=== PATIENT | male | born 1940 | race Caucasian/White ===

== ENCOUNTER 2016-03-20 10:46 | Day surgery (SDC) | payer MEDICARE ==
[~2016-03-20] VITALS: Ht 180.3 cm; Wt 93.4 kg
[~2016-03-20 10:46] MED LIST: AMLO5TAB22 PO; ASPI81TA11 PO; CARV6.252 PO; FAMO1TAB36 PO; FURO1TAB93 PO; LOSA50TA PO; MONT10TA2 PO; RIVA20 PO; SIMV20TA PO
[2016-03-20] MEDS ORDERED: SODIUM CHLORID 0.9% 500 ML IV SCH (11:15)
[2016-03-20] MEDS ORDERED: INSULIN HUMAN REGULAR 1,000 UNITS/10 ML VIAL SQ PRN (11:15)
[2016-03-20] MEDS ORDERED: METOPROLOL TARTRATE 25 MG TAB PO PRN (11:15)
[2016-03-20] MEDS ORDERED: LACTATED RINGER'S 1000 ML IV SCH (11:15)
[2016-03-20] MEDS ORDERED: ceFAZolin 2 GM PREMIX 50 ML IV SCH (11:30)
[2016-03-20] MEDS ORDERED: NS 1000 ML IV SCH (11:30)
[2016-03-20] MEDS ORDERED: MUPIROCIN 2% OINT 1 APPLIC/GM SYR NASAL SCH (11:30)
[2016-03-20] MEDS ORDERED: CHLORHEXIDINE GLUCONATE 2 % 1 PACK (2 CLOTHS) TOP SCH (11:30)
[2016-03-20] MEDS ORDERED: NO Heparin, Lovenox, Coumadin at least 12 hours prior to procedure. XX PRN (11:30)
[2016-03-20] MEDS ORDERED: POVIDONE IODINE 5% (ANTISEPSIS KIT) 4 APPLICATIONS EACH NARE SCH (11:30)
[2016-03-20] MEDS ORDERED: VANCOMYCIN HCL 1000 MG VIAL ONE (11:33)
[2016-03-20] MEDS ORDERED: SODIUM CHLOR 0.9% 250 ML INJ 250 ML ONE (11:33)
[2016-03-20] MEDS ORDERED: FURO1TAB62 PO (11:40)
[2016-03-20] MEDS ORDERED: XARE20TA PO (11:40)
[2016-03-20] MEDS ORDERED: FAMO1TAB37 PO (11:40)
[2016-03-20] MEDS ORDERED: CARV6.25 PO (11:40)
[2016-03-20] MEDS ORDERED: MONT10TA2 PO (11:40)
[2016-03-20] MEDS ORDERED: SACU1TAB4 PO (11:40)
[2016-03-20] MEDS ORDERED: SIMV20TA PO (11:40)
[2016-03-20] MEDS ORDERED: ASPI1TAB69 PO (11:40)
[2016-03-20 11:43] VITALS: BP 129/74; PULSE 86; RESP 18; TEMP 97.5; O2SAT 98
[2016-03-20 11:50] LABS: AUTOMATED NEUTROPHIL # 3.2 TH/MM3 (1.8-7.7); BASOPHIL % 0.2 % (0.0-2.0); EOSINOPHIL # 0.1 TH/MM3 (0-0.4); EOSINOPHIL % 0.5 % (0.0-4.0); HEMATOCRIT 39.6 % (39.0-51.0); LYMPHOCYTE # 20.1 TH/MM3 (1.0-4.8); MEAN CELL VOLUME 94.1 FL (80.0-100.0); MEAN CORPUSCULAR HEMOGLOBIN 31.4 PG (27.0-34.0); MEAN CORPUSCULAR HGB CONC 33.4 % (32.0-36.0); NEUT % 13.3 % (16.0-70.0); PLATELET COUNT 114 TH/MM3 (150-450); RED BLOOD COUNT 4.21 MIL/MM3 (4.50-5.90); RED CELL DISTRIBUTION WIDTH 15.9 % (11.6-17.2); WHITE BLOOD COUNT 24.2 TH/MM3 (4.0-11.0)
[2016-03-20 11:52] LABS: HEMO FLAGS AUTO DIFF
[2016-03-20 12:02] LABS: PROTHROMBIN TIME - PATIENT 11.6 SEC (9.8-11.6)
[2016-03-20 12:04] LABS: BICARBONATE 27.5 MEQ/L (21.0-32.0); POTASSIUM 3.9 MEQ/L (3.5-5.1)
[2016-03-20 12:40] LABS: ATYPICAL LYMPHOCYTES 8 % (0-0); EOSINOPHILS 1 % (0-4); NEUTROPHIL # MANUAL DIFF 3.4 TH/MM3 (1.8-7.7); POLYS (SEG NEUTROPHILS) 14 % (16-70); WBC DIFF SAMPLE 100
[2016-03-20 12:41] LABS: PLATELET ESTIMATE SMEAR LOW (NORMAL); PLATELET MORPHOLOGY NORMAL (NORMAL); SCAN/DIFF FINAL DIFF MANUAL
[2016-03-20] MEDS ORDERED: PHENYLEPH/NS 1000 MCG/10 ML SYR IV ONE (14:34)
[2016-03-20] MEDS ORDERED: PROPOFOL 200 MG/20 ML AMP IV ONE (14:34)
[2016-03-20] MEDS ORDERED: MIDAZOLAM HCL 2 MG/2 ML VIAL ONE (14:34)
[2016-03-20] MEDS ORDERED: LIDOCAINE HCL 2% 50 ML VIAL ONE (14:43)
[2016-03-20] MEDS ORDERED: VANCOMYCIN 500 MG VIAL ONE (14:43)
[2016-03-20] MEDS ORDERED: ACET300T2 PO (16:29)
[2016-03-20] MEDS ORDERED: SOTA80 PO (16:29)
[2016-03-20] MEDS ORDERED: CEPH-460 PO (16:29)
[2016-03-20] MEDS ORDERED: SODIUM CHLORIDE 0.9% FLUSH 5 ML FLUSH IVF PRN (16:30)
[2016-03-20] MEDS ORDERED: ACETAMINOPHEN/CODEINE 300 MG/30 MG TAB PO PRN ×2 (16:30)
[2016-03-20] MEDS ORDERED: ONDANSETRON HCL 4 MG/2 ML VIAL IV PRN (16:30)
[2016-03-20] MEDS ORDERED: PILL SPLITTER OTHER PRN (17:00)
[2016-03-20] MEDS ORDERED: FUROSEMIDE 20 MG TAB PO SCH (17:00)
[2016-03-20] MEDS ORDERED: RIVAROXABAN 20 MG TAB PO SCH (18:30)
[2016-03-20] MEDS ORDERED: MONTELUKAST SODIUM 10 MG TAB PO SCH (21:00)
[2016-03-20] MEDS ORDERED: FAMOTIDINE 20 MG TAB PO SCH (21:00)
[2016-03-20] MEDS ORDERED: SOTALOL HCL 80 MG TAB PO SCH (21:00)
[2016-03-20] MEDS ORDERED: SODIUM CHLORIDE 0.9% FLUSH 5 ML FLUSH IVF SCH (21:00)
[2016-03-21] MEDS ORDERED: SACUBITRIL/VALSARTAN 97 MG-103 MG TAB PO SCH (09:00)
[2016-03-21] MEDS ORDERED: PRAVASTATIN SOD 40 MG TAB PO SCH (09:00)
[2016-03-21] MEDS ORDERED: CARVEDILOL 6.25 MG TAB PO SCH (09:00)
[2016-03-21] MEDS ORDERED: ASPIRIN EC 81 MG TABEC PO SCH (09:00)
--- NOTE | 2016-03-21 14:15 | EKG ---
Date Performed: 03/20/2016 Time Performed: 11:56:02 PTAGE: 75 years EKG: Demand pacing Pacemaker rhythm - no further analysis Compared to previous tracing the patie nt has developed underlying atrial fibrillation with a controlled ventricular response. The patient w as in Sinus rhythm on previous tracing. The rhythm remains largely paced but clinical correlation will be important. Ab normal ECG PREVIOUS TRACING : 12/29/2013 05.53 DOCTOR: Inocencia Jesus Interpretating Date/Time 03/21/2016 14:15:45
--- NOTE | 2016-03-23 08:36 | MP ---
cc: RICH PRASAD M.D. DATE OF SURGERY: 03/20/2016 OPERATION Biventricular pacer defibrillator removal, biventricular pacer defibrillator replacement and device testing. INDICATION Mr. Guerra is a 75-year-old gentleman with ischemic cardiomyopathy, congestive heart failure, ejection fraction around 25% on optimal medical treatment, previous biventricular pacer defibrillator implanted in 2012. Currently the generator is end of life on optimal medical treatment for years. Admitted for generator replacement and device testing. The risks, the nature and the benefit of the procedure are clearly stated to him. The risks include pneumothorax, cardiac perforation, stroke and even . He understands and agreed to proceed. PROCEDURE After written informed consent was obtained, the patient was brought to the EP lab where he was prepped and draped in the usual sterile fashion. Conscious sedation was initiated and maintained throughout the procedure by anesthesiologist. Once sedation was verified, the left infraclavicular area over the existing generator was anesthetized with 2% Xylocaine. Using the ___ blade a 3-cm incision was made over the existing generator. This incision was then taken down deep fascial layer using Bovie cautery and blunt dissection. Once exposed the generator was removed from the pocket. Scar tissue was removed around the lead. The pocket was expanded, pocket revision was performed. Then the leads were disconnected from the generator and connected to the new generator and placed into the pocket. Previous to that the pocket was copiously irrigated using antibiotic solution. I did proceed with device testing. Initial induction consists of T-wave shock ___ ventricular fibrillation that failed to respond to 20 joules, failed 30 joules and was rescued by external 200 joules. At that point the patient was observed. Systolic blood pressure was in the 80s, 90s. I decided not to proceed with further testing. I proceeded with wound closure. The deep fascial layer was approximated using #2-0 Vicryl suture in a continuous fashion. The subcutaneous layer was approximated using #2-0 Vicryl suture in a continuous fashion. The subcuticular layer was approximated using #2-0 Vicryl suture in a continuous fashion. Dermabond adhesive was applied to the wound followed by sterile pressure dressing. There was no complication. The patient tolerated the procedure. Blood loss was minimal. 1. Explanted hardware. The explanted biventricular pacer defibrillator is a [employer], model number [id number] [id number]-T, serial number [id number]. That was implanted in 2010. 2. Implanted hardware. The implanted biventricular pacer defibrillator is a [employer]ronik, model number [id number], serial number [id number]. 3. Threshold. The right atrial pacing threshold cannot be measured. The patient in atrial fibrillation, lead impedance 480 ohms, A Fib wave at 1.1 mV. The right ventricular pacing sensing threshold in bipolar mode was 0.5 volts at 0.4 milliseconds. Lead impedance 420 ohms, R-wave at 7.8 mV. The left ventricular pacing threshold in the bipolar mode was 0.9 volts at 0.5 milliseconds, lead impedance 405 ohms. The right ventricular defibrillatory threshold could not be reached, the patient failed 20 and 30 joules. CONCLUSION Successful biventricular pacer defibrillator removal, biventricular pacer defibrillator replacement. Unsuccessful device testing. COMMENT AND RECOMMENDATION The patient is going to be transferred to the telemetry unit. Will be observed. I will add Sotalol to the current medical regimen based on the renal function. The patient will be discharged home today, will be followed in the office in 3 weeks. MD ERIC Borrero/MARA /4:07 PM /8:13 AM
== END 2016-03-20 18:04 | disposition home or self-care (01) ==
LOC: HDOC 10:46 → HDIC 10:47 → HDOC 18:04
PROVIDERS: ATTEND Internal Medicine Interventional Cardiology
DX: Z45.02 Encounter for adjustment and management of automatic implantable cardiac defibrillator (principal); I11.0 Hypertensive heart disease with heart failure; I50.9 Heart failure, unspecified; I48.91 Unspecified atrial fibrillation; I42.9 Cardiomyopathy, unspecified; I25.2 Old myocardial infarction; J44.9 Chronic obstructive pulmonary disease, unspecified; Z79.82 Long term (current) use of aspirin; Z79.01 Long term (current) use of anticoagulants
CPT/HCPCS: 33264; 80048; 85007; 85027; 85610; 85730; 86850; 86900; 86901; 93005; 93641; C1882; J2250; J2370; J3010; J3370; J7050

== ENCOUNTER 2016-10-02 14:55 | Inpatient (IN) | payer MEDICARE ==
[2016-10-02] VITALS (7 sets, daily range): BP systolic 97–133; BP diastolic 60–85; PULSE 94–110; RESP 18–28; TEMP 97–98.9; O2SAT 94–97
[~2016-10-02] VITALS: Ht 180.3 cm; Wt 94.5 kg
[~2016-10-02 14:55] MED LIST changes: +ACET300T2 PO; -AMLO5TAB22 PO; +ASPI1TAB69 PO; -ASPI81TA11 PO; +CARV6.25 PO; -CARV6.252 PO; +CEPH-460 PO; -FAMO1TAB36 PO; +FAMO1TAB37 PO; +FURO1TAB62 PO; -FURO1TAB93 PO; -LOSA50TA PO; -RIVA20 PO; +SACU1TAB4 PO; +SOTA80 PO; +XARE20TA PO
--- NOTE | 2016-10-02 15:04 | PD ---
Physical Exam Date Seen by Provider: Oct 02, 2016 Time Seen by Provider: 15:02 Narrative 76 YOWM C/O SOB X 3WEEKS. H/O COPD. SEEN BY PMD LAST WEEK. CP WITH BREATHING. VS REVIEWED WAITING FOR BED PLACEMENT Data Data Last Documented VS Vital Signs Date Time Temp Pulse Resp B/P Pulse Ox O2 Delivery O2 Flow Rate FiO2 10/02/16 14:58 98.9 110 18 133/85 94 MDM Supervised Visit with ZAKIYA: René Duarte Oct 02, 2016 15:04
[2016-10-02] MEDS ORDERED: SODIUM CHLORIDE 0.9% FLUSH 10 ML FLUSH IVF PRN (16:00)
[2016-10-02] MEDS ORDERED: ASPI81TA11 PO (16:07)
[2016-10-02] MEDS ORDERED: FERR325T8 PO (16:07)
--- NOTE | 2016-10-02 16:10 | PD ---
HPI Chief Complaint: Respiratory Distress Time Seen by Provider: 16:04 Travel History International Travel<30 days: No Contact w/Intl Traveler<30days: No Traveled to known affect area: No History of Present Illness HPI Patient comes in complaining of shortness of breath ongoing for 3 weeks. Patient states went to his primary care doctor was placed on antibiotics and steroids, which helped the first time however was seen in follow-up approximately 10 days ago and placed on additional antibiotics with no improvement of symptoms. Patient states that he thinks that he had a cold and did not change his CPAP machine mask causing him to reinfect himself. Patient reports increased dyspnea on exertion similar to when he previously had CHF. Patient also complaining of intermittent chest pain more on the right than left similar to heart attack in the past. 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 Patient does have a history of PE taking Xarelto and baby aspirin. Patient reports he did not take his aspirin this morning. Denies any nausea, vomiting, loss change in bowel or bladder, numbness tingling anywhere, headaches, back pain, or known fevers. Patient does report occasional intermittent nonproductive cough. Patient states he feels like he needs to cough something up as been unable to cough anything up. PFSH Past Medical History Hx Anticoagulant Therapy: Yes (aspirin, Xarelto) Arthritis: No Asthma: No Atrial Fibrillation: Yes Autoimmune Disease: No Heart Rhythm Problems: Yes Cancer: Yes (PATIENT STATES DIAGNOSED WITH CLL 2012) Cardiovascular Problems: Yes (pacer, chf, cad) High Cholesterol: No Chemotherapy: No Chest Pain: Yes Congestive Heart Failure: Yes COPD: Yes Cerebrovascular Accident: No Coronary Artery Disease: Yes Diabetes: No Diminished Hearing: Yes Endocrine: No Gastrointestinal Disorders: Yes (diverticulosis) GERD: No Genitourinary: No Hepatitis: No Hiatal Hernia: No Immune Disorder: No Implanted Vascular Access Dvce: Yes Kidney Stones: No Musculoskeletal: No Neurologic: No Psychiatric: No Reproductive: No Respiratory: Yes (Pleural effusion , COPD, sleep apnea) Migraines: No Myocardial Infarction: Yes (NOV 2015) Radiation Therapy: No Renal Failure: No Seizures: No Sickle Cell Disease: No Sleep Apnea: No Thyroid Disease: No Ulcer: No Influenza Vaccination: Yes (Flu booster given 09/2016) Past Surgical History Abdominal Surgery: No AICD: No Arteriovenous Shunt: No Body Medical Devices: POWER PORT TO RIGHT CHEST Cardiac Surgery: Yes (DEFIBRILATOR, STENTS X 3) Ear Surgery: No Endocrine Surgery: No Eye Surgery: No Genitourinary Surgery: No Gynecologic Surgery: No Insulin Pump: No Joint Replacement: No Oral Surgery: No Pacemaker: Yes Thoracic Surgery: No Other Surgery: Yes (Thoracenthesis ) Social History Alcohol Use: No Tobacco Use: No (FORMER) Substance Use: No Allergies-Medications (Allergen,Severity, Reaction): Coded Allergies: No Known Allergies (Unverified , 12/27/13) Reported Meds & Prescriptions Reported Meds & Active Scripts Active Reported Ferrous Sulfate 325 Mg (65 Mg Iron) Tablet 325 Mg PO BID Aspirin EC (Aspirin) 81 Mg Tabdr 81 Mg PO DAILY Xarelto (Rivaroxaban) 20 Mg Tab 20 Mg PO DAILY Singulair (Montelukast Sodium) 10 Mg Tab 10 Mg PO HS Simvastatin 20 Mg Tab 20 Mg PO DAILY Pepcid (Famotidine) 20 Mg Tab 20 Mg PO BID Lasix (Furosemide) 20 Mg Tab 20 Mg PO 2XWEEK Entresto (Sacubitril-Valsartan) 97-103 Mg Tab 1 Tab PO DAILY Coreg (Carvedilol) 6.25 Mg Tab 6.25 Mg PO DAILY Review of Systems Except as stated in HPI: all other systems reviewed are Neg Physical Exam Narrative GENERAL: Well-developed, overly nourished, in no acute distress, and non-ill appearing. SKIN: Focused skin assessment warm and dry. HEAD: Atraumatic. Normocephalic. EYES: Pupils equal and round. EOMI. No scleral icterus. No injection or drainage. ENT: No nasal bleeding or discharge. Mucous membranes pink and moist. NECK: Trachea midline. No JVD. Supple. No nuclear rigidity. CARDIOVASCULAR: Regular rate and rhythm. No murmur appreciated. RESPIRATORY: No accessory muscle use. No respiratory distress. Rales noted bilateral lower lung bases. GASTROINTESTINAL: Abdomen soft, non-tender, nondistended, and no guarding. Hepatic and splenic margins not palpable. Normal bowel sounds 4. No pulsatile mass. MUSCULOSKELETAL: No obvious deformities. No clubbing. No cyanosis. 1+ nonpitting pedal edema laterally. Full range of motion. NEUROLOGICAL: Awake and alert. No obvious cranial nerve deficits. Motor grossly within normal limits. Normal speech. PSYCHIATRIC: Appropriate mood and affect; insight and judgment normal. Data Data Last Documented VS Vital Signs Date Time Temp Pulse Resp B/P Pulse Ox O2 Delivery O2 Flow Rate FiO2 10/02/16 19:42 102 24 97/60 97 Nasal Cannula 3 10/02/16 14:58 98.9 Orders Complete Blood Count With Diff (10/02/16 15:55) Basic Metabolic Panel (Bmp) (10/02/16 15:55) B-Type Natriuretic Peptide (10/02/16 15:55) Act Partial Throm Time (Ptt) (10/02/16 15:55) Prothrombin Time / Inr (Pt) (10/02/16 15:55) Magnesium (Mg) (10/02/16 15:55) Ckmb (Isoenzyme) Profile (10/02/16 15:55) Troponin I (10/02/16 15:55) Iv Access Insert/Monitor (10/02/16 15:55) Electrocardiogram (10/02/16 15:55) Ecg Monitoring (10/02/16 15:55) Oximetry (10/02/16 15:55) Oxygen Administration (10/02/16 15:55) Chest, Single Ap (10/02/16 15:55) Sodium Chloride 0.9% Flush (Ns Flush) (10/02/16 16:00) Arterial Blood Gas (Abg) (10/02/16 15:55) Ct Pulmonary Angiogram (10/02/16 15:55) Aspirin Chew (Aspirin Chew) (10/02/16 16:15) Ceftriaxone Inj (Rocephin Inj) (10/02/16 18:15) Azithromycin Inj (Zithromax Inj) (10/02/16 18:15) Blood Culture (10/02/16 18:08) Furosemide Inj (Lasix Inj) (10/02/16 18:15) Iohexol 350 Inj (Omnipaque 350 Inj) (10/02/16 18:45) Troponin I (10/02/16 18:53) B-Type Natriuretic Peptide (10/02/16 18:53) Consult Medical Oncology (10/02/16 ) Aspirin Ec (Ecotrin Ec) (10/03/16 09:00) Carvedilol (Coreg) (10/03/16 09:00) Famotidine (Pepcid) (10/02/16 21:00) Ferrous Sulfate (Ferrous Sulfate) (10/02/16 21:00) Montelukast (Singulair) (10/02/16 21:00) Rivaroxaban (Xarelto) (10/03/16 09:00) Sacubitril-Valsartan 97-103 Mg (Entresto (10/03/16 09:00) Pravastatin (Pravachol) (10/03/16 09:00) Admit Order (Ed Use Only) (10/02/16 19:38) Admit To Inpatient (10/02/16 ) Vital Signs (Adult) Q4H (10/02/16 19:38) Activity Oob With Assistance (10/02/16 19:38) Range Scientist / Telemetry .CONTINUOUS (10/02/16 19:38) Diet Heart Healthy (10/03/16 Breakfast) Sodium Chloride 0.9% Flush (Ns Flush) (10/02/16 19:45) Sodium Chloride 0.9% Flush (Ns Flush) (10/02/16 21:00) Ondansetron Inj (Zofran Inj) (10/02/16 19:45) Basic Metabolic Panel (Bmp) (10/03/16 06:00) Complete Blood Count With Diff (10/03/16 06:00) Creatine Kinase (Cpk) (10/02/16 19:38) Creatine Kinase (Cpk) (10/03/16 01:38) Troponin I (10/02/16 19:38) Troponin I (10/03/16 01:38) Scd Bilateral/Knee High DYANA.BID (10/02/16 19:38) Naloxone Inj (Narcan Inj) (10/02/16 19:45) Docusate Sodium-Senna (Kamilah-Colace) (10/02/16 21:00) Magnesium Hydroxide Liq (Milk Of Magnesi (10/02/16 19:45) Sennosides (Senokot) (10/02/16 19:45) Bisacodyl Supp (Dulcolax Supp) (10/02/16 19:45) Lactulose Liq (Lactulose Liq) (10/02/16 19:45) Inpatient Certification (10/02/16 ) Furosemide Inj (Lasix Inj) (10/02/16 19:45) Echo 2d Comp With Doppler (10/02/16 ) Consult Hematology (10/02/16 ) Azithromycin Inj (Zithromax Inj) (10/03/16 18:00) Ceftriaxone Inj (Rocephin Inj) (10/03/16 20:00) Labs Laboratory Tests Test 10/02/16 10/02/16 16:09 16:12 Blood Gas Puncture Site RT RADIAL Blood Gas Patient Temperature 98.6 Blood Gas HCO3 21 mmol/L Blood Gas Base Excess -2.5 mmol/L Blood Gas Oxygen Saturation 93 % Arterial Blood pH 7.46 Arterial Blood Partial 29 mmHg Pressure CO2 Arterial Blood Partial 70 mmHG Pressure O2 Arterial Blood Oxygen Content 17.3 Vol % Arterial Blood 2.0 % Carboxyhemoglobin Arterial Blood Methemoglobin 0.3 % Blood Gas Hemoglobin 13.3 G/DL Oxygen Delivery Device NASAL CANNULA Blood Gas Liter Flow 2 L/M White Blood Count 72.0 TH/MM3 Red Blood Count 4.37 MIL/MM3 Hemoglobin 13.8 GM/DL Hematocrit 42.6 % Mean Corpuscular Volume 97.6 FL Mean Corpuscular Hemoglobin 31.5 PG Mean Corpuscular Hemoglobin 32.3 % Concent Red Cell Distribution Width 17.0 % Platelet Count 130 TH/MM3 Mean Platelet Volume 10.7 FL Neutrophils (%) (Auto) 13.7 % Lymphocytes (%) (Auto) 84.8 % Monocytes (%) (Auto) 1.4 % Eosinophils (%) (Auto) 0.0 % Basophils (%) (Auto) 0.1 % Neutrophils # (Auto) 9.8 TH/MM3 Lymphocytes # (Auto) 61.1 TH/MM3 Monocytes # (Auto) 1.0 TH/MM3 Eosinophils # (Auto) 0.0 TH/MM3 Basophils # (Auto) 0.0 TH/MM3 CBC Comment AUTO DIFF Differential Total Cells 100 Counted Neutrophils % (Manual) 9 % Lymphocytes % 89 % Monocytes % 2 % Neutrophils # (Manual) 6.5 TH/MM3 Differential Comment FINAL DIFF MANUAL Smudge Cells PRESENT Platelet Estimate LOW Platelet Morphology Comment NORMAL Prothrombin Time 12.6 SEC Prothromb Time International 1.1 RATIO Ratio Activated Partial 26.6 SEC Thromboplast Time Sodium Level 141 MEQ/L Potassium Level 4.7 MEQ/L Chloride Level 110 MEQ/L Carbon Dioxide Level 23.8 MEQ/L Anion Gap 7 MEQ/L Blood Urea Nitrogen 20 MG/DL Creatinine 1.08 MG/DL Estimat Glomerular Filtration 66 ML/MIN Rate Random Glucose 110 MG/DL Calcium Level 8.7 MG/DL Magnesium Level 2.2 MG/DL Total Creatine Kinase 45 U/L Troponin I 0.02 NG/ML B-Type Natriuretic Peptide 2405 PG/ML MDM Medical Decision Making Medical Screen Exam Complete: Yes Emergency Medical Condition: Yes Interpretation(s) EKG reviewed by Dr. Narvaez shows a fibrillation with ventricular rate of 103. No STEMI. Chest x-ray read by the radiologist shows: 1. Bibasilar patchiness consistent with atelectasis and/or mild infiltrates. 2. Cardiomegaly. 3. Probable small right pleural effusion. CT of the chest read by the radiologist shows: 1. Suboptimal contrast bolus but no definite pulmonary embolus. 2. Small to moderate bilateral pleural effusions. Moderate emphysema. 3. Cardiomegaly with severe coronary calcifications. Pacer leads unchanged. Differential Diagnosis Acute coronary syndrome, CHF exacerbation, COPD exacerbation, metastatic disease , electrolyte abnormality, pneumonia, pneumothorax, other Narrative Course Patient was seen and examined. IV was established. Patient placed on embedded case manager. Initial laboratory and radiologic studies were ordered. Discussed patient with Dr. Narvaez, who is in agreement with plan of care. After lab results posted Dr. Narvaez ordered IV Lasix and IV antibiotics for patient. Discussed patient with oncology who will see the patient in consult. Discussed all findings and plan of care with patient, who is agreeable for admission. All questions were answered.Discussed patient with Dr. Narvaez, who is in agreement with disposition. Discussed patient with hospitalist who is agreeable to admit the patient. Physician Communication Physician Communication [address] Arizmendi, who does not feel patient's CLL is causing his symptoms and that patient can be treated as normal CHF exacerbation. He will see patient in consult. [address] Donohue, is agreeable to this patient for Dr. Kathleen. Diagnosis Primary Impression: CHF exacerbation Qualified Code: I50.9 - Acute on chronic congestive heart failure, unspecified congestive heart failure type Additional Impression: CLL (chronic lymphocytic leukemia) Admitting Information Admitting Physician Requests: Admit Condition: Stable Gonzalo Baxter Oct 02, 2016 16:10
[2016-10-02] MEDS ORDERED: ASPIRIN 81 MG CHEW TAB PO ONE (16:15)
[2016-10-02 16:19] LABS: BLOOD GAS BASE EXCESS -2.5 mmol/L (-2-2); BLOOD GAS HCO3 21 mmol/L (22-26); BLOOD GAS METHEMOGLOBIN 0.3 % (0-2); BLOOD GAS O2 HGB SATURATION 93 % (90-100); BLOOD GAS OXYGEN CONTENT 17.3 Vol % (12.0-20.0); BLOOD GAS PCO2 29 mmHg (38-42); BLOOD GAS PO2 70 mmHG (61-120); BLOOD GAS TOTAL HGB 13.3 G/DL (12.0-16.0); CRITICAL VALUE NO; DRAW SITE RT RADIAL; LITER FLOW 2 L/M; NUMBER OF ARTERIAL PUNCTURES 1; OXYGEN DEVICE NASAL CANNULA; STAT YES; TEMP CORR TO 98.6; ULNAR PULSE PRESENT
--- NOTE | 2016-10-02 16:33 | RADRPT ---
EXAM DATE/TIME: 10/02/2016 16:15 [facility] COMPARISON: CHEST SINGLE AP, January 02, 2013, 7:06. INDICATIONS : Chest pain and shortness of breath. MEDICAL HISTORY : Pulmonary embolus, Chronic lymphatic leukemia, CHF, CAD, HLD, Diverticulosis, HTN, Anemia, COPD. SURGICAL HISTORY : Coronary stent, Pacemaker placement ENCOUNTER: Initial ACUITY: 3 days PAIN SCORE: 5/10 LOCATION: Bilateral chest FINDINGS: The heart is enlarged. Bibasilar patchiness is noted consistent with atelectasis and/or infiltrates. A small right pleural effusion is likely. A right internal jugular [id number] has its tip at the junction of the superior vena cava and right atrium. A left subclavian dual lead pacemaker has its t ips in the right heart. There is no pneumothorax. CONCLUSION: 1. Bibasilar patchiness consistent with atelectasis and/or mild infiltrates. 2. Cardiomegaly. 3. Probable small right pleural effusion. Jose Roberto Hylton MD on October 02, 2016 at 16:28 Board Certified Radiologist. This report was verified electronically.
[2016-10-02 17:03] LABS: APTT (PATIENT) 26.6 SEC (24.3-30.1); INTERNATIONAL NORMALIZED RATIO 1.1 RATIO; PROTHROMBIN TIME - PATIENT 12.6 SEC (9.8-11.6)
[2016-10-02 17:08] LABS: AUTOMATED NEUTROPHIL # 9.8 TH/MM3 (1.8-7.7); BASOPHIL % 0.1 % (0.0-2.0); HEMATOCRIT 42.6 % (39.0-51.0); LYMPH % 84.8 % (9.0-44.0); LYMPHOCYTE # 61.1 TH/MM3 (1.0-4.8); MEAN CELL VOLUME 97.6 FL (80.0-100.0); MEAN CORPUSCULAR HEMOGLOBIN 31.5 PG (27.0-34.0); MEAN CORPUSCULAR HGB CONC 32.3 % (32.0-36.0); MONO % 1.4 % (0.0-8.0); NEUT % 13.7 % (16.0-70.0); PLATELET COUNT 130 TH/MM3 (150-450); RED BLOOD COUNT 4.37 MIL/MM3 (4.50-5.90)
[2016-10-02 17:34] LABS: HEMO FLAGS AUTO DIFF
[2016-10-02 17:43] LABS: BICARBONATE 23.8 MEQ/L (21.0-32.0); MAGNESIUM 2.2 MG/DL (1.5-2.5)
[2016-10-02 17:56] LABS: POTASSIUM 4.7 MEQ/L (3.5-5.1)
[2016-10-02 18:04] LABS: NEUTROPHIL # MANUAL DIFF 6.5 TH/MM3 (1.8-7.7); POLYS (SEG NEUTROPHILS) 9 % (16-70); WBC DIFF SAMPLE 100
[2016-10-02 18:06] LABS: PLATELET ESTIMATE SMEAR LOW (NORMAL); PLATELET MORPHOLOGY NORMAL (NORMAL); SCAN/DIFF FINAL DIFF MANUAL; SMUDGE CELLS PRESENT PRESENT
[2016-10-02] MEDS ORDERED: FUROSEMIDE 40 MG/4 ML VIAL IV PUSH ONE (18:15)
[2016-10-02] MEDS ORDERED: cefTRIAXone INJ 1,000 MG in SODIUM CHLORIDE 0.9% INJ 100 ML IV ONE (18:15)
[2016-10-02] MEDS ORDERED: AZITHROMYCIN INJ 500 MG in SODIUM CHLOR 0.9% 250 ML INJ 250 ML IV ONE (18:15)
[2016-10-02] MEDS ORDERED: IOHEXOL 350 MG/ML 10 ML VIAL (for RAD DIAG) IV ONE (18:45)
--- NOTE | 2016-10-02 19:25 | RADRPT ---
EXAM DATE/TIME: 10/02/2016 18:42 [facility] COMPARISON: No previous studies available for comparison. INDICATIONS : Shortness of breath. IV CONTRAST: 75 cc Omnipaque 350 (iohexol) IV RADIATION DOSE: 23.44 CTDIvol (mGy) MEDICAL HISTORY : Congestive hearrt failure. Myocardial infarction. Hypertension. SURGICAL HISTORY : Pacemaker. ENCOUNTER: Initial ACUITY: 1 day PAIN SCALE: 0/10 LOCATION: chest TECHNIQUE: Volumetric scanning of the chest was performed using a pulmonary embolism protocol MIP images were re constructed. Using automated exposure control and adjustment of the mA and/or kV according to patien t size, radiation dose was kept as low as reasonably achievable to obtain optimal diagnostic quality images. DICOM format image data is available electronically for review and comparison. Follow-up recommendations for detected pulmonary nodules are based at a minimum on nodule size and pa tient risk factors according to Fleischner Society Guidelines. FINDINGS: Contrast bolus is suboptimal with poor opacification of the lower lobe arteries but no definite embol us is identified. There are [id number] bilateral pleural effusions. There is underlying moderate emphysema. Ther e is stable parenchymal scarring in the upper lungs, right greater than left. Severe coronary calcifications are noted. Heart size is enlarged. Pacer leads present in right atrium , right ventricle and coronary sinus. No acute findings in the upper abdomen. CONCLUSION: 1. Suboptimal contrast bolus but no definite pulmonary embolus. 2. Small to moderate bilateral pleural effusions. Moderate emphysema. 3. Cardiomegaly with severe coronary calcifications. Pacer leads unchanged. René Casas MD on October 02, 2016 at 19:15 Board Certified Radiologist. This report was verified electronically.
[2016-10-02] MEDS ORDERED: ONDANSETRON HCL 4 MG/2 ML VIAL IVP PRN (19:45)
[2016-10-02] MEDS ORDERED: SODIUM CHLORIDE 0.9% FLUSH 10 ML FLUSH IV FLUSH PRN (19:45)
[2016-10-02] MEDS ORDERED: MAGNESIUM HYDROXIDE SUSP 30 ML CUP PO PRN (19:45)
[2016-10-02] MEDS ORDERED: NALOXONE HCL 0.4 MG/ML AMP IV PRN (19:45)
[2016-10-02] MEDS ORDERED: LACTULOSE SYRUP 20 GM/30 ML CUP PO PRN (19:45)
[2016-10-02] MEDS ORDERED: SENNOSIDES 8.6 MG TAB PO PRN (19:45)
[2016-10-02] MEDS: FUROSEMIDE 40 MG/4 ML VIAL IV PUSH SCH (19:45)
[2016-10-02] MEDS ORDERED: BISACODYL 10 MG SUPP RECTAL PRN (19:45)
[2016-10-02] MEDS: DOCUSATE SODIUM 50 MG/SENNA 8.6 MG TAB PO SCH (21:00)
[2016-10-02] MEDS: SODIUM CHLORIDE 0.9% FLUSH 10 ML FLUSH IV FLUSH SCH (21:00)
[2016-10-02] MEDS: FAMOTIDINE 20 MG TAB PO SCH (23:11)
[2016-10-02] MEDS: FERROUS SULFATE 325 MG (65 MG ELEMENTAL IRON) TAB PO SCH (23:11)
[2016-10-02] MEDS: MONTELUKAST SODIUM 10 MG TAB PO SCH (23:11)
[2016-10-03] VITALS (9 sets, daily range): BP systolic 105–159; BP diastolic 64–76; PULSE 50–120; RESP 16–20; TEMP 97–97.8; O2SAT 96–98
--- NOTE | 2016-10-03 08:55 | MB ---
cc: SINA TEJADA MD, HANSCY M.D. AILANI, RAJESH K. MD DATE OF CONSULTATION 10/03/2016 DATE OF 1940 REASON FOR CONSULTATION Patient with a history of chronic lymphocytic leukemia; positive for disease in ZP-70 mutation. Initial diagnosis was established in 2012. Treatment history to date: The patient is treatment naive. CHIEF COMPLAINT Progressive difficulty breathing especially when laying flat. The patient also reports having swollen legs. HISTORY OF PRESENT ILLNESS Mr. Guerra is a very pleasant 76-year-old man who was diagnosed in 2012 with chronic lymphocytic leukemia. He was under the care of my now retired associate Dr. Mj Chamorro, who had been monitoring the patient off therapy. The patient was most recently seen by Dr. Chamorro in November of 2015 and at that time was told of progression of his CLL. The patient was advised systemic therapy and an infusion port was placed. Shortly after that, Mr. Guerra suffered a myocardial infarction, he underwent cardiac stenting at the [facility] and missed subsequent follow ups with Dr. Chamorro. The patient has not since then been able to establish hematology followup and was scheduled to meet with Dr. Benson Watson in the upcoming weeks. He became increasingly short of breath and presented to [facility] last night. His WBC count at the time of presentation was noted to be 72,000 with an absolute lymphocyte count of 61,000. He had no evidence of anemia with a hemoglobin of 13.8 gm/dl and he had only minor thrombocytopenia with platelet count of 130,000. The patient specifically denies B-type symptoms of fevers, night sweats, chills, weight loss, loss of appetite or fatigue. PAST MEDICAL HISTORY 1. Coronary artery disease 2. Congestive heart failure 3. Chronic lymphocytic leukemia 4. COPD 5. Personal history of tobaccoism. PAST SURGICAL HISTORY 1. Coronary artery stent placement x2. 2. Implanted defibrillator placement. FAMILY HISTORY Father of malignancy; the patient is not certain what type. Mother at the age of 87. The patient's brother has coronary artery disease and is status post coronary artery bypass graft surgery. SOCIAL HISTORY The patient lives at home with his ex-. 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 He reports formerly being a smoker, but quit smoking in the 1970s. He denies alcohol abuse. ALLERGIES NO KNOWN DRUG ALLERGIES. CURRENT INPATIENT MEDICATIONS 1. Azithromycin 500 mg IV q.24 h 2. Ceftriaxone one gram IV q.24 h 3. Aspirin 81 mg daily 4. Coreg 6.25 mg p.o. daily 5. Famotidine 20 mcg p.o. t.i.d. 6. Ferrous sulfate 325 mg p.o. b.i.d. 7. Furosemide 40 mcg IV twice daily 8. Lactulose 30 mg p.o. daily for severe constipation 9. Milk of magnesia as needed for constipation 10. Zofran 4 mg IV q.6 h as needed for nausea and vomiting. 11. Pravastatin 40 mcg p.o. daily. 12. Xarelto 20 mg p.o. daily REVIEW OF SYSTEMS A 13-point review of systems were obtained. The following are the pertinent positives and negatives: CONSTITUTIONAL: The patient denies fevers, chills, night sweats, weight loss or loss of appetite. HEENT: Denies headaches, blurry vision, difficulty swallowing or sore throat. RESPIRATORY: Reports exertional dyspnea, denies cough or hemoptysis. Denies pleuritic chest pain. CARDIOVASCULAR: Reports exertional dyspnea, reports orthopnea and PND, reports lower extremity edema. He denies palpitations or angina-like chest pain. GI: Denies nausea, vomiting, diarrhea hematochezia, melena, abdominal distension or yellow jaundice. : No complaints. MUSCULOSKELETAL: Denies any acute complaints. No other complaints reported. PHYSICAL EXAMINATION VITAL SIGNS: Temperature 97 degrees Fahrenheit, heart rate 91 beats minute, respiratory rate 18, blood pressure 108/66, O2 sats 97% on three liters nasal cannula. GENERAL PHYSICAL APPEARANCE: Mr. Guerra is an elderly male, he is sitting up on a bedside chair. He appears to be in no acute distress. He has a calm and collected composure. HEENT: Head atraumatic, normocephalic, conjunctive are not pale. Sclerae are anicteric, EOMI, PERRLA, oral exam, no pharyngeal erythema. NECK: No palpable cervical or supraclavicular adenopathy. RESPIRATORY: Good air movement bilaterally. No added breath sounds. CARDIOVASCULAR: Regular rate and rhythm, S1-S2 without any obvious murmurs, rubs or gallops. ABDOMEN: Thin belly, soft, nontender, nondistended. No palpable organ enlargement, specifically splenomegaly. EXTREMITIES: Lower extremities have trace pretibial edema bilaterally. HEME/LYMPH EXAMINATION: The patient has no palpable cervical, supraclavicular, axillary or inguinal lymphadenopathy appreciated. SKIN: Examination appears benign. LABORATORY FINDINGS Blood work dated 10/02/2016: WBC count 72, hemoglobin 13.8 gm/dl, hematocrit 42.6%, platelet count is 130, absolute neutrophil count is 9.8, absolute lymphocyte count 1.1. Lymphocyte percentage is 89%. Chemistries: Dated 10/02/2016: Sodium 141, potassium 4.7, chloride 110, bicarbonate 24, BUN 20, creatinine 1, random glucose 110, calcium 8.7, magnesium 2.2, BNP is 3143. IMAGING STUDIES CT angiogram dated 10/02/2016 indicates suboptimal contrast bolus but no definite evidence of pulmonary embolus. Small to moderate bilateral pleural effusions, moderate emphysema. Cardiomegaly with severe coronary artery calcifications. Pacemaker leads are unchanged. ASSESSMENT Mr. Guerra is a very pleasant 76-year-old man with a four-year history of chronic lymphocytic leukemia. His CLL has not yet required systemic therapy. He had been previously under the care of Dr. Mj Chamorro until Dr. Chamorro's jail. Over the past eight months since Dr. Chamorro retired, Mr. Guerra has yet to reestablish hematology followup. The patient, over the past year, has had issues with coronary artery disease and has required one coronary angiogram with stenting. This was performed last fall at [facility]. Additionally, the patient has been under care of Dr. Tellez for management of his congestive heart failure as well as his coronary artery disease. The patient reports having had increasing difficulty breathing with exertion, as well as increasing difficulty breathing when reclining or laying down in bed over the past two weeks. He came into the hospital for further workup and management. Imaging studies indicate no evidence of pulmonary emboli. BNP was noted to be elevated above 3000. His symptoms were attributed to congestive heart failure and he is currently being diuresed. From a hematologic standpoint, the patient's total white cell count and his absolute lymphocyte count in particular are noted to be increased. He has no evidence of anemia and has mild thrombocytopenia at this time. The hematology service has been asked to see him to determine if his CLL may be contributing to his current symptoms and also to determine if there is an indication for imminent systemic therapy. RECOMMENDATIONS CLL: Given this patient's lack of B-type symptoms of fevers, chills, night sweats, weight loss, lymphadenopathy or end-organ damage, as well as lack of evidence of anemia or thrombocytopenia related to CLL, I am not able to conclude his CLL warrants systemic therapy at this time. Typically, we monitor individuals with CLL almost regardless of the absolute lymphocyte count so long as they are asymptomatic. Often times, the patient remains asymptomatic with absolute lymphocyte counts in the 150,000-200,000 range. Because CLL cells typically are mature lymphocytes, they tend not to interfere with microcirculation. There is a phenomenon of leukostasis which occurs with myeloid blasts which are typically larger cells, however, that is not a phenomenon described as commonly associated with CLL. I would, therefore, recommend the patient be treated as per the internal medicine and cardiology services assessment of CHF exacerbation. He may be discharged once his symptoms are controlled. At that point, we will establish outpatient hematology followup. MD NANCY Snyder/OZIEL /8:07 AM /8:34 AM
--- NOTE | 2016-10-03 09:23 | EKG ---
Date Performed: 10/02/2016 Time Performed: 16:18:38 PTAGE: 76 years EKG: ATRIAL FIBRILLATION WITH RAPID VENTRICULAR RESPONSE MINIMAL VOLTAGE CRITERIA FOR LVH, CONSI MANDEEP NORMAL VARIANT SEPTAL MYOCARDIAL INFARCTION MODERATE T-WAVE ABNORMALITY, CONSIDER LATERAL ISCHEMI A ABNORMAL ECG Compared to PREVIOUS TRACING the paced beats are no longer seen, rate is faster PREVIOUS TRACIN 11.56 DOCTOR: Kale Montoya Interpretating Date/Time 10/03/2016 09:20:02
[2016-10-03 09:26] LABS: BICARBONATE 23.9 MEQ/L (21.0-32.0); POTASSIUM 3.8 MEQ/L (3.5-5.1)
[2016-10-03 09:30] LABS: AUTOMATED NEUTROPHIL # 10.8 TH/MM3 (1.8-7.7); BASOPHIL # 0.1 TH/MM3 (0-0.2); BASOPHIL % 0.1 % (0.0-2.0); EOSINOPHIL # 0.2 TH/MM3 (0-0.4); EOSINOPHIL % 0.2 % (0.0-4.0); HEMATOCRIT 40.8 % (39.0-51.0); LYMPH % 82.9 % (9.0-44.0); LYMPHOCYTE # 61.8 TH/MM3 (1.0-4.8); MEAN CELL VOLUME 97.6 FL (80.0-100.0); MEAN CORPUSCULAR HEMOGLOBIN 31.7 PG (27.0-34.0); MEAN CORPUSCULAR HGB CONC 32.5 % (32.0-36.0); MONO % 2.3 % (0.0-8.0); NEUT % 14.5 % (16.0-70.0); PLATELET COUNT 128 TH/MM3 (150-450); RED BLOOD COUNT 4.18 MIL/MM3 (4.50-5.90); RED CELL DISTRIBUTION WIDTH 17.4 % (11.6-17.2); WHITE BLOOD COUNT 74.7 TH/MM3 (4.0-11.0)
[2016-10-03 09:39] LABS: HEMO FLAGS AUTO DIFF
[2016-10-03] MEDS: DOCUSATE SODIUM 50 MG/SENNA 8.6 MG TAB PO SCH ×2 (09:44→21:00)
[2016-10-03] MEDS: PRAVASTATIN SOD 40 MG TAB PO SCH (09:44)
[2016-10-03] MEDS: ASPIRIN EC 81 MG TABEC PO SCH (09:44)
[2016-10-03] MEDS: CARVEDILOL 6.25 MG TAB PO SCH (09:45)
[2016-10-03] MEDS: FERROUS SULFATE 325 MG (65 MG ELEMENTAL IRON) TAB PO SCH ×2 (09:45→21:11)
[2016-10-03] MEDS: FAMOTIDINE 20 MG TAB PO SCH ×2 (09:45→21:11)
[2016-10-03] MEDS: RIVAROXABAN 20 MG TAB PO SCH (09:45)
[2016-10-03] MEDS: FUROSEMIDE 40 MG/4 ML VIAL IV PUSH SCH ×2 (09:46→18:32)
[2016-10-03] MEDS: SODIUM CHLORIDE 0.9% FLUSH 10 ML FLUSH IV FLUSH SCH ×2 (09:46→21:12)
[2016-10-03] MEDS: SACUBITRIL/VALSARTAN 97 MG-103 MG TAB PO SCH (10:30)
--- NOTE | 2016-10-03 11:07 | MH ---
cc: TRAY HAWK MD DATE OF ADMISSION 10/02/2016 CHIEF COMPLAINT Shortness of breath HISTORY OF PRESENT ILLNESS This is a 76-year-old male with a past medical and surgical history significant for CLL chronic lymphocytic leukemia diagnosed in 2012, history of congestive heart failure, coronary artery disease, pacemaker placement, history of diverticulosis sleep apnea, COPD, history of pleural effusion, myocardial infarction in November 2015. He had a port placement on the right side of the chest for CLL, defibrillator and stent placement, defibrillator and three stent placement, history of thoracocentesis in the past. He is a former smoker and quit a long time ago. He came to the ER at [facility] complaining of shortness of breath going on for the last three weeks. He stated that he went to see his primary care doctor, was placed on antibiotics and steroids which helped, but first however, he was seen in a follow appointment 10 days ago and placed on additional antibiotic with no improvement of the symptom. He has some cough, but was unable to bring any phlegm out. He says he had a cold and did not change the C-PAP machine mouth causing him to re-infect himself. The patient reported increased dyspnea and exertional dyspnea as well as a mild orthopnea, so he had congestive heart failure. He is also complaining of intermittent chest pain more on the right side than similar to heart attack in the past. Patient reports he has CLL and has not seen an oncologist in almost a year secondary to his mcc. He does, however, have a history of pulmonary embolism taking Xarelto and baby aspirin. He denies any nausea or vomiting, any diarrhea, any headaches, any numbness, tingling, blood in the urine, any black stool, blood in the stool any abdominal pain or any other symptoms, other than that, nothing significant. PAST MEDICAL AND SURGICAL HISTORY As dictated above. SOCIAL HISTORY He denies smoking. He is ex-smoker, quit many years ago. Drinks alcohol socially. Denies any drug abuse. Lives at home with ex-. He is retired. ALLERGIES NO KNOWN DRUG ALLERGIES. MEDICATIONS Includes: 1. Ferrous sulfate 325 mg twice a day 2. Aspirin 81 mg p.o. daily 3. Xarelto 20 mg p.o. daily 4. Singulair 10 mg daily 5. Simvastatin 20 mg p.o. daily 6. Pepcid 20 mg twice a day 7. Lasix 20 mg p.o. two times a week 8. Entresto 97/103 mg daily 9. Coreg 6.25 mg p.o. daily REVIEW OF SYSTEMS Positive for shortness of breath and feeling weak and tired, all other review of systems are negative. PHYSICAL EXAMINATION This is a 76-year-old male sitting on the chair not in acute distress. VITAL SIGNS: Temperature 97.2, heart rate 95, respiration 20, blood pressure 125/76, O2 saturation 98% on three liters nasal cannula. HEENT: Normocephalic, atraumatic. EOMI. PERRL. Oral mucosa moist. NECK: Supple. No visible thyromegaly or neck mass. Trachea central. CARDIOVASCULAR: Regular rate and rhythm. Respirations, bilateral mild crackles. Decreased air entry at the bases. ABDOMEN: Soft and nontender. Bowel sounds audible. EXTREMITIES: No cyanosis or clubbing. Full range of motion of all extremities, +1 nonpitting edema bilateral lower extremity. Full range of motion of all extremities. NEUROLOGIC: Awake, alert and oriented x4. No focal deficits. SKIN: Warm and dry. PSYCH: The patient is cooperative. Mood and affect is normal. LABORATORY DATA Includes CBC is totally unremarkable except for WBC count 74.7. The patient has CLL. Hemoglobin 13.2, hematocrit 40.8, platelet count 128 low. Blood gas shows a pH of 98.6, bicarb 21 low, base excess 2.5 low, pH of 7.46 high, pCO2 29 low, pO2 70. BMP totally unremarkable except for BUN 24 high, glucose random 57 low. BNP 2405 high, 3143 high, troponin-I less than 0.0251 and 0.02 the next one. Creatinine kinase total was 22. PT 12.6, INR 1.1, APTT 26.6. Blood cultures x2 done are negative so far. Chest x-ray was done shows bilateral patches consistent with atelectasis or mild infiltrates. Cardiomegaly, probable small right pleural effusion. CT angio of the chest was done shows suboptimal contrast bolus, but no definitive pulmonary embolism, small to moderate bilateral pleural effusion, moderate emphysema, cardiomegaly with severe coronary calcification. ASSESSMENT/PLAN This is a 76-year male admitted and diagnosed with: 1. Shortness of breath most likely secondary to CHF exacerbation, most likely acute on chronic systolic heart failure. We will do strict I's and O's with fluid restriction to 1.5 liters a day, salt restriction to 2 grams a day. The patient started on Lasix 40 mg IV twice a day. Consulted cardiology for further recommendation. 2. Shortness of breath most likely from pneumonia too. The patient is on Rocephin one gram IV daily and Zithromax 500 mg IV daily. I will start DuoNeb nebulization every 6 hours p.r.n. shortness of breath, cough and wheezing. 3. History of hyperlipidemia. Continue home medications. 4. History of coronary artery disease continue home medications. 5. History of pulmonary room. Continue Xarelto 20 mg p.o. daily. 6. History of iron deficiency anemia. Continue ferrous sulfate 325 mg p.o. daily. 7. DVT prophylaxis, Xarelto 20 mg p.o. daily. 8. GI prophylaxis. Pepcid 20 mg twice a day. 9. History of her CLL hematology consulted. Further recommendation per hematology. We are going to manage this patient on a daily basis and make recommendation on a daily basis. Tray Hawk MD EA/OZIEL /9:57 AM /10:42 AM
[2016-10-03 12:27] LABS: BANDS 1 % (0-6); EOSINOPHILS 1 % (0-4); NEUTROPHIL # MANUAL DIFF 11.2 TH/MM3 (1.8-7.7); PLATELET ESTIMATE SMEAR LOW (NORMAL); PLATELET MORPHOLOGY NORMAL (NORMAL); POLYS (SEG NEUTROPHILS) 14 % (16-70); WBC DIFF SAMPLE 100
[2016-10-03 12:28] LABS: SCAN/DIFF FINAL DIFF MANUAL; SMUDGE CELLS PRESENT PRESENT
[2016-10-03] MEDS: RESP: ALBUTEROL 2.5 MG/IPRATROPIUM 0.5 MG NEB (SCH) NEB ×2 (13:17→19:06)
--- NOTE | 2016-10-03 16:37 | MB ---
cc: Ishaan SAM DATE OF CONSULTATION 10/03/16 HISTORY Mr. Guerra is a 76-year-old white male with a history of congestive heart failure, coronary artery disease status post at least two stents. Last was in November of last year at which time he had an AL, was treated in [place]. He is taken care of as an outpatient by a integrated marketing intern and a well puller and has had gradually increasing edema with shortness of breath. He presented to the emergency room yesterday with these symptoms and an initial chest x-ray revealed bibasilar infiltrates and effusions and a CTA revealed no evidence of pulmonary embolism but moderate bilateral pleural effusions with underlying emphysema and cardiomegaly. The patient was admitted, diuretics were begun and he is feeling a little better. Consult is in for cardiology as well. I am asked to see him for possible pneumonia. The patient denies significant congestion or sputum. He has been short of breath and has had a nonproductive cough. No chest pain. He has not noticed increasing edema, although on exam he does have it. He was a former smoker but quit smoking 30 or 40 years ago and has not been treated for emphysema specifically. PAST MEDICAL HISTORY Other than that noted above, he has CLL as well, that is followed by Dr. Chamorro until he retired. He is now rescheduled to see a new winder hand [facility]. Dr. Silvestre Arizmendi did see him here in the hospital and does not feel that his CLL is necessary to be treated at the moment and is probably not contributing to his symptoms. Additional past history, in addition to the coronary stents he has had a defibrillator placed by Dr. Tellez. SOCIAL HISTORY The patient is but lives at home with his ex-. 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 Former smoker but quit smoking in the early 70s and there is no alcohol abuse history. FAMILY HISTORY Positive for malignancy and heart disease. MEDICATIONS Reviewed in the EMR. ALLERGIES None known. PHYSICAL EXAMINATION GENERAL: Awake, alert, comfortable at rest. VITAL SIGNS: Afebrile, pulse is 106, respirations 18 nonlabored, blood pressure 120/76 and sat on 3 liters is 97%. HEENT: Sclerae anicteric. NECK: Neck veins are slightly distended. LUNGS: Breath sounds are diminished at both bases but no wheezes, rales or congestion. HEART: Heart rate is slightly irregular. No harsh murmur. ABDOMEN: Soft. EXTREMITIES: 1 to 2+ pretibial edema and no cyanosis or clubbing. LABORATORY DATA Initial labs, white count is 74,000 with predominately lymphocytes. Arterial blood gas on 2 liters is pO2 was 70, pH 7.46, pCO2 29, hemoglobin is 13. BNP is 3100, BUN is 24 with a creatinine of 1.24. DISCUSSION Mr. Guerra presents with what certainly clinically appears to be congestive heart failure with a very high BNP, bilateral effusions and increasing edema in his legs. There certainly has underlying emphysema but that does not appear to be the immediate problem and up to this point he has not been treated on an outpatient basis for COPD. I would suggest continuing diuretics. He has been started on antibiotics but I think there is probably minimal evidence that he has a significant infection, although, it is difficult to say because of the underlying fluid and chronic emphysema. He is on aerosol therapy which can be continued. I will not see him routinely as long as he is doing well. If further problems arise during this hospitalization please reconsult. He will have his routine follow up with his integrated marketing intern and well puller post discharge. RMD ALESSANDRO Wise/DAKSHA /4:05 PM /4:17 PM
[2016-10-03] MEDS: AZITHROMYCIN INJ 500 MG in SODIUM CHLOR 0.9% 250 ML INJ 250 ML IV SCH (18:41)
[2016-10-03] MEDS ORDERED: IPRA0.03 (18:49)
[2016-10-03] MEDS ORDERED: AZEL0.055 EACH NARE (18:49)
[2016-10-03] MEDS ORDERED: FLUT50SP EACH NARE (18:49)
[2016-10-03] MEDS: MONTELUKAST SODIUM 10 MG TAB PO SCH (21:11)
[2016-10-03] MEDS: cefTRIAXone INJ 1,000 MG in SODIUM CHLORIDE 0.9% INJ 100 ML IV SCH (21:12)
[2016-10-04] VITALS (7 sets, daily range): BP systolic 101–122; BP diastolic 62–68; PULSE 94–111; RESP 18–20; TEMP 97.1–98.2; O2SAT 95–98
[2016-10-04] MEDS: RESP: ALBUTEROL 2.5 MG/IPRATROPIUM 0.5 MG NEB (SCH) NEB ×3 (08:00→15:21)
[2016-10-04] MEDS: FERROUS SULFATE 325 MG (65 MG ELEMENTAL IRON) TAB PO SCH ×2 (08:16→20:22)
[2016-10-04] MEDS: SACUBITRIL/VALSARTAN 97 MG-103 MG TAB PO SCH (08:16)
[2016-10-04] MEDS: ASPIRIN EC 81 MG TABEC PO SCH (08:16)
[2016-10-04] MEDS: DOCUSATE SODIUM 50 MG/SENNA 8.6 MG TAB PO SCH ×2 (08:16→20:22)
[2016-10-04] MEDS: CARVEDILOL 6.25 MG TAB PO SCH (08:16)
[2016-10-04] MEDS: FAMOTIDINE 20 MG TAB PO SCH ×2 (08:17→20:22)
[2016-10-04] MEDS: RIVAROXABAN 20 MG TAB PO SCH (08:17)
[2016-10-04] MEDS: SODIUM CHLORIDE 0.9% FLUSH 10 ML FLUSH IV FLUSH SCH ×2 (08:17→20:23)
[2016-10-04] MEDS: PRAVASTATIN SOD 40 MG TAB PO SCH (08:17)
[2016-10-04] MEDS: FUROSEMIDE 40 MG/4 ML VIAL IV PUSH SCH ×2 (08:17→17:56)
[2016-10-04 12:27] LABS: AUTOMATED NEUTROPHIL # 7.6 TH/MM3 (1.8-7.7); BASOPHIL % 0.1 % (0.0-2.0); EOSINOPHIL # 0.3 TH/MM3 (0-0.4); EOSINOPHIL % 0.4 % (0.0-4.0); HEMATOCRIT 39.3 % (39.0-51.0); LYMPH % 85.1 % (9.0-44.0); MEAN CELL VOLUME 97.5 FL (80.0-100.0); MEAN CORPUSCULAR HEMOGLOBIN 31.9 PG (27.0-34.0); MEAN CORPUSCULAR HGB CONC 32.8 % (32.0-36.0); MONO % 2.1 % (0.0-8.0); NEUT % 12.3 % (16.0-70.0); PLATELET COUNT 108 TH/MM3 (150-450); RED BLOOD COUNT 4.03 MIL/MM3 (4.50-5.90); RED CELL DISTRIBUTION WIDTH 16.9 % (11.6-17.2); WHITE BLOOD COUNT 62.3 TH/MM3 (4.0-11.0)
[2016-10-04 12:31] LABS: HEMO FLAGS AUTO DIFF
[2016-10-04 12:47] LABS: ANION GAP 9 MEQ/L (5-15); AST (GOT) 11 U/L (15-37); BLOOD UREA NITROGEN 23 MG/DL (7-18); CHLORIDE 104 MEQ/L (98-107); GLOMERULAR FILTRATION RATE 63 ML/MIN (>89); POTASSIUM 3.3 MEQ/L (3.5-5.1); SODIUM (NA) 142 MEQ/L (136-145)
[2016-10-04 12:48] LABS: ALT (GPT) 42 U/L (12-78)
[2016-10-04 12:50] LABS: ALKALINE PHOSPHATASE 78 U/L (45-117); TOTAL BILIRUBIN ADULT 2.6 MG/DL (0.2-1.0)
--- NOTE | 2016-10-04 12:51 | HHI.PR ---
Subjective History of Present Illness Patient feel better SOB better no acute issue Pulmonary input noted. Review of Systems Constitutional Constitutional: Fatigue, Weakness Vitals/Results Intake & Output 10/03/16 10/03/16 10/04/16 14:59 22:59 06:59 Intake Total 480 ml 480 ml 120 ml Output Total 1700 ml 600 ml 800 ml Balance -1220 ml -120 ml -680 ml Intake Oral 480 ml 480 ml 120 ml Output Urine Total 1700 ml 600 ml 800 ml # Bowel Movements 1 0 0 Vital Signs Vital Signs Date Time Temp Pulse Resp B/P Pulse Ox O2 Delivery O2 Flow Rate FiO2 10/04/16 12:00 98.1 97 20 101/63 98 10/04/16 08:40 103 10/04/16 08:40 Room Air 10/04/16 08:00 98.2 100 20 122/65 95 10/04/16 05:12 97.1 94 18 113/62 97 10/03/16 20:14 97.8 50 16 159/74 97 10/03/16 20:00 Bi-Pap 10/03/16 19:06 96 21 10/03/16 16:00 Nasal Cannula 3.00 10/03/16 16:00 97.4 96 20 118/72 97 10/03/16 13:24 120 10/03/16 13:20 97 Nasal Cannula 3.00 CBC/BMP: 10/04/16 1153 10/03/16 0646 Lab Results Laboratory Tests Test 10/04/16 11:53 White Blood Count 62.3 TH/MM3 Red Blood Count 4.03 MIL/MM3 Hemoglobin 12.9 GM/DL Hematocrit 39.3 % Mean Corpuscular Volume 97.5 FL Mean Corpuscular Hemoglobin 31.9 PG Mean Corpuscular Hemoglobin 32.8 % Concent Red Cell Distribution Width 16.9 % Platelet Count 108 TH/MM3 Mean Platelet Volume 10.5 FL Neutrophils (%) (Auto) 12.3 % Lymphocytes (%) (Auto) 85.1 % Monocytes (%) (Auto) 2.1 % Eosinophils (%) (Auto) 0.4 % Basophils (%) (Auto) 0.1 % Neutrophils # (Auto) 7.6 TH/MM3 Lymphocytes # (Auto) 53.0 TH/MM3 Monocytes # (Auto) 1.3 TH/MM3 Eosinophils # (Auto) 0.3 TH/MM3 Basophils # (Auto) 0.0 TH/MM3 CBC Comment AUTO DIFF Physical Exam General General Appearance: Well Developed, Well Nourished, No Acute Distress, Comfortable Eyes Eye Exam: Sclera White, Extraocular Movement Intact Throat Throat Exam: Oral Mucosa Meckling & Moist, Oral Pharynx Normal Neck Neck Exam: Neck Supple, Trachea Midline Pulmonary Resp Exam: Clear Bilaterally, Breath Sounds Equal, No Distress Cardiology CV Exam: Regular, Normal Sinus Rhythm Gastrointestinal/Abdomen GI Exam: Soft, Non-Tender, Bowel Sounds Present Musculoskeletal MS Exam: Joints Intact Integumentary Skin Exam: Warm, Dry Neurologic Neuro Exam: Alert, Awake, Oriented, Speech Clear, Moving All Extremities, No Focal Deficits VTE Prophylaxis VTE Prophylaxis Meds: Heparin PUD Prophylasis PUD Prophylaxis: Protonix Assessment/Plan Assessment/Plan ASSESSMENT/PLAN This is a 76-year male admitted and diagnosed with: 1. Shortness of breath most likely secondary to CHF exacerbation, most likely acute on chronic systolic heart failure. We will do strict I's and O's with fluid restriction to 1.5 liters a day, salt restriction to 2 grams a day. The patient started on Lasix 40 mg IV twice a day. Consulted cardiology for further recommendation. 2. Shortness of breath most likely from pneumonia too. The patient is on Rocephin one gram IV daily and Zithromax 500 mg IV daily. on DuoNeb nebulization every 6 hours p.r.n. shortness of breath, cough and wheezing...Pulmonary input noted, 3. History of hyperlipidemia. Continue home medications. 4. History of coronary artery disease continue home medications. 5. History of pulmonary room. Continue Xarelto 20 mg p.o. daily. 6. History of iron deficiency anemia. Continue ferrous sulfate 325 mg p.o. daily. 7. DVT prophylaxis, Xarelto 20 mg p.o. daily. 8. GI prophylaxis. Pepcid 20 mg twice a day. 9. History of CLL oncology input noted. Further recommendation per oncology. 10. 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 Check CBC with diff CMP in AM. We are going to manage this patient on a daily basis and make recommendation on a daily basis. Discussed Condition with: Patient Tray Kathleen MD Oct 04, 2016 12:51
[2016-10-04 13:13] LABS: EOSINOPHILS 2 % (0-4); NEUTROPHIL # MANUAL DIFF 9.3 TH/MM3 (1.8-7.7); POLYS (SEG NEUTROPHILS) 15 % (16-70); WBC DIFF SAMPLE 100
[2016-10-04 13:14] LABS: PLATELET ESTIMATE SMEAR LOW (NORMAL); PLATELET MORPHOLOGY NORMAL (NORMAL); SCAN/DIFF FINAL DIFF MANUAL; SMUDGE CELLS PRESENT PRESENT
--- NOTE | 2016-10-04 15:25 | ECHRPT ---
Indication: heart failure CONCLUSIONS The left ventricular systolic function is severely reduced with an estimated ejection fraction less than 20%. Moderately dilated left ventricle. Wall thickness is normal. There is diffuse global hypokinesis with distinct regional wall motion abnormalities. The left atrial size is mildly dilated. Mitral annular calcification is present. Moderate mitral valve regurgitation. Mild aortic valve regurgitation. There is mild tricuspid valve regurgitation. The estimated pulmonary arterial pressure is 38 mmHg. A moderate left sided pleural effusion is noted. BP: / HR: Rhythm: MEASUREMENTS (Male / Female) Normal Values Technical Quality: 2D ECHO LV Diastolic Diameter PLAX 7.6 cm 4.2 - 5.9 / 3.9 - 5.3 cm LV Systolic Diameter PLAX 6.9 cm IVS Diastolic Thickness 0.7 cm 0.6 - 1.0 / 0.6 - 0.9 cm LVPW Diastolic Thickness 0.8 cm 0.6 - 1.0 / 0.6 - 0.9 cm LV Relative Wall Thickness 0.2 LA Systolic Diameter LX 4.8 cm 3.0 - 4.0 / 2.7 - 3.8 cm DOPPLER AV Peak Velocity 128.5 cm/s AV Peak Gradient 6.6 mmHg AI Peak Velocity 388.0 cm/s AI Peak Gradient 60.2 mmHg AI Pressure Half Time 573.0 ms LVOT Peak Velocity 79.5 cm/s LVOT Peak Gradient 2.5 mmHg Mitral E Point Velocity 90.3 cm/s TR Peak Velocity 263.0 cm/s TR Peak Gradient 27.7 mmHg FINDINGS LEFT VENTRICLE Moderately dilated left ventricle. Wall thickness is normal. There is diffuse global hypokinesis with distinct regional wall motion abnormalities. The left ventricular systolic function is severely reduced with an estimated ejection fraction less than 20%. RIGHT VENTRICLE The right ventricular systoilc function is mildly decreased. LEFT ATRIUM The left atrial size is mildly dilated. RIGHT ATRIUM The right atrial size is normal. ATRIAL SEPTUM Normal atrial septal thickness without atrial level shunting by limited color doppler interrogation. AORTA The aortic root and proximal ascending aorta are normal in size on limited imaging. MITRAL VALVE Mitral annular calcification is present. Moderate mitral valve regurgitation. AORTIC VALVE Aortic valve sclerosis is present. Mild aortic valve regurgitation. TRICUSPID VALVE There is mild tricuspid valve regurgitation. The estimated pulmonary arterial pressure is 38 mmHg. PULMONARY VALVE The pulmonary valve is not well visualized. VESSELS The inferior vena cava is normal in size. PERICARDIUM A moderate left sided pleural effusion is noted. Jayjay Jordan MD (Electronically Signed) Final Date:04 October 2016 15:24
[2016-10-04] MEDS: AZITHROMYCIN INJ 500 MG in SODIUM CHLOR 0.9% 250 ML INJ 250 ML IV SCH (17:56)
[2016-10-04] MEDS: MONTELUKAST SODIUM 10 MG TAB PO SCH (20:22)
[2016-10-04] MEDS: cefTRIAXone INJ 1,000 MG in SODIUM CHLORIDE 0.9% INJ 100 ML IV SCH (20:23)
[2016-10-05] VITALS (7 sets, daily range): BP systolic 97–106; BP diastolic 54–67; PULSE 76–118; RESP 16–20; TEMP 97.1–98.2; O2SAT 91–95
[2016-10-05] MEDS: FAMOTIDINE 20 MG TAB PO SCH ×2 (09:21→22:49)
[2016-10-05] MEDS: SACUBITRIL/VALSARTAN 97 MG-103 MG TAB PO SCH (09:21)
[2016-10-05] MEDS: CARVEDILOL 6.25 MG TAB PO SCH (09:21)
[2016-10-05] MEDS: DOCUSATE SODIUM 50 MG/SENNA 8.6 MG TAB PO SCH ×2 (09:21→22:49)
[2016-10-05] MEDS: RIVAROXABAN 20 MG TAB PO SCH (09:21)
[2016-10-05] MEDS: FUROSEMIDE 40 MG/4 ML VIAL IV PUSH SCH ×2 (09:21→18:05)
[2016-10-05] MEDS: PRAVASTATIN SOD 40 MG TAB PO SCH (09:21)
[2016-10-05] MEDS: FERROUS SULFATE 325 MG (65 MG ELEMENTAL IRON) TAB PO SCH ×2 (09:21→22:49)
[2016-10-05] MEDS: SODIUM CHLORIDE 0.9% FLUSH 10 ML FLUSH IV FLUSH SCH ×2 (09:21→22:50)
[2016-10-05] MEDS: ASPIRIN EC 81 MG TABEC PO SCH (09:21)
[2016-10-05] MEDS: RESP: ALBUTEROL 2.5 MG/IPRATROPIUM 0.5 MG NEB (SCH) NEB ×2 (13:35→20:00)
[2016-10-05] MEDS: AZITHROMYCIN INJ 500 MG in SODIUM CHLOR 0.9% 250 ML INJ 250 ML IV SCH (18:05)
[2016-10-05] MEDS: cefTRIAXone INJ 1,000 MG in SODIUM CHLORIDE 0.9% INJ 100 ML IV SCH (22:49)
[2016-10-05] MEDS: MONTELUKAST SODIUM 10 MG TAB PO SCH (22:49)
[2016-10-06] VITALS (8 sets, daily range): BP systolic 98–112; BP diastolic 55–75; PULSE 93–124; RESP 18–21; TEMP 94.7–97.4; O2SAT 92–95
[2016-10-06] MEDS: RESP: ALBUTEROL 2.5 MG/IPRATROPIUM 0.5 MG NEB (SCH) NEB ×3 (07:47→22:05)
[2016-10-06] MEDS: PRAVASTATIN SOD 40 MG TAB PO SCH (08:29)
[2016-10-06] MEDS: SACUBITRIL/VALSARTAN 97 MG-103 MG TAB PO SCH (08:29)
[2016-10-06] MEDS: FUROSEMIDE 40 MG/4 ML VIAL IV PUSH SCH ×2 (08:29→17:52)
[2016-10-06] MEDS: DOCUSATE SODIUM 50 MG/SENNA 8.6 MG TAB PO SCH ×2 (08:29→20:42)
[2016-10-06] MEDS: RIVAROXABAN 20 MG TAB PO SCH (08:30)
[2016-10-06] MEDS: FERROUS SULFATE 325 MG (65 MG ELEMENTAL IRON) TAB PO SCH ×2 (08:30→20:41)
[2016-10-06] MEDS: ASPIRIN EC 81 MG TABEC PO SCH (08:30)
[2016-10-06] MEDS: FAMOTIDINE 20 MG TAB PO SCH ×2 (08:30→20:41)
[2016-10-06] MEDS: CARVEDILOL 6.25 MG TAB PO SCH (08:30)
--- NOTE | 2016-10-06 08:48 | HHI.PR ---
Subjective History of Present Illness Patient seen on 10/05/16 feel better SOB better no acute issue Pulmonary input noted. Review of Systems Constitutional Constitutional: Fatigue, Weakness Vitals/Results Vital Signs Vital Signs Date Time Temp Pulse Resp B/P (MAP) Pulse Ox O2 Delivery O2 Flow Rate FiO2 10/06/16 07:50 114 10/06/16 04:00 97.3 106 21 106/55 (72) 93 10/06/16 00:00 97.2 124 21 109/57 (74) 93 10/05/16 20:00 87 10/05/16 20:00 97.1 118 20 97/55 (69) 95 10/05/16 20:00 Room Air 10/05/16 16:00 97.5 99 17 99/57 (71) 94 10/05/16 12:00 97.4 98 17 98/61 (73) 94 CBC/BMP: 10/04/16 1153 10/04/16 1153 Physical Exam General General Appearance: Well Developed, Well Nourished, No Acute Distress, Comfortable Eyes Eye Exam: Sclera White, Extraocular Movement Intact Throat Throat Exam: Oral Mucosa [place] & Moist, Oral Pharynx Normal Neck Neck Exam: Neck Supple, Trachea Midline Pulmonary Resp Exam: Clear Bilaterally, Breath Sounds Equal, No Distress Cardiology CV Exam: Regular, Normal Sinus Rhythm Gastrointestinal/Abdomen GI Exam: Soft, Non-Tender, Bowel Sounds Present Musculoskeletal MS Exam: Joints Intact Integumentary Skin Exam: Warm, Dry Neurologic Neuro Exam: Alert, Awake, Oriented, Speech Clear, Moving All Extremities, No Focal Deficits VTE Prophylaxis VTE Prophylaxis Meds: Heparin PUD Prophylasis PUD Prophylaxis: Protonix Assessment/Plan Assessment/Plan ASSESSMENT/PLAN This is a 76-year male admitted and diagnosed with: 1. Shortness of breath most likely secondary to CHF exacerbation, most likely acute on chronic systolic heart failure. We will do strict I's and O's with fluid restriction to 1.5 liters a day, salt restriction to 2 grams a day. The patient on Lasix 40 mg IV twice a day. Consulted cardiology for further recommendation. 2. Shortness of breath most likely from pneumonia too. The patient is on Rocephin one gram IV daily and Zithromax 500 mg IV daily. on DuoNeb nebulization every 6 hours p.r.n. shortness of breath, cough and wheezing...Pulmonary input noted, 3. History of hyperlipidemia. Continue home medications. 4. History of coronary artery disease continue home medications. 5. History of pulmonary room. Continue Xarelto 20 mg p.o. daily. 6. History of iron deficiency anemia. Continue ferrous sulfate 325 mg p.o. daily. 7. DVT prophylaxis, Xarelto 20 mg p.o. daily. 8. GI prophylaxis. Pepcid 20 mg twice a day. 9. History of CLL oncology input noted. Further recommendation per oncology. 10. 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 Check CBC with diff CMP in AM. We are going to manage this patient on a daily basis and make recommendation on a daily basis. Discussed Condition with: Patient Tray Kathleen MD Oct 06, 2016 08:48
--- NOTE | 2016-10-06 08:48 | HHI.PR ---
Subjective History of Present Illness Patient feel better SOB better no acute issue Pulmonary input noted. low potassium will replace and monitor. Review of Systems Constitutional Constitutional: Fatigue, Weakness Vitals/Results Vital Signs Vital Signs Date Time Temp Pulse Resp B/P (MAP) Pulse Ox O2 Delivery O2 Flow Rate FiO2 10/06/16 07:50 114 10/06/16 04:00 97.3 106 21 106/55 (72) 93 10/06/16 00:00 97.2 124 21 109/57 (74) 93 10/05/16 20:00 87 10/05/16 20:00 97.1 118 20 97/55 (69) 95 10/05/16 20:00 Room Air 10/05/16 16:00 97.5 99 17 99/57 (71) 94 10/05/16 12:00 97.4 98 17 98/61 (73) 94 CBC/BMP: 10/04/16 1153 10/04/16 1153 Physical Exam General General Appearance: Well Developed, Well Nourished, No Acute Distress, Comfortable Eyes Eye Exam: Sclera White, Extraocular Movement Intact Throat Throat Exam: Oral Mucosa [place] & Moist, Oral Pharynx Normal Neck Neck Exam: Neck Supple, Trachea Midline Pulmonary Resp Exam: Clear Bilaterally, Breath Sounds Equal, No Distress Cardiology CV Exam: Regular, Normal Sinus Rhythm Gastrointestinal/Abdomen GI Exam: Soft, Non-Tender, Bowel Sounds Present Musculoskeletal MS Exam: Joints Intact Integumentary Skin Exam: Warm, Dry Neurologic Neuro Exam: Alert, Awake, Oriented, Speech Clear, Moving All Extremities, No Focal Deficits VTE Prophylaxis VTE Prophylaxis Meds: Heparin PUD Prophylasis PUD Prophylaxis: Protonix Assessment/Plan Assessment/Plan ASSESSMENT/PLAN This is a 76-year male admitted and diagnosed with: 1. Shortness of breath most likely secondary to CHF exacerbation, most likely acute on chronic systolic heart failure. We will do strict I's and O's with fluid restriction to 1.5 liters a day, salt restriction to 2 grams a day. The patient started on Lasix 40 mg IV twice a day. Consulted cardiology for further recommendation. 2. Shortness of breath most likely from pneumonia too. The patient is on Rocephin one gram IV daily and Zithromax 500 mg IV daily. on DuoNeb nebulization every 6 hours p.r.n. shortness of breath, cough and wheezing...Pulmonary input noted, 3. History of hyperlipidemia. Continue home medications. 4. History of coronary artery disease continue home medications. 5. History of pulmonary room. Continue Xarelto 20 mg p.o. daily. 6. History of iron deficiency anemia. Continue ferrous sulfate 325 mg p.o. daily. 7. DVT prophylaxis, Xarelto 20 mg p.o. daily. 8. GI prophylaxis. Pepcid 20 mg twice a day. 9. History of CLL oncology input noted. Further recommendation per oncology. 10. 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 11. Hypokalemia will replace and monitor. Check CBC with diff CMP in AM. We are going to manage this patient on a daily basis and make recommendation on a daily basis. Discussed Condition with: Patient Tray Kathleen MD Oct 06, 2016 08:48
[2016-10-06] MEDS: SODIUM CHLORIDE 0.9% FLUSH 10 ML FLUSH IV FLUSH SCH ×2 (09:00→20:43)
[2016-10-06] MEDS ORDERED: POTASSIUM CHLORIDE 10 MEQ CONTROLLED RELEASE TAB PO ONE (17:30)
[2016-10-06] MEDS: AZITHROMYCIN INJ 500 MG in SODIUM CHLOR 0.9% 250 ML INJ 250 ML IV SCH (17:51)
[2016-10-06] MEDS: MONTELUKAST SODIUM 10 MG TAB PO SCH (20:42)
[2016-10-06] MEDS: cefTRIAXone INJ 1,000 MG in SODIUM CHLORIDE 0.9% INJ 100 ML IV SCH (20:43)
[2016-10-07] VITALS: BP 96/65; PULSE 96; RESP 20; TEMP 97.5; O2SAT 96
[2016-10-07 04:00] VITALS: BP_SYST 101; PULSE 96; RESP 20; TEMP 97.6; O2SAT 94
[2016-10-07 06:30] LABS: AUTOMATED NEUTROPHIL # 5.3 TH/MM3 (1.8-7.7); EOSINOPHIL # 0.5 TH/MM3 (0-0.4); EOSINOPHIL % 0.8 % (0.0-4.0); HEMATOCRIT 41.2 % (39.0-51.0); LYMPHOCYTE # 54.5 TH/MM3 (1.0-4.8); MEAN CORPUSCULAR HEMOGLOBIN 31.3 PG (27.0-34.0); MEAN CORPUSCULAR HGB CONC 32.2 % (32.0-36.0); MONO % 1.6 % (0.0-8.0); NEUT % 8.6 % (16.0-70.0); PLATELET COUNT 110 TH/MM3 (150-450); RED BLOOD COUNT 4.25 MIL/MM3 (4.50-5.90); RED CELL DISTRIBUTION WIDTH 16.9 % (11.6-17.2); WHITE BLOOD COUNT 61.2 TH/MM3 (4.0-11.0)
[2016-10-07 06:44] LABS: HEMO FLAGS AUTO DIFF
[2016-10-07 07:26] LABS: ALT (GPT) 28 U/L (12-78); ANION GAP 9 MEQ/L (5-15); AST (GOT) 15 U/L (15-37); BICARBONATE 24.9 MEQ/L (21.0-32.0); BLOOD UREA NITROGEN 18 MG/DL (7-18); CHLORIDE 105 MEQ/L (98-107); GLOMERULAR FILTRATION RATE 68 ML/MIN (>89); POTASSIUM 4.4 MEQ/L (3.5-5.1); SODIUM (NA) 139 MEQ/L (136-145)
[2016-10-07 07:30] LABS: ALKALINE PHOSPHATASE 78 U/L (45-117); TOTAL BILIRUBIN ADULT 1.3 MG/DL (0.2-1.0)
[2016-10-07 08:00] VITALS: BP 99/56; PULSE 103; RESP 18; TEMP 97.8; O2SAT 96
[2016-10-07] MEDS: RESP: ALBUTEROL 2.5 MG/IPRATROPIUM 0.5 MG NEB (SCH) NEB (08:00)
[2016-10-07] MEDS: SODIUM CHLORIDE 0.9% FLUSH 10 ML FLUSH IV FLUSH SCH (08:06)
[2016-10-07] MEDS: RIVAROXABAN 20 MG TAB PO SCH (08:28)
[2016-10-07] MEDS: CARVEDILOL 6.25 MG TAB PO SCH ×2 (08:28→08:31)
[2016-10-07] MEDS: ASPIRIN EC 81 MG TABEC PO SCH (08:28)
[2016-10-07] MEDS: DOCUSATE SODIUM 50 MG/SENNA 8.6 MG TAB PO SCH (08:28)
[2016-10-07] MEDS: SACUBITRIL/VALSARTAN 97 MG-103 MG TAB PO SCH (08:28)
[2016-10-07] MEDS: FAMOTIDINE 20 MG TAB PO SCH (08:28)
[2016-10-07] MEDS: PRAVASTATIN SOD 40 MG TAB PO SCH (08:28)
[2016-10-07] MEDS: FERROUS SULFATE 325 MG (65 MG ELEMENTAL IRON) TAB PO SCH (08:28)
[2016-10-07] MEDS: FUROSEMIDE 40 MG/4 ML VIAL IV PUSH SCH (08:29)
[2016-10-07 09:01] LABS: EOSINOPHILS 1 % (0-4); NEUTROPHIL # MANUAL DIFF 9.8 TH/MM3 (1.8-7.7); POLYS (SEG NEUTROPHILS) 16 % (16-70); WBC DIFF SAMPLE 100
[2016-10-07 09:02] LABS: OVALOCYTES 1+ (NORMAL); PLATELET ESTIMATE SMEAR LOW (NORMAL); PLATELET MORPHOLOGY NORMAL (NORMAL); SCAN/DIFF FINAL DIFF MANUAL; SMUDGE CELLS PRESENT PRESENT
--- NOTE | 2016-10-07 10:33 | HHI.PR ---
Subjective History of Present Illness Patient feel better SOB better no acute issue Pulmonary input noted. low potassium resolved. ok to discharge home today. Review of Systems Constitutional Constitutional: Fatigue, Weakness Vitals/Results Vital Signs Vital Signs Date Time Temp Pulse Resp B/P (MAP) Pulse Ox O2 Delivery O2 Flow Rate FiO2 10/07/16 08:00 97.8 103 18 99/56 (70) 96 10/07/16 07:59 Room Air 21 10/07/16 04:00 97.6 96 20 101/ 94 10/07/16 00:00 97.5 96 20 96/65 (75) 96 10/06/16 20:00 97.2 93 20 105/61 (76) 95 10/06/16 19:56 102 10/06/16 19:45 Room Air 10/06/16 16:00 94.7 96 18 107/75 (86) 94 10/06/16 12:00 94.7 103 18 98/58 (71) 95 CBC/BMP: 10/07/16 0424 10/07/16 0424 Lab Results Laboratory Tests Test 10/07/16 04:24 White Blood Count 61.2 TH/MM3 Red Blood Count 4.25 MIL/MM3 Hemoglobin 13.3 GM/DL Hematocrit 41.2 % Mean Corpuscular Volume 97.0 FL Mean Corpuscular Hemoglobin 31.3 PG Mean Corpuscular Hemoglobin Concent 32.2 % Red Cell Distribution Width 16.9 % Platelet Count 110 TH/MM3 Mean Platelet Volume 9.7 FL Neutrophils (%) (Auto) 8.6 % Lymphocytes (%) (Auto) 89.0 % Monocytes (%) (Auto) 1.6 % Eosinophils (%) (Auto) 0.8 % Basophils (%) (Auto) 0.0 % Neutrophils # (Auto) 5.3 TH/MM3 Lymphocytes # (Auto) 54.5 TH/MM3 Monocytes # (Auto) 1.0 TH/MM3 Eosinophils # (Auto) 0.5 TH/MM3 Basophils # (Auto) 0.0 TH/MM3 CBC Comment AUTO DIFF Differential Total Cells Counted 100 Neutrophils % (Manual) 16 % Lymphocytes % 82 % Monocytes % 1 % Eosinophils % 1 % Neutrophils # (Manual) 9.8 TH/MM3 Differential Comment FINAL DIFF MANUAL Smudge Cells PRESENT Platelet Estimate LOW Platelet Morphology Comment NORMAL Ovalocytes 1+ Blood Urea Nitrogen 18 MG/DL Creatinine 1.06 MG/DL Random Glucose 73 MG/DL Total Protein 6.0 GM/DL Albumin 3.1 GM/DL Calcium Level 8.9 MG/DL Alkaline Phosphatase 78 U/L Aspartate Amino Transf (AST/SGOT) 15 U/L Alanine Aminotransferase (ALT/SGPT) 28 U/L Total Bilirubin 1.3 MG/DL Sodium Level 139 MEQ/L Potassium Level 4.4 MEQ/L Chloride Level 105 MEQ/L Carbon Dioxide Level 24.9 MEQ/L Anion Gap 9 MEQ/L Estimat Glomerular Filtration Rate 68 ML/MIN Physical Exam General General Appearance: Well Developed, Well Nourished, No Acute Distress, Comfortable Eyes Eye Exam: Sclera White, Extraocular Movement Intact Throat Throat Exam: Oral Mucosa [place] & Moist, Oral Pharynx Normal Neck Neck Exam: Neck Supple, Trachea Midline Pulmonary Resp Exam: Clear Bilaterally, Breath Sounds Equal, No Distress Cardiology CV Exam: Regular, Normal Sinus Rhythm Gastrointestinal/Abdomen GI Exam: Soft, Non-Tender, Bowel Sounds Present Musculoskeletal MS Exam: Joints Intact Integumentary Skin Exam: Warm, Dry Neurologic Neuro Exam: Alert, Awake, Oriented, Speech Clear, Moving All Extremities, No Focal Deficits VTE Prophylaxis VTE Prophylaxis Meds: Heparin PUD Prophylasis PUD Prophylaxis: Protonix Assessment/Plan Assessment/Plan ASSESSMENT/PLAN This is a 76-year male admitted and diagnosed with: 1. Shortness of breath most likely secondary to CHF exacerbation, most likely acute on chronic systolic heart failure. We will do strict I's and O's with fluid restriction to 1.5 liters a day, salt restriction to 2 grams a day. The patient started on Lasix 40 mg IV twice a day. Consulted cardiology for further recommendation. 2. Shortness of breath most likely from pneumonia too. The patient is on Rocephin one gram IV daily and Zithromax 500 mg IV daily. on DuoNeb nebulization every 6 hours p.r.n. shortness of breath, cough and wheezing...Pulmonary input noted, 3. History of hyperlipidemia. Continue home medications. 4. History of coronary artery disease continue home medications. 5. History of pulmonary room. Continue Xarelto 20 mg p.o. daily. 6. History of iron deficiency anemia. Continue ferrous sulfate 325 mg p.o. daily. 7. DVT prophylaxis, Xarelto 20 mg p.o. daily. 8. GI prophylaxis. Pepcid 20 mg twice a day. 9. History of CLL oncology input noted. Further recommendation per oncology. 10. 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 11. Hypokalemia resolved. ok to discharge home today. f/u with pcp/ pulmonary/ cardiology / oncology 1 week. Discussed Condition with: Patient Tray Kathleen MD Oct 07, 2016 10:33
[2016-10-07 11:53] VITALS: BP 91/52; PULSE 94; RESP 18; TEMP 97.7; O2SAT 95
--- NOTE | 2016-10-07 12:42 | MB ---
cc: RICH PRASAD M.D. DATE OF CONSULTATION 10/07/2016 REASON FOR CONSULTATION Uncompensated heart failure, shortness of breath, COPD. HISTORY OF PRESENT ILLNESS Mr. Guerra is a 76-year-old gentleman with a history of congestive heart failure, cardiomyopathy, previous defibrillator implanted with an episode of a myocardial infarction. 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 [place] and traveled back to [facility]. A couple of weeks ago he began coughing. He saw Dr. Lo. Antibiotic was given. Subsequently, continue with the same shortness of breath. We went back to see him. Antibiotic was given again. On last night, his shortness of breath worsened. He decided to come to the emergency room. He was found in compensated heart failure. Also, bilateral pleural effusion. IV diuretic was given. Condition significantly improved. I was consulted for further evaluation and management. The chart was reviewed. The patient was evaluated. ALLERGIES None SOCIAL HISTORY Currently negative for smoking and drinking. FAMILY HISTORY Noncontributory to his current medical condition. MEDICATIONS aMryman is on: 1. Zithromax 2. Rocephin 3. Albuterol inhaler 4. Aspirin 5. Coreg 6. Famotidine 7. Ferrous sulfate 8. Lasix 9. Potassium 10. Xarelto 11. Entresto REVIEW OF SYSTEMS Currently, he refers feeling better. No chest pain, some minimal shortness of breath. No vomiting. No fever. PHYSICAL EXAM Alert, fully oriented, pleasant as usual. VITAL SIGNS: Blood pressure is 91/52, pulse 94, respiratory rate 18. LUNGS: Ventilated. No rale, no crackle. No wheezing. CARDIOVASCULAR: S1, S2, no gallop. No murmur. ABDOMEN: Soft. No mass. No bruit. EXTREMITIES: With no edema. Electrocardiogram on hospitalization indicated atrial fibrillation, poor R-wave progression, diffuse ST changes. LABORATORY DATA Hemoglobin 13.3, white blood cell is 61.2. The patient has CLL. Potassium 4.4, creatinine 1.06, INR is 1.1. ASSESSMENT AND RECOMMENDATIONS 1. Mr. Guerra's condition significantly improved. He is able to ambulate. 2. There is both lung expansion and ventilated. Last echo done reading by indicated an ejection fraction of around 20%. The gentleman already has a defibrillator in the left infraclavicular area with a port in the right infraclavicular area. At this point, my recommendation is continue with current management. He is on Entresto as well as beta francia. I am going to DC the IV Lasix. P.o. Lasix will be given. The patient can be discharged home and followed up as an outpatient. MD ERIC Borrero/OZIEL /12:16 PM /12:30 PM
[2016-10-07] MEDS ORDERED: FUROSEMIDE 40 MG TAB PO SCH (18:00)
--- NOTE | 2016-10-08 08:42 | MD ---
cc: TRAY HAWK MD ADMISSION DATE: 10/02/2016 DISCHARGE DATE: 10/07/2016 Okay to discharge the patient home. CONDITION AT THE TIME OF DISCHARGE Satisfactory ACTIVITY As tolerated. DIET Cardiac diet ALLERGIES NO KNOWN DRUG ALLERGIES. DISCHARGE MEDICATIONS Include: 1. Aspirin 81 mg p.o. daily 2. Azelastine nasal spray 0.15% two spray each nostril twice a day. 3. Coreg 6.25 mg daily 4. Famotidine 20 mg twice a day 5. Ferrous sulfate 25 mg p.o. b.i.d. 6. Fluticasone Nasal spray 850 mcg spray each nares twice a day. 7. Lasix 20 mg two times a week 8. Ipratropium nasal spray twice a day 9. Singulair 10 mg p.o. daily 10. Xarelto 20 mg p.o. daily 11. Entresto 97/103 mg one p.o. daily 12. Simvastatin 20 mg p.o. daily. FOLLOW UP The patient advised to follow up with PCP, cardiology, and pulmonary in one week. ADMISSION DIAGNOSIS 1. Shortness of breath secondary to CHF exacerbation, most likely acute on chronic systolic heart failure. The patient got strict I's and O's daily with fluid restriction to 1.5 liters a day, salt restriction 2 grams a day. The patient got IV Lasix and patient's condition improved. The patient has shortness of breath secondary to pneumonia. The patient was given Rocephin and Zithromax. The patient started on Ceftin 500 mg twice a day for seven more days and also Zithromax 500 mg p.o. daily for seven more days. 2. History of hyperlipidemia. 3. History of coronary disease. 4. History of pulmonary embolism. 5. History of iron deficiency anemia. 6. History of CLL oncology is seeing the patient. 7. Hypokalemia during hospital stay which resolved. 8. 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 HOSPITAL COURSE This is a 76-year-old male admitted with shortness of breath diagnosed with CHF exacerbation and pneumonia. The patient remained stable. No acute event happened. The patient discharged in satisfactory condition. The patient has a mild hypokalemia 3.3, potassium and it was resolved. The patient had a WBC count of 62.3 high, 61.2 high, and 74.4. The patient has CLL. The patient had a hemoglobin of 13.3. The patient's INR was 1.1. PT was 12.6, APTT was 26.6. The patient had a chest x-ray done that shows bibasilar patchiness consistent with atelectasis or mild infiltrate, cardiomegaly, probable small right pleural effusion. The patient had a CT angio chest done suboptimal contrast bolus but no definitive pulmonary embolism, small to moderate bilateral pleural effusion, moderate emphysema, cardiomegaly with severe chronic calcification. The patient had an echocardiogram done that shows the left ventricular systolic function is severely reduced with an estimated ejection fraction of 20%, moderately dilated left ventricle wall thickness is normal. There is a diffuse global hypokinesia with distinct regional wall motion abnormality. The left atrial size is mildly dilated. Moderate mitral valve regurgitation, mild aortic valve regurgitation. There is a mild tricuspid valve regurgitation. Pulmonary artery pressure is 38, a moderate left sided pleural effusion is noted. Please see the further details in the medical record. Tray Hawk MD EA/OZIEL /10:36 AM /8:35 AM
== END 2016-10-07 15:22 | disposition home or self-care (01) | DRG 291 ==
LOC: NEPC 14:55 → NEDA 19:47 → N04A 20:47
PROVIDERS: ADMIT Family Medicine; ATTEND Family Medicine
DX: I50.23 Acute on chronic systolic (congestive) heart failure (principal); J44.0 Chronic obstructive pulmonary disease with (acute) lower respiratory infection; J18.9 Pneumonia, unspecified organism; C91.10 Chronic lymphocytic leukemia of B-cell type not having achieved remission; E78.5 Hyperlipidemia, unspecified; I25.10 Atherosclerotic heart disease of native coronary artery without angina pectoris; Z95.5 Presence of coronary angioplasty implant and graft; Z95.810 Presence of automatic (implantable) cardiac defibrillator; I25.2 Old myocardial infarction; D50.9 Iron deficiency anemia, unspecified; G47.30 Sleep apnea, unspecified; Z86.711 Personal history of pulmonary embolism; Z79.02 Long term (current) use of antithrombotics/antiplatelets; Z79.82 Long term (current) use of aspirin; E87.6 Hypokalemia; I08.3 Combined rheumatic disorders of mitral, aortic and tricuspid valves; Z87.891 Personal history of nicotine dependence
CPT/HCPCS: 36600; 71010; 71275; 80048; 80053; 82550; 82805; 83735; 83880; 84484; 85007; 85027; 85610; 85730; 87040; 93005; 93306; 94640; 94664; 96365; 96368; 96375; J0456; J0696; J1940; J7050; Q9967

== ENCOUNTER 2016-10-31 16:16 | Observation (INO) | payer MEDICARE ==
[2016-10-31] VITALS (8 sets, daily range): BP systolic 97–123; BP diastolic 57–70; PULSE 64–105; RESP 17–21; TEMP 97.6–98.4; O2SAT 91–100
[~2016-10-31] VITALS: Ht 180.3 cm; Wt 83.0 kg
[~2016-10-31 16:16] MED LIST changes: -ACET300T2 PO; -ASPI1TAB69 PO; +ASPI81TA11 PO; +AZEL0.055 EACH NARE; -CEPH-460 PO; +FERR325T8 PO; +FLUT50SP EACH NARE; +IPRA0.03; -SOTA80 PO
[2016-10-31] MEDS ORDERED: SODIUM CHLORIDE 0.9% FLUSH 10 ML FLUSH IVF PRN (16:45)
[2016-10-31] MEDS ORDERED: FUROSEMIDE 40 MG/4 ML VIAL IVP ONE (16:45)
--- NOTE | 2016-10-31 16:51 | PD ---
HPI Chief Complaint: Respiratory Symptoms Time Seen by Provider: 16:40 Travel History International Travel<30 days: No Contact w/Intl Traveler<30days: No Traveled to known affect area: No History of Present Illness HPI This is a 76-year-old male with history of CHF, last echocardiogram in September revealing an ejection fraction of around 20%, presents for evaluation of dyspnea. The patient was admitted in September for dyspnea, CHF is in exacerbation , questionable pneumonia. He reports that he was discharged and since then he' s had persistent dyspnea. [facility] He reports dyspnea with exertion, increased fatigue. He denies chest pain, nausea or vomiting, abdominal pain, fevers or chills. He reports a chronic dry nonproductive cough which has not worsened. Takes Lasix 20 mg every Thursday and Thursday for diuresis. He denies any dietary indiscretions and in fact has been trying very hard to limit his sodium intake since discharge. Primary care physician is Dr. Lo. Field Clinical Engineer is Dr. Tellez. No other complaints at this time. PFSH Past Medical History Hx Anticoagulant Therapy: Yes (aspirin, Xarelto) Arthritis: No Asthma: No Atrial Fibrillation: Yes Autoimmune Disease: No Heart Rhythm Problems: Yes Cancer: Yes (PATIENT STATES DIAGNOSED WITH CLL 2012) Cardiovascular Problems: Yes (pacer, chf, cad) High Cholesterol: No Chemotherapy: No Chest Pain: Yes Congestive Heart Failure: Yes COPD: Yes Cerebrovascular Accident: No Coronary Artery Disease: Yes Diabetes: No Diminished Hearing: Yes Endocrine: No Gastrointestinal Disorders: Yes (diverticulosis) GERD: No Genitourinary: No Hepatitis: No Hiatal Hernia: No Immune Disorder: No Implanted Vascular Access Dvce: Yes Kidney Stones: No Musculoskeletal: No Neurologic: No Psychiatric: No Reproductive: No Respiratory: Yes (Pleural effusion , COPD, sleep apnea) Migraines: No Myocardial Infarction: Yes (NOV 2015) Radiation Therapy: No Renal Failure: No Seizures: No Sickle Cell Disease: No Sleep Apnea: No Thyroid Disease: No Ulcer: No Tetanus Vaccination: Unknown Past Surgical History Abdominal Surgery: No AICD: Yes Arteriovenous Shunt: No Body Medical Devices: POWER PORT TO RIGHT CHEST Cardiac Surgery: Yes (DEFIBRILATOR, STENTS X 3) Ear Surgery: No Endocrine Surgery: No Eye Surgery: No Genitourinary Surgery: No Gynecologic Surgery: No Insulin Pump: No Joint Replacement: No Oral Surgery: No Pacemaker: Yes Thoracic Surgery: No Other Surgery: Yes (Thoracenthesis ) Social History Alcohol Use: No Tobacco Use: No (FORMER) Substance Use: No Allergies-Medications (Allergen,Severity, Reaction): Coded Allergies: No Known Allergies (Unverified , 10/31/16) Reported Meds & Prescriptions Reported Meds & Active Scripts Active Reported Ipratropium Nasal 0.03% [place] BID PRN Azelastine Nasal [place] (Azelastine HCl) 0.15% [place] 2 [place] EACH NARE BID To each nostril. Fluticasone Nasal [place] 50 Mcg/Act Naspr 50 Mcg EACH NARE BID 50 mcg/spray Ferrous Sulfate 325 Mg (65 Mg Iron) Tablet 325 Mg PO BID Aspirin EC (Aspirin) 81 Mg Tabdr 81 Mg PO DAILY Xarelto (Rivaroxaban) 20 Mg Tab 20 Mg PO DAILY Singulair (Montelukast Sodium) 10 Mg Tab 10 Mg PO HS Simvastatin 20 Mg Tab 20 Mg PO DAILY Pepcid (Famotidine) 20 Mg Tab 20 Mg PO BID Lasix (Furosemide) 20 Mg Tab 20 Mg PO 2XWEEK Entresto (Sacubitril-Valsartan) 97-103 Mg Tab 1 Tab PO DAILY Coreg (Carvedilol) 6.25 Mg Tab 6.25 Mg PO DAILY Review of Systems Except as stated in HPI: all other systems reviewed are Neg Physical Exam Narrative GENERAL: Well-developed well-nourished male in no acute distress. SKIN: Warm and dry. HEAD: Atraumatic. Normocephalic. EYES: Pupils equal and round. No scleral icterus. No injection or drainage. ENT: No nasal bleeding or discharge. Mucous membranes pink and moist. NECK: Trachea midline. No JVD. CARDIOVASCULAR: Regular rate and rhythm. No murmur appreciated. RESPIRATORY: No accessory muscle use. Trace crackles at the bases. No wheezing. GASTROINTESTINAL: Abdomen soft, non-tender, nondistended. Hepatic and splenic margins not palpable. MUSCULOSKELETAL: No obvious deformities. Trace pitting edema to the lower extremities. NEUROLOGICAL: Awake and alert. No obvious cranial nerve deficits. Motor grossly within normal limits. Normal speech. PSYCHIATRIC: Appropriate mood and affect; insight and judgment normal. Data Data Last Documented VS Vital Signs Date Time Temp Pulse Resp B/P (MAP) Pulse Ox O2 Delivery O2 Flow Rate FiO2 10/31/16 16:46 98.3 93 21 123/70 (87) 96 Room Air Orders Orders Complete Blood Count With Diff (10/31/16 16:42) Basic Metabolic Panel (Bmp) (10/31/16 16:42) B-Type Natriuretic Peptide (10/31/16 16:42) Magnesium (Mg) (10/31/16 16:42) Ckmb (Isoenzyme) Profile (10/31/16 16:42) Troponin I (10/31/16 16:42) Iv Access Insert/Monitor (10/31/16 16:42) Electrocardiogram (10/31/16 16:42) Ecg Monitoring (10/31/16 16:42) Oximetry (10/31/16 16:42) Oxygen Administration (10/31/16 16:42) Chest, Single Ap (10/31/16 16:42) Sodium Chloride 0.9% Flush (Ns Flush) (10/31/16 16:45) Furosemide Inj (Lasix Inj) (10/31/16 16:45) Admit Order (Ed Use Only) (10/31/16 17:57) Labs Laboratory Tests Test 10/31/16 16:40 White Blood Count 21.1 TH/MM3 Red Blood Count 4.26 MIL/MM3 Hemoglobin 13.6 GM/DL Hematocrit 40.9 % Mean Corpuscular Volume 96.0 FL Mean Corpuscular Hemoglobin 32.0 PG Mean Corpuscular Hemoglobin Concent 33.4 % Red Cell Distribution Width 15.9 % Platelet Count 119 TH/MM3 Mean Platelet Volume 9.9 FL Neutrophils (%) (Auto) 19.0 % Lymphocytes (%) (Auto) 77.7 % Monocytes (%) (Auto) 2.4 % Eosinophils (%) (Auto) 0.8 % Basophils (%) (Auto) 0.1 % Neutrophils # (Auto) 4.0 TH/MM3 Lymphocytes # (Auto) 16.4 TH/MM3 Monocytes # (Auto) 0.5 TH/MM3 Eosinophils # (Auto) 0.2 TH/MM3 Basophils # (Auto) 0.0 TH/MM3 CBC Comment AUTO DIFF Blood Urea Nitrogen 11 MG/DL Creatinine 1.30 MG/DL Random Glucose 126 MG/DL Calcium Level 8.9 MG/DL Magnesium Level 2.1 MG/DL Sodium Level 144 MEQ/L Potassium Level 3.8 MEQ/L Chloride Level 111 MEQ/L Carbon Dioxide Level 23.7 MEQ/L Anion Gap 9 MEQ/L Estimat Glomerular Filtration Rate 54 ML/MIN Total Creatine Kinase 31 U/L Troponin I 0.02 NG/ML B-Type Natriuretic Peptide 2222 PG/ML MDM Medical Decision Making Medical Screen Exam Complete: Yes Emergency Medical Condition: Yes Medical Record Reviewed: Yes Interpretation(s) EKG atrial fibrillation, lateral T-wave inversions noted, essentially unchanged from previous EKG in September. Chest x-ray CONCLUSION: Cardiomegaly with mild congestive failure, improved from 10/02/16. Differential Diagnosis CHF exacerbation, pleural effusion, spontaneous pneumothorax, pneumonia, pulmonary embolism Narrative Course 76-year-old male with history of CHF presents with worsening dyspnea since his recent discharge. On examination he has mild crackles at the bases, trace pitting edema, oxygen saturation is approximately 93% on room air, slightly tachypneic. Plan is for basic lab work, chest x-ray, 12-lead EKG, the patient was placed on ECG monitor and pulse oximetry. 40 mg IV dose of Lasix will be administered. CBC reveals leukocytosis which is chronic secondary to his CML. Chest x-ray reveals cardiomegaly with mild congestive heart failure, improved from previous chest x-ray. At this point in time the plan is to admit the patient for observation for CHF exacerbation, the patient is agreeable with this. Admitted to Dr. Merida. Diagnosis Primary Impression: Acute on chronic diastolic congestive heart failure Admitting Information Admitting Physician Requests: Observation Yaw Green Oct 31, 2016 16:51
[2016-10-31 17:09] LABS: BASOPHIL % 0.1 % (0.0-2.0); EOSINOPHIL # 0.2 TH/MM3 (0-0.4); EOSINOPHIL % 0.8 % (0.0-4.0); HEMATOCRIT 40.9 % (39.0-51.0); LYMPH % 77.7 % (9.0-44.0); LYMPHOCYTE # 16.4 TH/MM3 (1.0-4.8); MEAN CORPUSCULAR HGB CONC 33.4 % (32.0-36.0); MONO % 2.4 % (0.0-8.0); PLATELET COUNT 119 TH/MM3 (150-450); RED BLOOD COUNT 4.26 MIL/MM3 (4.50-5.90); RED CELL DISTRIBUTION WIDTH 15.9 % (11.6-17.2); WHITE BLOOD COUNT 21.1 TH/MM3 (4.0-11.0)
[2016-10-31 17:20] LABS: HEMO FLAGS AUTO DIFF
--- NOTE | 2016-10-31 17:28 | RADRPT ---
EXAM DATE/TIME: 10/31/2016 17:14 [facility] COMPARISON: CHEST SINGLE AP, October 02, 2016, 16:15. INDICATIONS : Shortness of breath. MEDICAL HISTORY : Hypertension. Chronic obstructive pulmonary disease. Leukemia. CHF. SURGICAL HISTORY : Pacemaker. Port placement. ENCOUNTER: Initial ACUITY: 1 week PAIN SCORE: 0/10 LOCATION: Bilateral chest FINDINGS: Pacer and [id number] are noted. Heart is enlarged. Mild interstitial edema is present. There is no evident consolidation or pleural effusion. CONCLUSION: Cardiomegaly with mild congestive failure, improved from 10/02/16. Hunter Jay MD FACR on October 31, 2016 at 17:26 Board Certified Radiologist. This report was verified electronically.
[2016-10-31 17:49] LABS: BICARBONATE 23.7 MEQ/L (21.0-32.0); MAGNESIUM 2.1 MG/DL (1.5-2.5); POTASSIUM 3.8 MEQ/L (3.5-5.1)
[2016-10-31] MEDS ORDERED: NALOXONE HCL 0.4 MG/ML AMP IV PUSH PRN (18:15)
[2016-10-31] MEDS ORDERED: LACTULOSE SYRUP 20 GM/30 ML CUP PO PRN (18:15)
[2016-10-31] MEDS ORDERED: BISACODYL 10 MG SUPP RECTAL PRN (18:15)
[2016-10-31] MEDS ORDERED: MAGNESIUM HYDROXIDE SUSP 30 ML CUP PO PRN (18:15)
[2016-10-31] MEDS ORDERED: ACETAMINOPHEN 325 MG TAB PO PRN (18:15)
[2016-10-31] MEDS ORDERED: SODIUM CHLORIDE 0.9% FLUSH 10 ML FLUSH IV FLUSH PRN (18:15)
[2016-10-31] MEDS ORDERED: SENNOSIDES 8.6 MG TAB PO PRN (18:15)
[2016-10-31] MEDS ORDERED: ONDANSETRON HCL 4 MG/2 ML VIAL IVP PRN (18:15)
[2016-10-31 18:27] LABS: BANDS 2 % (0-6); EOSINOPHILS 1 % (0-4); NEUTROPHIL # MANUAL DIFF 4.9 TH/MM3 (1.8-7.7); PLATELET MORPHOLOGY NORMAL (NORMAL); POLYS (SEG NEUTROPHILS) 21 % (16-70); WBC DIFF SAMPLE 100
[2016-10-31 18:28] LABS: PLATELET ESTIMATE SMEAR LOW (NORMAL); SCAN/DIFF FINAL DIFF MANUAL
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
[2016-10-31] MEDS ORDERED: RESP: ALBUTEROL 2.5 MG/IPRATROPIUM 0.5 MG NEB (PRN) NEB (20:15)
[2016-10-31] MEDS: PRAVASTATIN SOD 40 MG TAB PO SCH (20:51)
[2016-10-31] MEDS: FAMOTIDINE 20 MG TAB PO SCH (20:51)
[2016-10-31] MEDS: FERROUS SULFATE 325 MG (65 MG ELEMENTAL IRON) TAB PO SCH (20:51)
[2016-10-31] MEDS: DOCUSATE SODIUM 50 MG/SENNA 8.6 MG TAB PO SCH (20:51)
[2016-10-31] MEDS: SODIUM CHLORIDE 0.9% FLUSH 10 ML FLUSH IV FLUSH SCH (20:52)
--- NOTE | 2016-10-31 20:55 | EKG ---
Date Performed: 10/31/2016 Time Performed: 16:54:06 PTAGE: 76 years EKG: Baseline artifact present ATRIAL FIBRILLATION MODERATE INTRAVENTRICULAR CONDUCTION DELAY MO DERATE VOLTAGE CRITERIA FOR LVH, CONSIDER NORMAL VARIANT Nonspecific ST and T wave abnormalities ABNO RMAL ECG No significant change from prior electrocardiogram. PREVIOUS TRACING : 10/02/2016 16.18 DOCTOR: Daryn Watt Interpretating Date/Time 10/31/2016 20:53:54
[2016-10-31] MEDS ORDERED: AZELASTINE NASAL SCH (21:00)
[2016-10-31] MEDS: FLUTICASONE PROPIONATE 50 MCG/ACT 16 GM NASAL SPRAY EACH NARE SCH (21:24)
[2016-10-31] MEDS: MONTELUKAST SODIUM 10 MG TAB PO SCH (21:25)
[2016-11-01] VITALS (7 sets, daily range): BP systolic 98–110; BP diastolic 55–72; PULSE 77–102; RESP 15–18; TEMP 98.1–98.6; O2SAT 95–99
[2016-11-01 04:56] LABS: BICARBONATE 24.5 MEQ/L (21.0-32.0); POTASSIUM 3.3 MEQ/L (3.5-5.1)
[2016-11-01] MEDS: FLUTICASONE PROPIONATE 50 MCG/ACT 16 GM NASAL SPRAY EACH NARE SCH ×2 (09:00→20:42)
--- NOTE | 2016-11-01 09:09 | EKG ---
Date Performed: 11/01/2016 Time Performed: 04:05:03 PTAGE: 76 years EKG: atrial fibrillation ELECTRONIC VENTRICULAR PACEMAKER Nonspecific ST and T wave abnormalitie s ABNORMAL RHYTHM ECG No significant change from prior electrocardiogram. PREVIOUS TRACING : 10/31/2016 22.22 DOCTOR: Daryn Watt Interpretating Date/Time 11/01/2016 09:07:12
[2016-11-01] MEDS: CARVEDILOL 6.25 MG TAB PO SCH (09:10)
[2016-11-01] MEDS: FAMOTIDINE 20 MG TAB PO SCH ×2 (09:10→20:38)
[2016-11-01] MEDS: RIVAROXABAN 20 MG TAB PO SCH (09:10)
[2016-11-01] MEDS: FERROUS SULFATE 325 MG (65 MG ELEMENTAL IRON) TAB PO SCH ×2 (09:10→20:38)
[2016-11-01] MEDS: ASPIRIN EC 81 MG TABEC PO SCH (09:11)
[2016-11-01] MEDS: DOCUSATE SODIUM 50 MG/SENNA 8.6 MG TAB PO SCH ×2 (09:11→20:38)
[2016-11-01] MEDS: SODIUM CHLORIDE 0.9% FLUSH 10 ML FLUSH IV FLUSH SCH ×2 (09:11→20:42)
[2016-11-01] MEDS: SACUBITRIL/VALSARTAN 97 MG-103 MG TAB PO SCH (09:11)
[2016-11-01] MEDS: FUROSEMIDE 20 MG/2 ML VIAL IV PUSH SCH ×2 (09:11→17:51)
--- NOTE | 2016-11-01 09:14 | EKG ---
Date Performed: 10/31/2016 Time Performed: 22:22:43 PTAGE: 76 years EKG: ATRIAL FIBRILLATION INTRAVENTRICULAR CONDUCTION DELAY Nonspecific ST and T wave abnormaliti es Ventricular pacemaker ABNORMAL ECG Compared to prior electrocardiogram, pacemaker present. PREVIOUS TRACING : 10/31/2016 16.54 DOCTOR: Daryn Watt Interpretating Date/Time 11/01/2016 09:14:36
--- NOTE | 2016-11-01 10:36 | HHI.PR ---
Subjective Remarks She is doing much better than yesterday Still somewhat short of breath on exertion No chest pain No diaphoresis Occasional cough No nausea vomiting No fever or chills Review of system for 10 system otherwise unremarkable Objective Objective Results - Vital Signs Date Time Temp Pulse Resp B/P (MAP) Pulse Ox O2 Delivery O2 Flow Rate FiO2 11/01/16 10:30 98.5 102 15 100/55 (70) 96 11/01/16 07:58 98.3 86 16 109/72 (84) 96 11/01/16 03:38 98.1 80 18 104/59 (74) 97 10/31/16 23:24 79 10/31/16 23:18 98.1 82 18 110/58 (75) 100 10/31/16 21:08 98.0 87 17 113/58 (76) 95 10/31/16 18:37 64 20 97/57 (70) 96 Nasal Cannula 4.00 10/31/16 16:46 98.3 93 21 123/70 (87) 96 Room Air 10/31/16 16:46 96 Room Air 10/31/16 16:39 93 21 96 Room Air 10/31/16 16:39 97.6 93 21 122/70 (87) 96 Room Air 10/31/16 16:32 97.6 93 21 122/70 (87) 96 10/31/16 16:17 98.4 105 20 108/61 (77) 91 I/O 10/31/16 10/31/16 10/31/16 11/01/16 11/01/16 11/01/16 07:00 15:00 23:00 07:00 15:00 23:00 Output Total 425 ml Balance -425 ml Output Urine Total 425 ml Result Diagram: 10/31/16 1640 11/01/16 0425 Imaging Last Impressions Chest X-Ray 10/31/16 1642 Signed Impressions: Service Date/Time: Monday, October 31, 2016 17:14 - CONCLUSION: Cardiomegaly with mild congestive failure, improved from 10/02/16. Hunter Jay MD FACR Other Results Laboratory Tests Test 10/31/16 16:40 10/31/16 22:22 11/01/16 04:25 White Blood Count 21.1 Red Blood Count 4.26 Hemoglobin 13.6 Hematocrit 40.9 Mean Corpuscular Volume 96.0 Mean Corpuscular Hemoglobin 32.0 Mean Corpuscular Hemoglobin Concent 33.4 Red Cell Distribution Width 15.9 Platelet Count 119 Mean Platelet Volume 9.9 Neutrophils (%) (Auto) 19.0 Lymphocytes (%) (Auto) 77.7 Monocytes (%) (Auto) 2.4 Eosinophils (%) (Auto) 0.8 Basophils (%) (Auto) 0.1 Neutrophils # (Auto) 4.0 Lymphocytes # (Auto) 16.4 Monocytes # (Auto) 0.5 Eosinophils # (Auto) 0.2 Basophils # (Auto) 0.0 CBC Comment AUTO DIFF Differential Total Cells Counted 100 Neutrophils % (Manual) 21 Band Neutrophils % 2 Lymphocytes % 72 Monocytes % 4 Eosinophils % 1 Neutrophils # (Manual) 4.9 Differential Comment FINAL DIFF MANUAL Platelet Estimate LOW Platelet Morphology Comment NORMAL Red Cell Morphology Comment NORMAL Blood Urea Nitrogen 11 15 Creatinine 1.30 1.10 Random Glucose 126 99 Calcium Level 8.9 8.4 Magnesium Level 2.1 Sodium Level 144 143 Potassium Level 3.8 3.3 Chloride Level 111 111 Carbon Dioxide Level 23.7 24.5 Anion Gap 9 8 Estimat Glomerular Filtration Rate 54 65 Total Creatine Kinase 31 30 25 Troponin I 0.02 0.03 0.03 B-Type Natriuretic Peptide 2222 Physical Exam Physical Exam GENERAL: This is a well-nourished, well-developed patient, in no apparent distress. SKIN: No rashes, ecchymoses or lesions. Cool and dry. HEAD: Atraumatic. Normocephalic. No temporal or scalp tenderness. EYES: Pupils equal round and reactive. Extraocular motions intact. No scleral icterus. No injection or drainage. ENT: Nose without bleeding, purulent drainage or septal hematoma. Throat without erythema, tonsillar hypertrophy or exudate. Uvula midline. Airway patent. NECK: Trachea midline. No JVD or lymphadenopathy. Supple, nontender, no meningeal signs. CARDIOVASCULAR: Irregularly, irregular. Soft murmur. Left CW noted with AICD. Port to right chest wall. RESPIRATORY: Bibasilar few Rales posterior lobes. GASTROINTESTINAL: Abdomen soft, non-tender, nondistended. No hepato-splenomegaly , or palpable masses. No guarding. MUSCULOSKELETAL: Extremities without clubbing, cyanosis. Pedal edema, trace bilat. 1+ pedal pulses. No joint tenderness, effusion, or edema noted. No calf tenderness. Negative Homans sign bilaterally. NEUROLOGICAL: Awake and alert. Cranial nerves II through XII intact. Motor and sensory grossly within normal limits. Five out of 5 muscle strength in all muscle groups. Normal speech. A/P Assessment and Plan (1) Acute on chronic diastolic congestive heart failure ICD Codes: I50.33 - Acute on chronic diastolic congestive heart failure Status: Acute (2) CLL (chronic lymphocytic leukemia) ICD Codes: C91.10 - Chronic lymphocytic leukemia of B-cell type not having achieved remission Status: Chronic (3) GERD (gastroesophageal reflux disease) ICD Codes: K21.9 - GERD (gastroesophageal reflux disease) Status: Chronic (4) History of cardiomyopathy ICD Codes: Z86.79 - History of cardiomyopathy Status: Chronic (5) Coronary artery disease ICD Codes: I25.10 - Coronary artery disease Status: Chronic (6) Benign hypertension ICD Codes: I10 - Benign hypertension Status: Chronic (7) COPD (chronic obstructive pulmonary disease) ICD Codes: J44.9 - COPD (chronic obstructive pulmonary disease) Status: Chronic (8) Leukocytosis ICD Codes: D72.829 - Leukocytosis Status: Chronic (9) Hyperlipidemia ICD Codes: E78.5 - Hyperlipidemia Status: Chronic Plan 76-year-old male with history of cardiomyopathy has AICD, CHF, CAD with prior stents. Presented with increased shortness of breath with activity and ankle swelling. Possibly secondary to increase fluid intake and dietary indiscretion. He is only on Lasix 2 times a week. Acute CHF exacerbation Cardiomyopathy has AICD -Continuous cardiac telemetry -Consult cardiology for evaluation -No need for echocardiogram, had a recent one September 2016. EF 20%. Patient has a AICD in place -Lasix 20 mg IV twice a day, will continue -luid restriction 1500 cc and heart healthy diet -Patient has been instructed about restricting salt and fluid intake. -Continue Entresto and Coreg CLL, WBC 21.1. Stable Thrombocytopenia, platelets 119 -Patient is instructed to follow-up with oncology, he verbalizes understanding. CAD and prior stents Hypertension -Continue home medication Sleep apnea uses CPAP at night -Continue CPAP History of A. fib -Continue with Xarelto COPD, stable -DuoNeb's as needed Home medications reviewed, initiated as indicated Continue with Xarelto for DVT prophylaxis Plan of care has been discussed with the patient and registered nurse. Further management of the patient will be dependent on the hospital course Magdy Merida MD Nov 01, 2016 10:36
[2016-11-01] MEDS ORDERED: POTASSIUM CHLORIDE 20 MEQ CONTROLLED RELEASE TAB PO ONE (11:00)
[2016-11-01] MEDS: SPIRONOLACTONE 25 MG TAB PO SCH (12:18)
--- NOTE | 2016-11-01 14:32 | MB ---
cc: RICH PRASAD M.D., RAJESH K. MD GOLDSMITH, ALAN S. M.D. DATE OF CONSULTATION: 11/01/2016. REASON FOR CONSULTATION: Congestive heart failure. HISTORY OF PRESENT ILLNESS: Outside in-hospital records were reviewed. The patient is a 76-year-old white male I am seeing for congestive heart failure. The patient has an ischemic cardiomyopathy. In 2015, he had a non-ST elevation MS and in 12/01 underwent catheterization showing mild right and circumflex disease with totally occluded proximal LAD. He had a bare-metal stent to the proximal LAD and angioplasty to the mid LAD. The patient also has a history of prior atrial fibrillation with ablation and recurrence. He has a Biotronik defibrillator. The patient was hospitalized last month for congestive heart failure. He noted that even when he went home he had mild dyspnea on exertion. This has slowly worsened over that period of time. He has sleep apnea and has no other cardiac symptomatology at all. He has received diuretic in the hospital and the shortness of breath is significantly improved. Echocardiogram 10/02 showed an ejection fraction under 20% with moderate mitral and mild aortic insufficiency. PAST MEDICAL HISTORY: 1. Prior hypertension. 2. Hyperlipidemia. 3. Cardiac as above. 4. Esophageal reflux. 5. Chronic lymphocytic leukemia. 6. Biotronik biventricular defibrillator. SOCIAL HISTORY: He is but lives with his ex-. He is a former smoker or drinker. FAMILY HISTORY: Unremarkable for coronary disease. ALLERGIES: None. MEDICATIONS: Medication list reviewed. REVIEW OF SYSTEMS: Review of systems remarkable for hearing and vision loss with occasional joint ache. EKGS: EKG shows atrial fibrillation with ventricular demand pacemaker and nonspecific ST-T wave changes. IMAGING STUDIES: Chest x-ray with cardiomegaly and mild congestive heart failure. LABORATORY WORK: CBC with a white count of 21.1 thousand, platelet count 119,000, potassium initially 3.8 and down to 3.3 which will need to be supplemented, creatinine 1.1. Troponins negative. BNP 2222. PHYSICAL EXAMINATION: VITAL SIGNS: Afebrile. The vital signs are stable. SKIN: There are no xanthelasma and oropharyngeal mucosa normal. CHEST: With decreased breath sounds but clear. CARDIOVASCULAR: JVD normal. There is an irregular rhythm. S1, S2. No definite murmurs or gallops. ABDOMEN: Benign. EXTREMITIES: No cyanosis, clubbing or edema. PULSES: Carotids without bruits. Radials trace to 1+. Femorals 1+ without bruits. Pedals trace. NEUROLOGIC: He was not ambulated. PROBLEMS: 1. Acute on chronic systolic congestive heart failure. 2. Chronic atrial fibrillation. 3. Coronary artery disease. 4. Hyperlipidemia. RECOMMENDATIONS: 1. Continue diuretics - he was only this two or three times a week and this needs to be daily. He also needs to be on potassium supplementation. He may benefit from low-dose Spironolactone, which I will add. 2. Low cholesterol / salt diet. 3. Follow up of anticoagulation and risk factor modification with Dr. Prasad and his primary care physician. 4. I have nothing more to add at this point in time. Hopefully he can be discharged later today or tomorrow. I will leave further management to the primary service. All questions were answered. MD MARTA Tavarez/GARY /10:48 AM /2:21 PM
[2016-11-01 17:15] LABS: AUTOMATED NEUTROPHIL # 4.3 TH/MM3 (1.8-7.7); BASOPHIL % 0.1 % (0.0-2.0); EOSINOPHIL # 0.2 TH/MM3 (0-0.4); EOSINOPHIL % 1.1 % (0.0-4.0); HEMATOCRIT 38.9 % (39.0-51.0); LYMPH % 72.2 % (9.0-44.0); LYMPHOCYTE # 13.5 TH/MM3 (1.0-4.8); MEAN CORPUSCULAR HEMOGLOBIN 31.4 PG (27.0-34.0); MEAN CORPUSCULAR HGB CONC 32.7 % (32.0-36.0); MONO % 3.7 % (0.0-8.0); NEUT % 22.9 % (16.0-70.0); PLATELET COUNT 106 TH/MM3 (150-450); RED BLOOD COUNT 4.05 MIL/MM3 (4.50-5.90); RED CELL DISTRIBUTION WIDTH 16.3 % (11.6-17.2); WHITE BLOOD COUNT 18.6 TH/MM3 (4.0-11.0)
[2016-11-01 17:18] LABS: HEMO FLAGS AUTO DIFF
[2016-11-01 17:46] LABS: BANDS 1 % (0-6); NEUTROPHIL # MANUAL DIFF 3.7 TH/MM3 (1.8-7.7); POLYS (SEG NEUTROPHILS) 19 % (16-70); WBC DIFF SAMPLE 100
[2016-11-01 17:47] LABS: ACANTHOCYTES 1+ (NORMAL); OVALOCYTES 1+ (NORMAL); PLATELET ESTIMATE SMEAR LOW (NORMAL); PLATELET MORPHOLOGY NORMAL (NORMAL); SCAN/DIFF FINAL DIFF MANUAL
[2016-11-01] MEDS: PRAVASTATIN SOD 40 MG TAB PO SCH (20:38)
[2016-11-01] MEDS: MONTELUKAST SODIUM 10 MG TAB PO SCH (20:38)
[2016-11-02 03:33] VITALS: BP 102/52; PULSE 71; RESP 18; TEMP 98.1; O2SAT 95
[2016-11-02] MEDS ORDERED: FURO1TAB62 PO (07:54)
[2016-11-02] MEDS ORDERED: SPIR25 PO (07:54)
--- NOTE | 2016-11-02 07:54 | HHI.DCPOC ---
Discharge Care Plan Diagnosis: (1) Acute on chronic diastolic congestive heart failure Your Health Problems Are: Chest Pain Cough Fluid/Lung Overload Shortness of Breath Goals to Promote Your Health * To prevent worsening of your condition and complications * To maintain your health at the optimal level Directions to Meet Your Goals Take your medications as prescribed Follow your dietary instruction Follow activity as directed Keep your appointments as scheduled Take your immunizations and boosters as scheduled If your symptoms worsen call your PCP, if no PCP go to Urgent Care Center or Emergency Room Smoking is Dangerous to Your Health. Avoid second hand smoke Call the 24-hour hour crisis hotline for domestic abuse at Nena Arauz. [facility] Nov 02, 2016 07:54
[2016-11-02 08:07] VITALS: PULSE 94
--- NOTE | 2016-11-02 08:22 | HHI.PR ---
Subjective Remarks no cp no sob no pedal edema eating well no acute changes overnight Objective Objective Results - Vital Signs Date Time Temp Pulse Resp B/P (MAP) Pulse Ox O2 Delivery O2 Flow Rate FiO2 11/02/16 08:07 94 11/02/16 03:33 98.1 71 18 102/52 (69) 95 11/01/16 23:23 98.1 82 18 110/58 (75) 97 11/01/16 19:30 98.4 82 18 104/55 (71) 99 11/01/16 16:19 86 98/58 (71) 95 11/01/16 14:57 98.6 77 18 103/58 (73) 96 11/01/16 10:30 98.5 102 15 100/55 (70) 96 I/O 11/01/16 11/01/16 11/01/16 11/02/16 11/02/16 11/02/16 07:00 15:00 23:00 07:00 15:00 23:00 Intake Total 250 ml Balance 250 ml Intake Oral 250 ml Result Diagram: 11/01/16 1540 11/01/16 0425 Imaging Last Impressions Chest X-Ray 10/31/16 1642 Signed Impressions: Service Date/Time: Monday, October 31, 2016 17:14 - CONCLUSION: Cardiomegaly with mild congestive failure, improved from 10/02/16. Hunter Jay MD FACR Other Results Laboratory Tests Test 11/01/16 15:40 White Blood Count 18.6 Red Blood Count 4.05 Hemoglobin 12.7 Hematocrit 38.9 Mean Corpuscular Volume 96.0 Mean Corpuscular Hemoglobin 31.4 Mean Corpuscular Hemoglobin Concent 32.7 Red Cell Distribution Width 16.3 Platelet Count 106 Mean Platelet Volume 9.5 Neutrophils (%) (Auto) 22.9 Lymphocytes (%) (Auto) 72.2 Monocytes (%) (Auto) 3.7 Eosinophils (%) (Auto) 1.1 Basophils (%) (Auto) 0.1 Neutrophils # (Auto) 4.3 Lymphocytes # (Auto) 13.5 Monocytes # (Auto) 0.7 Eosinophils # (Auto) 0.2 Basophils # (Auto) 0.0 CBC Comment AUTO DIFF Differential Total Cells Counted 100 Neutrophils % (Manual) 19 Band Neutrophils % 1 Lymphocytes % 75 Monocytes % 5 Neutrophils # (Manual) 3.7 Differential Comment FINAL DIFF MANUAL Platelet Estimate LOW Platelet Morphology Comment NORMAL Ovalocytes 1+ Acanthocytes 1+ ROS General: No: Fatigue, Weakness HEENT: No: Sore Throat, Dysphagia Cardiac: No: Chest Pain, Edema, Palpitations Pulmonary: No: Cough, SOB, Wheezing GI: No: Abdominal Pain, BM, Diarrhea, N/V /FOILING MACHINE OPERATOR: No: Dysuria, Urgency Neuro/MS: No: Lightheaded, Confusion Psych: No: Anxiety, Depression Skin: No: Itching, Rash Physical Exam Physical Exam GENERAL: This is a well-nourished, well-developed patient, in no apparent distress. SKIN: No rashes, ecchymoses or lesions. Cool and dry. HEAD: Atraumatic. Normocephalic. No temporal or scalp tenderness. EYES: Pupils equal round and reactive. Extraocular motions intact. No scleral icterus. No injection or drainage. ENT: Nose without bleeding, purulent drainage or septal hematoma. Throat without erythema, tonsillar hypertrophy or exudate. Uvula midline. Airway patent. NECK: Trachea midline. No JVD or lymphadenopathy. Supple, nontender, no meningeal signs. CARDIOVASCULAR: Irregularly, irregular. Soft murmur. Left CW noted with AICD. Port to right chest wall. RESPIRATORY: LCTA GASTROINTESTINAL: Abdomen soft, non-tender, nondistended. No hepato-splenomegaly , or palpable masses. No guarding. MUSCULOSKELETAL: Extremities without clubbing, cyanosis. No pedal/ankle edema. Bilat. 2+ pedal pulses. No joint tenderness, effusion, or edema noted. No calf tenderness. Negative Homans sign bilaterally. NEUROLOGICAL: Awake and alert. Cranial nerves II through XII intact. Motor and sensory grossly within normal limits. Five out of 5 muscle strength in all muscle groups. Normal speech. Urinary Catheter: No Vascular Central Line Catheter: No A/P Diagnosis: (1) Acute on chronic diastolic congestive heart failure ICD Codes: I50.33 - Acute on chronic diastolic congestive heart failure Status: Acute (2) CLL (chronic lymphocytic leukemia) ICD Codes: C91.10 - Chronic lymphocytic leukemia of B-cell type not having achieved remission Status: Chronic (3) GERD (gastroesophageal reflux disease) ICD Codes: K21.9 - GERD (gastroesophageal reflux disease) Status: Chronic (4) History of cardiomyopathy ICD Codes: Z86.79 - History of cardiomyopathy Status: Chronic (5) Coronary artery disease ICD Codes: I25.10 - Coronary artery disease Status: Chronic (6) Benign hypertension ICD Codes: I10 - Benign hypertension Status: Chronic (7) COPD (chronic obstructive pulmonary disease) ICD Codes: J44.9 - COPD (chronic obstructive pulmonary disease) Status: Chronic (8) Leukocytosis ICD Codes: D72.829 - Leukocytosis Status: Chronic (9) Hyperlipidemia ICD Codes: E78.5 - Hyperlipidemia Status: Chronic Assessment and Plan 76-year-old male with history of cardiomyopathy has AICD, CHF, CAD with prior stents. Presented with increased shortness of breath with activity and ankle swelling. Possibly secondary to increase fluid intake and dietary indiscretion. He is only on Lasix 2 times a week. Acute CHF exacerbation Cardiomyopathy has AICD -Continuous cardiac telemetry card input appreciated, recommends to change Lasix to daily at dc. Aldactone added. -No need for echocardiogram, had a recent one September 2016. EF 20%. Patient has a AICD in place -change to PO Lasix 20 mg po bid -fluid restriction 1500 cc and heart healthy diet -Patient has been instructed about restricting salt and fluid intake-verbalizes understanding -Continue Entresto and Coreg CLL, WBC 21.1. Stable Thrombocytopenia, platelets 119 -Patient is instructed to follow-up with oncology, he verbalizes understanding. CAD and prior stents Hypertension -Continue home medication Sleep apnea uses CPAP at night -Continue CPAP History of A. fib -Continue with Xarelto COPD, stable -DuoNeb's as needed Continue with Xarelto for DVT prophylaxis symptoms improved, ambulating without SOB, no cp diuresing well discharge home today f/u card 1 week f/u oncology Dr. Arizmendi f/u pcp diet-heart healthy, fluid restriction activity-as tolerated, enc. to pace activities D/W RN D/W Dr. Merida D/W pt This patient was seen by myself and Dr. Merida, this note is written on his behalf Discharge Planning 40 Problem Qualifiers (1) GERD (gastroesophageal reflux disease): Qualified Codes: K21.9 - Gastro-esophageal reflux disease without esophagitis (2) Coronary artery disease: Qualified Codes: I25.10 - Atherosclerotic heart disease of [place] coronary artery without angina pectoris (3) COPD (chronic obstructive pulmonary disease): Qualified Codes: J44.9 - Chronic obstructive pulmonary disease, unspecified (4) Hyperlipidemia: Qualified Codes: E78.5 - Hyperlipidemia, unspecified Nena Arauz Nov 02, 2016 08:22
[2016-11-02 08:28] VITALS: BP 106/60; PULSE 60; RESP 20; TEMP 97.9; O2SAT 95
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
[2016-11-02] MEDS ORDERED: FUROSEMIDE 20 MG TAB PO SCH (09:00)
[2016-11-02] MEDS: SPIRONOLACTONE 25 MG TAB PO SCH (09:07)
[2016-11-02] MEDS: CARVEDILOL 6.25 MG TAB PO SCH (09:08)
[2016-11-02] MEDS: RIVAROXABAN 20 MG TAB PO SCH (09:08)
[2016-11-02] MEDS: FAMOTIDINE 20 MG TAB PO SCH (09:08)
[2016-11-02] MEDS: FERROUS SULFATE 325 MG (65 MG ELEMENTAL IRON) TAB PO SCH (09:08)
[2016-11-02] MEDS: ASPIRIN EC 81 MG TABEC PO SCH (09:08)
[2016-11-02] MEDS: FLUTICASONE PROPIONATE 50 MCG/ACT 16 GM NASAL SPRAY EACH NARE SCH (09:09)
[2016-11-02] MEDS: DOCUSATE SODIUM 50 MG/SENNA 8.6 MG TAB PO SCH (09:09)
[2016-11-02] MEDS: SACUBITRIL/VALSARTAN 97 MG-103 MG TAB PO SCH (09:09)
[2016-11-02] MEDS: SODIUM CHLORIDE 0.9% FLUSH 10 ML FLUSH IV FLUSH SCH (09:10)
[2016-11-02 11:55] LABS: BICARBONATE 26.3 MEQ/L (21.0-32.0); POTASSIUM 3.4 MEQ/L (3.5-5.1)
[2016-11-02] MEDS ORDERED: POTA-163 PO (12:13)
[2016-11-02 12:15] VITALS: BP 99/60; PULSE 111; RESP 20; TEMP 97.9; O2SAT 96
[2016-11-02] MEDS ORDERED: POTASSIUM CHLORIDE 25 MEQ EFFERVESCENT TAB PO ONE (12:15)
== END 2016-11-02 15:11 | disposition home or self-care (01) ==
LOC: NEPC 16:16 → NEDA 17:58 → NEPHCDU 20:29
PROVIDERS: ADMIT Specialist; ATTEND Specialist
DX: I50.33 Acute on chronic diastolic (congestive) heart failure (principal); C91.10 Chronic lymphocytic leukemia of B-cell type not having achieved remission; I25.10 Atherosclerotic heart disease of native coronary artery without angina pectoris; I10 Essential (primary) hypertension; I25.5 Ischemic cardiomyopathy; I48.2 Chronic atrial fibrillation; E78.5 Hyperlipidemia, unspecified; K21.9 Gastro-esophageal reflux disease without esophagitis; Z95.810 Presence of automatic (implantable) cardiac defibrillator; Z95.5 Presence of coronary angioplasty implant and graft; Z87.891 Personal history of nicotine dependence; Z86.711 Personal history of pulmonary embolism
CPT/HCPCS: 71010; 80048; 82550; 83735; 83880; 84484; 85007; 85027; 93005; 96374; 96376; 99285; G0378; J1940

== ENCOUNTER 2018-01-11 08:54 | Inpatient (IN) ==
--- NOTE | 2018-01-11 09:47 | ED ---
HPI General Chief Complaint: Shortness of Breath/Dyspnea Stated Complaint: SOB Time Seen by Provider: 01/11/18 09:03 Source: patient Mode of arrival: EMS Limitations: no limitations History of Present Illness The patient is a 77-year-old male who presents to the emergency department via EMS for shortness of breath. The patient notes a 2-month history of shortness of breath, progressing, worse with exertion and associated with a dry nonproductive cough. The patient states he has a history of congestive heart failure with similar symptoms in the past. The patient does sleep with a CPAP machine, denies any current orthopnea, but does note significant shortness of breath that is worse with exertion. The patient states that his 2 months ago, he has been under a great deal of stress and has lost approximately 20-30 pounds. The patient saw his marker machine last week, Dr. Tellez, but no definitive plan for workup of possible CHF was instituted according to the patient. The patient denies any significant lower extremity edema. The patient denies any fever, chills, or sweats. The patient's primary physician is Dr. Manriquez. The patient also notes a history of leukemia, is followed by Dr. Watson, but is not under any current chemotherapy. MD Complaint: Reports shortness of breath Onset (ago): month(s) Severity: moderate Consistency/Duration: progressively worsening Relieving factors: nothing Exacerbating factors: exertion Known history of: Reports congestive heart failure Associated symptoms: Reports cough and chest congestion Treatment prior to arrival: Reports none Related Data Home oxygen amount: none Home Medications Medication Instructions Recorded Confirmed aspirin [Aspir-81] 81 mg PO DAILY 01/11/18 01/11/18 carvedilol [Coreg] 6.25 mg PO DAILY 01/11/18 01/11/18 digoxin 0.25 mg PO DAILY 01/11/18 01/11/18 famotidine 20 mg PO DAILY 01/11/18 01/11/18 ferrous sulfate 325 mg PO DAILY 01/11/18 01/11/18 furosemide [Lasix] 20 mg PO DAILY 01/11/18 01/11/18 montelukast 10 mg PO QPM 01/11/18 01/11/18 potassium chloride 20 meq PO DAILY 01/11/18 01/11/18 rivaroxaban [Xarelto] 20 mg PO QPM 01/11/18 01/11/18 sacubitril-valsartan [Entresto] 1 tab PO BID 01/11/18 01/11/18 simvastatin 20 mg PO QPM 01/11/18 01/11/18 Allergies Allergy/AdvReac Type Severity Reaction Status Date / Time No Known Allergies Allergy Verified 01/11/18 08:58 Review of Systems ROS: all other systems reviewed are negative [facility] Medical History Medical History CHF (congestive heart failure) (Acute) COPD (chronic obstructive pulmonary disease) (Acute) Hyperchloremia (Acute) Leukemia (Acute) Myocardial infarct (Acute) Social History Social History Substance History: No History of Abuse Second Hand Smoke Exposure: No Smoking Status: Never smoker How Often Do You Have a Drink Containing Alcohol: Monthly or less Recent Travel in [facility] within the Last 8 Weeks: No Recent Out of Country Travel within the Last 8 Weeks: No Immunization History Tetanus Immunization: <5 Years Exam Narrative Exam Narrative: GENERAL: Awake, alert, pleasant 77-year-old male who appears his stated age and is in mild respiratory distress. SKIN: Focused skin assessment warm/dry. HEAD: Atraumatic. Normocephalic. EYES: No injection or drainage. ENT: No nasal bleeding or discharge. Mucous membranes pink and moist. NECK: Trachea midline. No JVD. CARDIOVASCULAR: Regular rate and rhythm. No murmur appreciated. Heart rate in the 70s. Port in place right chest wall. Pacemaker in place left chest wall. RESPIRATORY: Mild tachypnea with a respiratory rate of 22. Few scattered rhonchi in the left base. GASTROINTESTINAL: Abdomen soft, non-tender, nondistended. MUSCULOSKELETAL: No obvious deformities. No clubbing. No cyanosis. No edema. Calves are soft bilaterally. NEUROLOGICAL: Awake and alert. No obvious cranial nerve deficits. Motor grossly within normal limits. Normal speech. PSYCHIATRIC: Appropriate mood and affect; insight and judgment normal. Course Initial Documented Vital Signs Temperature 97.8 F 01/11/18 09:06 Pulse Rate 74 01/11/18 09:06 Respiratory Rate 21 01/11/18 09:06 Blood Pressure 120/56 L 01/11/18 09:06 Pulse Oximetry 92 L 01/11/18 09:06 Last Documented Vital Signs Temperature 97.8 F 01/11/18 09:06 Pulse Rate 69 01/11/18 11:04 Respiratory Rate 21 01/11/18 11:04 Blood Pressure 114/54 L 01/11/18 11:04 Pulse Oximetry 94 L 01/11/18 11:04 Medical Decision Making MDM Narrative Medical decision making narrative: IV was established, labs are drawn and sent, and the patient was placed on cardiac telemetry monitoring and continuous pulse oximetry monitoring. EKG was ordered and interpreted. Chest x-ray was obtained. Chest x-ray does reveal mild pulmonary edema. BNP was greater than 1600. Digoxin level was elevated at 3.2. I reviewed the pain since last EMR, last echo was performed over one year ago, patient had EF of 20% at that time. Patient has persistent and progressive symptoms, therefore, will be admitted to the on-call medical service. I discussed the patient with Dr. Matthew Echavarria who agrees with admission. Medical Screen Exam Complete: Yes Emergency Medical Condition: Yes Differential Diagnosis Differential Diagnosis: Differential diagnosis includes congestive heart failure , pleural effusion, cardiomyopathy, acute coronary syndrome, STEMI, pneumonia, bronchitis, COPD, pulmonary embolism, deconditioning. Lab Data Result diagrams: 01/11/18 09:43 01/11/18 09:43 Lab Results 01/11/18 01/11/18 01/11/18 Range/Units 09:43 09:43 09:43 WBC 33.7 H (4.0-11.0) th/mm3 RBC 3.82 L (4.50-5.90) mil/mm3 Hgb 12.4 L (13.0-17.0) gm/dL Hct 37.2 L (39.0-51.0) % MCV 97.4 (80.0-100.0) fL MCH 32.4 (27.0-34.0) pg MCHC 33.3 (32.0-36.0) % RDW 16.4 (11.6-17.2) % Plt Count 115 L (150-450) th/mm3 MPV 10.5 (7.0-11.0) fL Prelim Diff (Auto) Slide review pending Neut % (Auto) 14.5 L (16.0-70.0) % Lymph % (Auto) 82.5 H (9.0-44.0) % [place] % (Auto) 2.0 (0.0-8.0) % Eos % (Auto) 0.9 (0.0-4.0) % Baso % (Auto) 0.1 (0.0-2.0) % Neut # (Auto) 4.9 (1.8-7.7) th/mm3 Lymph # (Auto) 27.8 H (1.0-4.8) th/mm3 [place] # (Auto) 0.7 (0.0-0.9) th/mm3 Eos # (Auto) 0.3 (0.0-0.4) th/mm3 Baso # (Auto) 0.0 (0.0-0.2) th/mm3 WBC Differential Manual diff final Seg Neuts % (Manual) 13 L (16-70) % Band Neuts % (Manual) 1 (0-6) % Lymphocytes % (Manual) 82 H (9-44) % Monocytes % (Manual) 4 (0-8) % Abs Neuts (Manual) 4.7 (1.8-7.7) th/mm3 Differential Comment . Smudge Cells Present H (None) Platelet Estimate Low L (Normal) Platelet Morphology Normal (Normal) Ovalocytes 1+ H (None) PT 12.9 H (9.8-11.6) sec INR 1.3 Ratio APTT 32.7 H (23.4-31.7) sec Sodium 141 (136-145) meq/L Potassium 3.6 (3.5-5.1) meq/L Chloride 107 (98-107) meq/L Carbon Dioxide 22.9 (21.0-32.0) meq/L Anion Gap 11 (5-15) meq/L BUN 20 H (7-18) mg/dL Creatinine 1.38 H (0.60-1.30) mg/dL Estimated GFR 50 L (>89) mL/min Random Glucose 106 (74-106) mg/dL Calcium 8.7 (8.5-10.1) mg/dL Magnesium 1.9 (1.5-2.5) mg/dL Total Bilirubin 2.0 H (0.2-1.0) mg/dL AST 16 (15-37) U/L ALT 29 (12-78) U/L Alkaline Phosphatase 114 (45-117) U/L Total Creatine Kinase 34 L (39-308) U/L Troponin I Less than 0.02 L (0.02-0.05) ng/mL B-Natriuretic Peptide (0-100) pg/mL Total Protein 6.8 (6.4-8.2) g/dL Albumin 3.4 (3.4-5.0) g/dL Digoxin (0.8-2.0) ng/mL 01/11/18 01/11/18 Range/Units 09:43 09:43 WBC (4.0-11.0) th/mm3 RBC (4.50-5.90) mil/mm3 Hgb (13.0-17.0) gm/dL Hct (39.0-51.0) % MCV (80.0-100.0) fL MCH (27.0-34.0) pg MCHC (32.0-36.0) % RDW (11.6-17.2) % Plt Count (150-450) th/mm3 MPV (7.0-11.0) fL Prelim Diff (Auto) Neut % (Auto) (16.0-70.0) % Lymph % (Auto) (9.0-44.0) % [place] % (Auto) (0.0-8.0) % Eos % (Auto) (0.0-4.0) % Baso % (Auto) (0.0-2.0) % Neut # (Auto) (1.8-7.7) th/mm3 Lymph # (Auto) (1.0-4.8) th/mm3 [place] # (Auto) (0.0-0.9) th/mm3 Eos # (Auto) (0.0-0.4) th/mm3 Baso # (Auto) (0.0-0.2) th/mm3 WBC Differential Seg Neuts % (Manual) (16-70) % Band Neuts % (Manual) (0-6) % Lymphocytes % (Manual) (9-44) % Monocytes % (Manual) (0-8) % Abs Neuts (Manual) (1.8-7.7) th/mm3 Differential Comment Smudge Cells (None) Platelet Estimate (Normal) Platelet Morphology (Normal) Ovalocytes (None) PT (9.8-11.6) sec INR Ratio APTT (23.4-31.7) sec Sodium (136-145) meq/L Potassium (3.5-5.1) meq/L Chloride (98-107) meq/L Carbon Dioxide (21.0-32.0) meq/L Anion Gap (5-15) meq/L BUN (7-18) mg/dL Creatinine (0.60-1.30) mg/dL Estimated GFR (>89) mL/min Random Glucose (74-106) mg/dL Calcium (8.5-10.1) mg/dL Magnesium (1.5-2.5) mg/dL Total Bilirubin (0.2-1.0) mg/dL AST (15-37) U/L ALT (12-78) U/L Alkaline Phosphatase (45-117) U/L Total Creatine Kinase (39-308) U/L Troponin I (0.02-0.05) ng/mL B-Natriuretic Peptide 1699 H (0-100) pg/mL Total Protein (6.4-8.2) g/dL Albumin (3.4-5.0) g/dL Digoxin 3.2 H* (0.8-2.0) ng/mL Imaging Data Radiologist's impression: Chest X-Ray 01/11/18 09:41 CONCLUSION: Intra-alveolar pulmonary edema. ECG Data EKG Prior to Arrival: No Attestation: I personally reviewed and interpreted this ECG as follows: Interpretation: EKG reveals electronic ventricular pacemaker. No further interpretation. Discharge Plan Physicians Team ED Provider: Ga Bojorquez Rxs /Orders / Referrals /Forms Prescriptions: No Action carvedilol [Coreg] 6.25 mg Tablet 6.25 mg PO DAILY RF: 0 digoxin 250 mcg Tablet 0.25 mg PO DAILY RF: 0 aspirin [Aspir-81] 81 mg Tablet,Delayed Release (Dr/Ec) 81 mg PO DAILY RF: 0 famotidine 20 mg Tablet 20 mg PO DAILY RF: 0 simvastatin 20 mg Tablet 20 mg PO QPM RF: 0 ferrous sulfate 325 mg (65 mg iron) Tablet 325 mg PO DAILY RF: 0 montelukast 10 mg Tablet 10 mg PO QPM RF: 0 furosemide [Lasix] 20 mg Tablet 20 mg PO DAILY RF: 0 rivaroxaban [Xarelto] 20 mg Tablet 20 mg PO QPM RF: 0 potassium chloride 20 mEq Tablet Extended Release 20 meq PO DAILY RF: 0 sacubitril-valsartan [Entresto] 97-103 mg Tablet 1 tab PO BID RF: 0 Discharge Interventions Interventions: Vital Signs Last Done: 01/11/18 11:04 Status ED Status: Admitted Observation Patient
[2018-01-11 10:03] LABS: Baso % (Auto) 0.1 % (0.0-2.0); Eos # (Auto) 0.3 th/mm3 (0.0-0.4); Eos % (Auto) 0.9 % (0.0-4.0); Hematocrit 37.2 % (39.0-51.0); Hemoglobin 12.4 gm/dL (13.0-17.0); Lymph # (Auto) 27.8 th/mm3 (1.0-4.8); Lymph % (Auto) 82.5 % (9.0-44.0); Mean Corpuscular HGB Conc 33.3 % (32.0-36.0); Mean Corpuscular Hemoglobin 32.4 pg (27.0-34.0); Mean Corpuscular Volume 97.4 fL (80.0-100.0); Mean Platelet Volume 10.5 fL (7.0-11.0); Mono # (Auto) 0.7 th/mm3 (0.0-0.9); Neut # (Auto) 4.9 th/mm3 (1.8-7.7); Neut % (Auto) 14.5 % (16.0-70.0); Platelet Count 115 th/mm3 (150-450); Red Blood Count 3.82 mil/mm3 (4.50-5.90); Red Cell Distribution Width 16.4 % (11.6-17.2); White Blood Count 33.7 th/mm3 (4.0-11.0)
--- NOTE | 2018-01-11 10:11 | XR ---
EXAM DATE: 01/11/2018 10:03 AM EST AGE/SEX: 77 years / Male INDICATIONS: Short of breath CLINICAL DATA: This is the patient's initial encounter. Patient reports that signs and symptoms have been present for 2 months and indicates a pain score of 0/10. MEDICAL/SURGICAL HISTORY: Chronic obstructive pulmonary disease. Congestive heart failure. Hy perparathyroidism. leukemia Pacemaker. infusaport [place] [facility] [place] . FINDINGS: A single AP view of the chest demonstrates mild cardiomegaly with pulmonary vascular engorgement. Bib asilar intra-alveolar opacities left more so than right. No effusions. Left-sided pacing device. Bony structures are intact. Right-sided Port-A-Cath. CONCLUSION: Intra-alveolar pulmonary edema. Electronically signed by: Tony Monroy MD 01/11/2018 10:10 AM EST
[2018-01-11 10:15] LABS: Activated Partial Thrombo Time 32.7 sec (23.4-31.7); INR 1.3 Ratio; Prothrombin Time 12.9 sec (9.8-11.6)
[2018-01-11 10:19] LABS: Albumin 3.4 g/dL (3.4-5.0); Anion Gap 11 meq/L (5-15); Aspartate Aminotransferase 16 U/L (15-37); Blood Urea Nitrogen 20 mg/dL (7-18); Calcium 8.7 mg/dL (8.5-10.1); Carbon Dioxide 22.9 meq/L (21.0-32.0); Chloride 107 meq/L (98-107); Glomerular Filtration Rate 50 mL/min (>89); Glucose,Random 106 mg/dL (74-106); Magnesium 1.9 mg/dL (1.5-2.5); Potassium 3.6 meq/L (3.5-5.1); Sodium 141 meq/L (136-145)
[2018-01-11 10:20] LABS: Alanine Aminotransferase 29 U/L (12-78)
[2018-01-11 10:24] LABS: Alkaline Phosphatase 114 U/L (45-117); Total Protein 6.8 g/dL (6.4-8.2)
[2018-01-11 10:27] LABS: Creatine Kinase 34 U/L (39-308)
[2018-01-11 10:44] LABS: Monocytes 4 % (0-8); Platelet Morphology Normal (Normal)
[2018-01-11 10:45] LABS: Ovalocytes 1+
[2018-01-11 10:47] LABS: Lymphocytes 82 % (9-44); Smudge Cells Present
[2018-01-11] MEDS ORDERED: Acetaminophen 325 MG Tablet PO PRN (12:40)
--- NOTE | 2018-01-11 13:42 | P.HPIM ---
History of Present Illness Primary Care Physician: Kale Manriquez History of Present Illness: Mr. Guerra is a 77-year-old male. He has a past history of congestive heart failure. His last ejection fraction in our system is from September 2016 and this showed a 20% ejection fraction. 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 Tellez. Over the past 2 months the patient has had progressive worsening of his respiratory status, his 2 months ago when he feels stress may have been contributory. Additionally, in the last 24 hours he has had an acute onset of dyspnea to the point where he did not think he could function so he came to the emergency department. Chest x-ray shows prominent pulmonary edema. This is likely responsible for his respiratory distress and hypoxia. On oxygen he is maintaining his saturations. No evidence of pleural effusions which have been a problem in the past. Patient denies any chest pain. No syncope. No other complaints today. He says he has been taking his diuretics daily which is 20 mg of Lasix p.o. daily. Thus far has been given 40 mg IV Lasix in the emergency department and this has resulted in good urine output. Other findings are an elevated digoxin level and a slight increase in his creatinine from baseline. BNP is approximately 1700 and chest x-ray shows prominent pulmonary edema, though physical exam does not strongly correlate. Patient reports his last hospitalized CHF exacerbation was about a year ago. Inpatient Certification: I certify that the inpatient services were ordered in accordance with Medicare regulations governing the order. This includes certification that hospital inpatient services are reasonable and necessary and in the case of services not specified as inpatient-only under 42 CFR 419.22(n), that they are appropriately provided as inpatient services in accordance to with the 2-midnight benchmark under 43 CFR 412.3(e) Estimated Total Length of Stay (Days): 3 Plans for Post Hospital Care: Home [facility] - History History Provided By: Patient - Medical History Medical History: Medical History (Last Updated 01/11/18 @ 09:06 by Tabitha Barfield) CHF (congestive heart failure) COPD (chronic obstructive pulmonary disease) Hyperchloremia Leukemia Myocardial infarct - Family History Family History: Family History (Last Updated 01/11/18 @ 13:35 by Matthew Echavarria MD) Other Osteoarthritis - Tobacco History Second Hand Smoke Exposure: No Smoking Status: Never smoker - Alcohol History How Often Do You Have a Drink Containing Alcohol: Monthly or less - Substance Use History Substance History: No History of Abuse - Travel History Recent Travel in the [place] Within the Last 8 Weeks: No Recent Travel Out of the Country Within the Last 8 Weeks: No - Immunization History Tetanus Immunization: <5 Years Medications and Allergies Active Medications: Active Medications Acetaminophen (Tylenol) 650 mg PO Q4H PRN PRN Reason: Temp > 100.4 Al Hydroxide/Mg Hydroxide (Milk Of Archana Liq) 30 ml PO Q12H PRN PRN Reason: Mild Constipation Aspirin (Ecotrin) 81 mg PO DAILY [facility] Carvedilol (Coreg) 6.25 mg PO DAILY [facility] Famotidine (Pepcid) 20 mg PO DAILY [facility] Ferrous Sulfate (Ferosul) 325 mg PO DAILY [facility] Furosemide (Lasix Inj) 40 mg IV.PUSH BID@0800,1600 [facility] Montelukast Sodium (Singulair) 10 mg PO DAILY@1800 [facility] Ondansetron HCl (Zofran Inj) 4 mg IV.PUSH Q6H PRN PRN Reason: NAUSEA OR VOMITING Potassium Chloride (K-Dur) 20 meq PO DAILY [facility] Pravastatin Sodium (Pravachol) 40 mg PO DAILY@1800 [facility] Rivaroxaban (Xarelto) 20 mg PO DAILY@1800 [facility] Sacubitril/Valsartan (Entresto 97 Mg/103 Mg) 1 tab PO BID [facility] Allergies Allergy/AdvReac Type Severity Reaction Status Date / Time No Known Allergies Allergy Verified 01/11/18 08:58 Home Medications Medication Instructions Recorded Confirmed Type aspirin [Aspir-81] 81 mg PO DAILY 01/11/18 01/11/18 History carvedilol [Coreg] 6.25 mg PO DAILY 01/11/18 01/11/18 History digoxin 0.25 mg PO DAILY 01/11/18 01/11/18 History famotidine 20 mg PO DAILY 01/11/18 01/11/18 History ferrous sulfate 325 mg PO DAILY 01/11/18 01/11/18 History furosemide [Lasix] 20 mg PO DAILY 01/11/18 01/11/18 History montelukast 10 mg PO QPM 01/11/18 01/11/18 History potassium chloride 20 meq PO DAILY 01/11/18 01/11/18 History rivaroxaban [Xarelto] 20 mg PO QPM 01/11/18 01/11/18 History sacubitril-valsartan [Entresto] 1 tab PO BID 01/11/18 01/11/18 History simvastatin 20 mg PO QPM 01/11/18 01/11/18 History Exam Vital signs: Vital Signs 01/11/18 09:06 01/11/18 09:44 01/11/18 11:04 Temperature 97.8 F Pulse Rate 74 69 Respiratory Rate 21 21 Blood Pressure 120/56 L 114/54 L Pulse Oximetry 92 L 97 94 L 01/11/18 13:29 Temperature Pulse Rate 69 Respiratory Rate 26 H Blood Pressure 138/62 Pulse Oximetry 95 Intake & Output 01/10/18 01/11/18 01/11/18 18:59 06:59 18:59 Output Total 1300 / 1300 Balance -1300 / -1300 Weight 74.389 kg Output: Urine 1300 / 1300 Narrative: GENERAL: NAD, A&Ox3 HEAD: Normocephalic. NECK: Supple, trachea midline. No lymphadenopathy. EYES: No scleral icterus. No injection or drainage. CARDIOVASCULAR: Regular rate and rhythm without murmurs, gallops, or rubs. RESPIRATORY: Breath sounds equal bilaterally. No accessory muscle use. No significant crackles at lungs (imaging does show evidence of severe pulmonary edema) GASTROINTESTINAL: Abdomen soft, non-tender, nondistended. MUSCULOSKELETAL: No cyanosis, or edema. No peripheral edema despite CHF exacerbation. SKIN: Warm and dry. NEURO: No focal neurological deficits. Results - Labs CBC & Chem 7: 01/11/18 09:43 01/11/18 09:43 Labs: Short CBC 01/11/18 Range/Units 09:43 WBC 33.7 H (4.0-11.0) th/mm3 Hgb 12.4 L (13.0-17.0) gm/dL Hct 37.2 L (39.0-51.0) % Plt Count 115 L (150-450) th/mm3 BMP 01/11/18 09:43 Sodium 141 Potassium 3.6 Chloride 107 Carbon Dioxide 22.9 BUN 20 H Creatinine 1.38 H Calcium 8.7 Cardiac Enzymes 01/11/18 Range/Units 09:43 Total Creatine Kinase 34 L (39-308) U/L Troponin I Less than 0.02 L (0.02-0.05) ng/mL Liver Function 01/11/18 Range/Units 09:43 Total Bilirubin 2.0 H (0.2-1.0) mg/dL AST 16 (15-37) U/L ALT 29 (12-78) U/L Alkaline Phosphatase 114 (45-117) U/L Albumin 3.4 (3.4-5.0) g/dL - Imaging Impressions Chest X-Ray 01/11/18 09:41 CONCLUSION: Intra-alveolar pulmonary edema. Caprini VTE Risk Assessment Caprini VTE Risk Assessment: Moderate/High Risk (score >= 2) Caprini Risk Assessment Model: Point Value = 1 Point Value = 2 Point Value = 3 Point Value = 5 Age 41-60 Minor surgery BMI > 25 kg/m2 Swollen legs Varicose veins or History of unexplained or recurrent spontaneous Oral contraceptives or hormone replacement Sepsis (< 1 month) Serious lung disease, including pneumonia (< 1 month) Abnormal pulmonary function Acute myocardial infarction Congestive heart failure (< 1 month) History of inflammatory bowel disease Medical patient at bed rest Age 61-74 Arthroscopic surgery Major open surgery (> 45 min) Laparoscopic surgery (> 45 min) Malignancy Confined to bed (> 72 hours) Immobilizing plaster cast Central venous access Age >= 75 History of VTE Family history of VTE Factor V Leiden Prothrombin [id number] Lupus anticoagulant Anticardiolipin antibodies Elevated serum homocysteine Heparin-induced thrombocytopenia Other congenital or acquired thrombophilia Stroke (< 1 month) Elective arthroplasty Hip, pelvis, or leg fracture Acute spinal cord injury (< 1 month) Prophylaxis Regimen: Total Risk Factor Score Risk Level Prophylaxis Regimen 0-1 Low Early ambulation 2 Moderate Order ONE of the following: *Sequential Compression Device (SCD) *Heparin 5000 units SQ BID 3-4 Higher Order ONE of the following medications: *Heparin 5000 units SQ TID *Enoxaparin/Lovenox 40 mg SQ daily (WT < 150 kg, CrCl > 30 mL/min) *Enoxaparin/Lovenox 30 mg SQ daily (WT < 150 kg, CrCl > 10-29 mL/min) *Enoxaparin/Lovenox 30 mg SQ BID (WT < 150 kg, CrCl > 30 mL/min) AND/OR *Sequential Compression Device (SCD) 5 or more Highest Order ONE of the following medications: *Heparin 5000 units SQ TID (Preferred with Epidurals) *Enoxaparin/Lovenox 40 mg SQ daily (WT < 150 kg, CrCl > 30 mL/min) *Enoxaparin/Lovenox 30 mg SQ daily (WT < 150 kg, CrCl > 10-29 mL/min) *Enoxaparin/Lovenox 30 mg SQ BID (WT < 150 kg, CrCl > 30 mL/min) AND *Sequential Compression Device (SCD) Assessment and Plan - Plan 77-year-old male admitted secondary to CHF exacerbation with baseline ejection fraction 20% CHF exacerbation Chronic systolic CHF Baseline ejection fraction approximately 20% based on echocardiogram from September 2016 Recent echocardiogram performed as an outpatient IV diuresis, Lasix 40 mg IV twice daily Monitor renal function Oxygen as needed Follow clinically for improvement Follow on telemetry Cardiology consulted Acute kidney injury This is likely mild Follow renal function during diuresis Etiology for slight elevation is suspected to be related to CHF exacerbation rather than dehydration or primary renal pathology Elevated digoxin level Hold digoxin Recheck digoxin level tomorrow morning COPD No acute exacerbation of these conditions Continue as needed albuterol Follow clinically Hyperlipidemia Continue present treatment Follow as an outpatient History of leukemia Follow clinically Follow as an outpatient History of myocardial infarction No change in baseline treatments No chest pain Follow on telemetry DVT prophylaxis Xarelto
[2018-01-11] MEDS ORDERED: Montelukast 10 MG Tablet PO SCH (18:00)
[2018-01-11] MEDS ORDERED: Rivaroxaban 20 MG Tablet PO SCH (18:00)
--- NOTE | 2018-01-12 06:37 | ECG ---
Date Performed: 01/11/2018 Time Performed: 09:13:27 PTAGE: 77 years EKG: ELECTRONIC VENTRICULAR PACEMAKER ABNORMAL RHYTHM ECG PREVIOUS TRACING : 11/01/2016 04.05 Compared to previous tracing, ventricular paced rhythm is new DOCTOR: Jose Dueñas Interpretating Date/Time 01/12/2018 06:35:52
[2018-01-12 07:12] LABS: Baso % (Auto) 0.1 % (0.0-2.0); Eos # (Auto) 0.4 th/mm3 (0.0-0.4); Eos % (Auto) 1.1 % (0.0-4.0); Hematocrit 36.9 % (39.0-51.0); Hemoglobin 12.4 gm/dL (13.0-17.0); Lymph # (Auto) 27.1 th/mm3 (1.0-4.8); Lymph % (Auto) 83.7 % (9.0-44.0); Mean Corpuscular HGB Conc 33.5 % (32.0-36.0); Mean Corpuscular Hemoglobin 32.4 pg (27.0-34.0); Mean Corpuscular Volume 96.8 fL (80.0-100.0); Mean Platelet Volume 10.2 fL (7.0-11.0); Mono # (Auto) 0.7 th/mm3 (0.0-0.9); Mono % (Auto) 2.1 % (0.0-8.0); Neut # (Auto) 4.2 th/mm3 (1.8-7.7); Platelet Count 101 th/mm3 (150-450); Red Blood Count 3.81 mil/mm3 (4.50-5.90); Red Cell Distribution Width 16.7 % (11.6-17.2); White Blood Count 32.4 th/mm3 (4.0-11.0)
[2018-01-12 07:39] LABS: Albumin 3.4 g/dL (3.4-5.0); Anion Gap 9 meq/L (5-15); Aspartate Aminotransferase 18 U/L (15-37); Blood Urea Nitrogen 21 mg/dL (7-18); Calcium 8.6 mg/dL (8.5-10.1); Carbon Dioxide 26.1 meq/L (21.0-32.0); Chloride 104 meq/L (98-107); Glomerular Filtration Rate 48 mL/min (>89); Glucose,Random 69 mg/dL (74-106); Potassium 3.5 meq/L (3.5-5.1); Sodium 139 meq/L (136-145)
[2018-01-12 07:57] LABS: Alanine Aminotransferase 22 U/L (12-78); Alkaline Phosphatase 107 U/L (45-117); Digoxin 1.7 ng/mL (0.8-2.0); Total Protein 6.3 g/dL (6.4-8.2)
[2018-01-12] MEDS ORDERED: Carvedilol 6.25 MG Tablet PO SCH (09:00)
[2018-01-12] MEDS ORDERED: Ferrous Sulfate 325 MG Tablet PO SCH (09:00)
[2018-01-12] MEDS ORDERED: Famotidine 20 MG Tablet PO SCH (09:00)
[2018-01-12 10:49] LABS: Eosinophils 1 % (0-4); Lymphocytes 82 % (9-44); Monocytes 6 % (0-8)
[2018-01-12 10:50] LABS: Platelet Morphology Normal (Normal); RBC Morphology Normal (Normal); Smudge Cells Present
--- NOTE | 2018-01-12 14:50 | P.PNIM ---
Subjective Interval history: The pt wanted to go home. He said he was breathing much better. He said that he needs refills of a few of his medications. Discussed with nursing. Physical Exam Vital signs: Vital Signs 01/11/18 16:00 01/11/18 20:00 01/12/18 00:00 Temperature 97.4 F L 96 F L 97.2 F L Pulse Rate 70 72 69 Respiratory Rate 18 18 20 Blood Pressure 139/64 124/51 L 119/57 L Pulse Oximetry 95 92 L 94 L 01/12/18 04:00 01/12/18 08:00 01/12/18 12:00 Temperature 97.2 F L 97.6 F 98.4 F Pulse Rate 73 70 70 Respiratory Rate 18 16 16 Blood Pressure 98/49 L 102/50 L Pulse Oximetry 93 L 91 L 95 Intake & Output 01/11/18 01/12/18 01/12/18 18:59 06:59 18:59 Intake Total 240 / 240 Output Total 1900 / 1900 Balance -1660 / -1660 Weight 78.6 kg 77.6 kg Intake: Oral 240 / 240 Output: Urine 1900 / 1900 Other: # Voids 2 Weight On Admission 78.6 kg Narrative: GENERAL: NAD. HEAD: Normocephalic. NECK: Supple, trachea midline. No lymphadenopathy. EYES: No scleral icterus. No injection or drainage. CARDIOVASCULAR: Regular rate and rhythm without murmurs, gallops, or rubs. RESPIRATORY: Breath sounds equal bilaterally. No accessory muscle use. No significant crackles at lungs. GASTROINTESTINAL: Abdomen soft, non-tender, nondistended. MUSCULOSKELETAL: No cyanosis, or edema. No peripheral edema despite CHF exacerbation. SKIN: Warm and dry. NEURO: No focal neurological deficits. Results - Labs CBC & Chem 7: 01/12/18 04:10 01/12/18 04:10 Laboratory Results - last 24 hr 01/12/18 01/12/18 04:10 04:10 WBC 32.4 H RBC 3.81 L Hgb 12.4 L Hct 36.9 L MCV 96.8 MCH 32.4 MCHC 33.5 RDW 16.7 Plt Count 101 L MPV 10.2 Prelim Diff (Auto) Slide review pending Neut % (Auto) 13.0 L Lymph % (Auto) 83.7 H [place] % (Auto) 2.1 Eos % (Auto) 1.1 Baso % (Auto) 0.1 Neut # (Auto) 4.2 Lymph # (Auto) 27.1 H [place] # (Auto) 0.7 Eos # (Auto) 0.4 Baso # (Auto) 0.0 WBC Differential Manual diff final Seg Neuts % (Manual) 11 L Lymphocytes % (Manual) 82 H Monocytes % (Manual) 6 Eosinophils % (Manual) 1 Abs Neuts (Manual) 3.6 Differential Comment . Smudge Cells Present H Platelet Estimate Low L Platelet Morphology Normal RBC Morphology Normal Sodium 139 Potassium 3.5 Chloride 104 Carbon Dioxide 26.1 Anion Gap 9 BUN 21 H Creatinine 1.42 H Estimated GFR 48 L Random Glucose 69 L Calcium 8.6 Total Bilirubin 2.3 H AST 18 ALT 22 Alkaline Phosphatase 107 Total Protein 6.3 L Albumin 3.4 Digoxin 1.7 Assessment and Plan - Plan 77-year-old male admitted secondary to CHF exacerbation with baseline ejection fraction 20% CHF exacerbation Chronic systolic CHF Baseline ejection fraction approximately 20% based on echocardiogram from September 2016 Recent echocardiogram performed as an outpatient Change Lasix to PO. Monitor renal function Oxygen as needed Follow clinically for improvement Follow on telemetry Cardiology consult pending. -walk test requested. Acute kidney injury This is likely mild Follow renal function during diuresis Etiology for slight elevation is suspected to be related to CHF exacerbation rather than dehydration or primary renal pathology Elevated digoxin level Hold digoxin Recheck digoxin level tomorrow morning. Improved. COPD No acute exacerbation of these conditions Continue as needed albuterol Follow clinically Hyperlipidemia Continue present treatment Follow as an outpatient History of leukemia Follow clinically Follow as an outpatient History of myocardial infarction No change in baseline treatments No chest pain Follow on telemetry DVT prophylaxis Xarelto Discharge Planning: Await cardiology eval. Anticipate d/c in AM.
[2018-01-12] MEDS ORDERED: Furosemide 40 MG Tablet PO SCH (16:00)
[2018-01-12 16:31] VITALS: BP 101/52; PULSE 70; RESP 20; TEMP 96.8; O2SAT 91
== END 2018-01-12 16:32 | disposition home or self-care (01) ==
LOC: NEPC 08:54 → NEDA 12:51 → N04 15:21
PROVIDERS: ADMIT Hospitalist; ATTEND Hospitalist

== ENCOUNTER 2018-02-04 18:08 | Inpatient (IN) ==
--- NOTE | 2018-02-04 19:09 | ED ---
HPI General Chief complaint: Eye Problems Stated complaint: eye pain Time Seen by Provider: 02/04/18 18:23 Source: patient Mode of arrival: ambulatory Limitations: no limitations History of Present Illness HPI narrative: 77yo M with PMH of leukemia, CHF, CAD here with c/o right eye swelling and pain that is worst today. Said started with numbness above right eyelid 4 days ago and then had rash from his front forehead and around right eye. Has been having blurry vision for about 4 days so went to [facility] 2 days ago and was prescribed ofloxacin eyedrop since he was told he had a scratch in his eye. Said the swelling around his right eye worsened today and he has pain with eye movement. Denies any fever, chest pain, sob, n/v, abdominal pain, focal weakness or numbness. Related Data Home Medications Medication Instructions Recorded Confirmed aspirin [Aspir-81] 81 mg PO DAILY 01/11/18 02/04/18 famotidine 20 mg PO DAILY 01/11/18 02/04/18 montelukast 10 mg PO QPM 01/11/18 02/04/18 potassium chloride 20 meq PO DAILY 01/11/18 02/04/18 Previous Rx's Medication Instructions Recorded carvedilol [Coreg] 6.25 mg PO DAILY 30 Days #30 tab 01/12/18 digoxin 0.25 mg PO Q48H 30 Days tab 01/12/18 furosemide [Lasix] 20 mg PO DAILY #30 tab 01/12/18 rivaroxaban [Xarelto] 20 mg PO QPM #30 tab 01/12/18 sacubitril-valsartan [Entresto] 1 tab PO BID 30 Days #60 tab 01/12/18 simvastatin 20 mg PO QPM #30 tab 01/12/18 Allergies Allergy/AdvReac Type Severity Reaction Status Date / Time No Known Allergies Allergy Verified 02/04/18 18:13 Review of Systems ROS: all other systems reviewed are negative [facility] Medical History Medical History Cataract (Acute) GERD (gastroesophageal reflux disease) (Acute) High cholesterol (Acute) Port-A-Cath in place (Acute) Sleep apnea (Acute) CHF (congestive heart failure) (Acute) COPD (chronic obstructive pulmonary disease) (Acute) Leukemia (Acute) Myocardial infarct (Acute) Family History Family History Other Osteoarthritis Social History Social History Substance History: No History of Abuse Second Hand Smoke Exposure: No Smoking Status: Former smoker Tobacco Type: Cigarettes How Often Do You Have a Drink Containing Alcohol: Never Recent Travel in [place] within the Last 8 Weeks: No Recent Out of Country Travel within the Last 8 Weeks: No Immunization History Tetanus Immunization: Unsure Exam Narrative Exam Narrative: GENERAL: 77yo M in mild distress. SKIN: +2 intact fluid filled vesicle right forehead. Most are unroofed in right V1, V2 distribution. HEAD: Atraumatic. Normocephalic. EYES: Right eye: +Periorbital swelling and ttp. +Erythema. Injected conjunctiva. Pupil 3mm reactive to light. Pain with eye movement. +Dendritic flurescene uptake medial right eye 3 o'clock in wood's lamp exam. +Erythema and warmth right forehead, up to right maxilla. ENT: No nasal bleeding or discharge. Mucous membranes pink and moist. NECK: Trachea midline. No JVD. CARDIOVASCULAR: Regular rate and rhythm. No murmur appreciated. RESPIRATORY: No accessory muscle use. Clear to auscultation. Breath sounds equal bilaterally. GASTROINTESTINAL: Abdomen soft, non-tender, nondistended. MUSCULOSKELETAL: No obvious deformities. No clubbing. No cyanosis. No edema. NEUROLOGICAL: Awake and alert. No obvious cranial nerve deficits. Motor grossly within normal limits. Normal speech. PSYCHIATRIC: Appropriate mood and affect; insight and judgment normal. Course Initial Documented Vital Signs Temperature 97.6 F 02/04/18 18:10 Pulse Rate 77 02/04/18 18:10 Respiratory Rate 20 02/04/18 18:10 Blood Pressure 126/59 L 02/04/18 18:10 Pulse Oximetry 97 02/04/18 18:10 Last Documented Vital Signs Temperature 99.0 F 02/05/18 12:00 Pulse Rate 78 02/05/18 12:00 Respiratory Rate 18 02/05/18 12:00 Blood Pressure 111/55 L 02/05/18 12:00 Pulse Oximetry 95 02/05/18 12:00 Medical Decision Making [facility] Narrative Medical decision making narrative: 77yo M with worsening swelling around right eye today. Pt has herpes zoster with involvement of his right eye. Even though it was been 4 days, there are still about 2 vesicles in right scalp that are fluid filled so will still cover with acyclvoir. Labs reviewed, WBC 23 but pt has leukemia. Thrombocytopenia but that is baseline. H/H normal. BMP unremarkable. 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 Pt given IV clindamycin. I spoke to radiologist Dr. Jay and there is no evidence of orbital cellulitis. However, I feel that given pt is immunocompromised and has extensive cellulitis and swelling that is worst today , will admit for IV antibiotics and have ophthalmology evaluate him tomorrow for herpes zoster ophthalmoticus. Discussed with Dr. Peterson and accepted to her service. Medical Screen Exam Complete: Yes Emergency Medical Condition: Yes Differential Diagnosis Differential Diagnosis: Herpes zoster ophthalmaticus vs. orbital cellulitis vs. periorbital cellulitis Lab Data Result diagrams: 02/05/18 08:00 02/05/18 08:00 Lab Results 02/04/18 02/04/18 02/05/18 Range/Units 18:50 18:50 08:00 WBC 23.0 H 16.8 H (4.0-11.0) th/mm3 RBC 4.08 L 3.71 L (4.50-5.90) mil/mm3 Hgb 13.1 12.2 L (13.0-17.0) gm/dL Hct 39.7 36.0 L (39.0-51.0) % MCV 97.4 97.1 (80.0-100.0) fL MCH 32.0 32.8 (27.0-34.0) pg MCHC 32.9 33.8 (32.0-36.0) % RDW 16.4 16.2 (11.6-17.2) % Plt Count 78 L 71 L (150-450) th/mm3 MPV 10.1 10.0 (7.0-11.0) fL Prelim Diff (Auto) Slide review pending Slide review pending Neut % (Auto) 11.1 L 12.2 L (16.0-70.0) % Lymph % (Auto) 86.5 H 85.7 H (9.0-44.0) % [place] % (Auto) 2.0 1.5 (0.0-8.0) % Eos % (Auto) 0.2 0.4 (0.0-4.0) % Baso % (Auto) 0.2 0.2 (0.0-2.0) % Neut # (Auto) 2.6 2.0 (1.8-7.7) th/mm3 Lymph # (Auto) 19.9 H 14.4 H (1.0-4.8) th/mm3 [place] # (Auto) 0.5 0.3 (0.0-0.9) th/mm3 Eos # (Auto) 0.0 0.1 (0.0-0.4) th/mm3 Baso # (Auto) 0.1 0.0 (0.0-0.2) th/mm3 WBC Differential Manual diff final Manual diff final Seg Neuts % (Manual) 12 L 7 L (16-70) % Band Neuts % (Manual) 1 (0-6) % Lymphocytes % (Manual) 84 H 93 H (9-44) % Monocytes % (Manual) 2 (0-8) % Eosinophils % (Manual) 1 (0-4) % Abs Neuts (Manual) 3.0 1.2 L (1.8-7.7) th/mm3 Differential Comment . . Smudge Cells Present H (None) Platelet Estimate Low L Low L (Normal) Platelet Morphology Normal Normal (Normal) RBC Morphology Normal Normal (Normal) Sodium 137 (136-145) meq/L Potassium 4.7 (3.5-5.1) meq/L Chloride 106 (98-107) meq/L Carbon Dioxide 26.2 (21.0-32.0) meq/L Anion Gap 5 (5-15) meq/L BUN 14 (7-18) mg/dL Creatinine 1.26 (0.60-1.30) mg/dL Estimated GFR 55 L (>89) mL/min Random Glucose 103 (74-106) mg/dL Calcium 8.6 (8.5-10.1) mg/dL Total Bilirubin (0.2-1.0) mg/dL AST (15-37) U/L ALT (12-78) U/L Alkaline Phosphatase (45-117) U/L Total Protein (6.4-8.2) g/dL Albumin (3.4-5.0) g/dL 02/05/18 Range/Units 08:00 WBC (4.0-11.0) th/mm3 RBC (4.50-5.90) mil/mm3 Hgb (13.0-17.0) gm/dL Hct (39.0-51.0) % MCV (80.0-100.0) fL MCH (27.0-34.0) pg MCHC (32.0-36.0) % RDW (11.6-17.2) % Plt Count (150-450) th/mm3 MPV (7.0-11.0) fL Prelim Diff (Auto) Neut % (Auto) (16.0-70.0) % Lymph % (Auto) (9.0-44.0) % [place] % (Auto) (0.0-8.0) % Eos % (Auto) (0.0-4.0) % Baso % (Auto) (0.0-2.0) % Neut # (Auto) (1.8-7.7) th/mm3 Lymph # (Auto) (1.0-4.8) th/mm3 [place] # (Auto) (0.0-0.9) th/mm3 Eos # (Auto) (0.0-0.4) th/mm3 Baso # (Auto) (0.0-0.2) th/mm3 WBC Differential Seg Neuts % (Manual) (16-70) % Band Neuts % (Manual) (0-6) % Lymphocytes % (Manual) (9-44) % Monocytes % (Manual) (0-8) % Eosinophils % (Manual) (0-4) % Abs Neuts (Manual) (1.8-7.7) th/mm3 Differential Comment Smudge Cells (None) Platelet Estimate (Normal) Platelet Morphology (Normal) RBC Morphology (Normal) Sodium 139 (136-145) meq/L Potassium 4.6 (3.5-5.1) meq/L Chloride 105 (98-107) meq/L Carbon Dioxide 25.6 (21.0-32.0) meq/L Anion Gap 8 (5-15) meq/L BUN 20 H (7-18) mg/dL Creatinine 1.43 H (0.60-1.30) mg/dL Estimated GFR 48 L (>89) mL/min Random Glucose 92 (74-106) mg/dL Calcium 8.5 (8.5-10.1) mg/dL Total Bilirubin 1.4 H (0.2-1.0) mg/dL AST 18 (15-37) U/L ALT 26 (12-78) U/L Alkaline Phosphatase 90 (45-117) U/L Total Protein 6.2 L (6.4-8.2) g/dL Albumin 3.3 L (3.4-5.0) g/dL Imaging Data Radiologist's impression: Face CT 02/04/18 18:45 CONCLUSION: 1. Negative for fracture 2. Extensive adenopathy suspicious for neoplastic process such as chronic leukemia. Discharge Plan Discharge Disposition Patient Disposition: ED Admit(ED Internal Use Only) Discharge Order Discharge Orders: ED Use Only Admit Order (Routine); Ordered 02/04/18 Ordered By: Kerry Luna Discharge Details Diagnosis: Periorbital cellulitis of right eye, Herpes zoster ophthalmicus, right eye Physicians Team ED Provider: Kerry Luna Primary Care Provider: UNKNOWN, Attending Provider: Rebecca Wong Other Providers: Cheri Rodriguez Status ED Status: Left Department Discharge Information Discharge Date/Time: 02/04/18 22:54
[2018-02-04 19:10] LABS: Baso # (Auto) 0.1 th/mm3 (0.0-0.2); Baso % (Auto) 0.2 % (0.0-2.0); Eos % (Auto) 0.2 % (0.0-4.0); Hematocrit 39.7 % (39.0-51.0); Hemoglobin 13.1 gm/dL (13.0-17.0); Lymph # (Auto) 19.9 th/mm3 (1.0-4.8); Lymph % (Auto) 86.5 % (9.0-44.0); Mean Corpuscular HGB Conc 32.9 % (32.0-36.0); Mean Corpuscular Volume 97.4 fL (80.0-100.0); Mean Platelet Volume 10.1 fL (7.0-11.0); Mono # (Auto) 0.5 th/mm3 (0.0-0.9); Neut # (Auto) 2.6 th/mm3 (1.8-7.7); Neut % (Auto) 11.1 % (16.0-70.0); Platelet Count 78 th/mm3 (150-450); Red Blood Count 4.08 mil/mm3 (4.50-5.90); Red Cell Distribution Width 16.4 % (11.6-17.2)
[2018-02-04] MEDS ORDERED: Acyclovir 800 MG Tablet PO ONE (19:10)
[2018-02-04] MEDS ORDERED: Ketorolac Inj 30 MG/ML (IVP) Vial IV.PUSH ONE (19:10)
[2018-02-04 19:33] LABS: Eosinophils 1 % (0-4); Monocytes 2 % (0-8)
[2018-02-04 19:34] LABS: Lymphocytes 84 % (9-44); Platelet Morphology Normal (Normal); RBC Morphology Normal (Normal)
[2018-02-04 19:39] LABS: Calcium 8.6 mg/dL (8.5-10.1); Carbon Dioxide 26.2 meq/L (21.0-32.0); Potassium 4.7 meq/L (3.5-5.1)
--- NOTE | 2018-02-04 20:11 | CT ---
EXAM DATE: 02/04/2018 8:03 PM EST AGE/SEX: 77 years / Male INDICATIONS: Right facial swelling and redness. CLINICAL DATA: This is the patient's initial encounter. Patient reports that signs and symptoms have been present for 4 - 6 days and indicates a pain score of 8/10. MEDICAL/SURGICAL HISTORY: Congestive heart failure. Chronic obstructive pulmonary disease. Le ukemia. None. RADIATION DOSE: 49.08 CTDI (mGy) COMPARISON: [facility] [place], CT PULMONARY ANGIOGRAM, 10/02/2016. . TECHNIQUE: Contiguous images in the axial and coronal planes were obtained using helical multirow de tector technique with 70 ml Omnipaque 350 (iohexol) nonionic water-soluble contrast as a single exam dose. Using automated exposure control and adjustment of the mA and/or kV according to patient size , radiation dose was kept as low as reasonably achievable to obtain optimal diagnostic quality images . DICOM format image data is available electronically for review and comparison. FINDINGS: Soft tissue swelling right frontal bone. Superior and inferior nasal spines are intact. Moderate nasa l septal deviation convex to the right with a bony spur. Sinuses are clear. Mandible is edentulous. M axilla is unremarkable. Soft tissue swelling about the face more so on the right extensive cervical adenopathy including the posterior triangle suspicious for neoplastic process such as chronic leukemia. CONCLUSION: 1. Negative for fracture 2. Extensive adenopathy suspicious for neoplastic process such as chronic leukemia. Electronically signed by: Hunter Jay MD Board Certified Radiologist 02/04/2018 8:10 PM EST
[2018-02-04] MEDS ORDERED: Acetaminophen 325 MG Tablet PO PRN (21:00)
[2018-02-04] MEDS ORDERED: Bisacodyl 10 MG Supp RECTAL PRN (21:00)
--- NOTE | 2018-02-04 21:21 | P.HPIM ---
History of Present Illness Primary Care Physician: UNKNOWN History of Present Illness: CT Face negative for fracture, extensive adenopathy suspicious for chronic leukemia.This is a 77-year-old male with a PMH of HTN, A. fib on Xarelto, Leukemia and CHF (EF Unknown) who presented to the ER with complaints of right eye pain and swelling x2-3 days. States he was seen by his [employer] for c/o blurry vision few days ago and was prescribed Ofloxacin gtts w/ no improvement. Denies fever or chills. Today w/ worsening swelling around eye in addition to rash along forehead and part of face. On arrival, BP 126/59, HR 77, O2 sat 97% on RA, Afebrile. WBC 23.0, previously 32.4 on 01/12/2018. CT Face negative for fracture, extensive adenopathy suspicious for chronic leukemia. On exam, pt noted to have herpetic rash w/ possible ocular involvement. S/p Clinda/Acyclovir in ER. Currently without complaints. Diagnosis (1) A-fib: Review of Systems PAST FAMILY HISTORY: Reviewed. No h/o DM or CAD Review of Systems: all other systems reviewed are negative [facility] Medical History Medical History Cataract (Acute) GERD (gastroesophageal reflux disease) (Acute) High cholesterol (Acute) Port-A-Cath in place (Acute) Sleep apnea (Acute) CHF (congestive heart failure) (Acute) COPD (chronic obstructive pulmonary disease) (Acute) Leukemia (Acute) Myocardial infarct (Acute) Family History Family History Other Osteoarthritis Social History Social History Substance History: No History of Abuse Second Hand Smoke Exposure: No Smoking Status: Former smoker Tobacco Type: Cigarettes How Often Do You Have a Drink Containing Alcohol: Never Recent Travel in [facility] within the Last 8 Weeks: No Recent Out of Country Travel within the Last 8 Weeks: No Immunization History Tetanus Immunization: Unsure Medications and Allergies Allergies Allergy/AdvReac Type Severity Reaction Status Date / Time No Known Allergies Allergy Verified 02/04/18 18:13 Home Medications Medication Instructions Recorded Confirmed Type aspirin [Aspir-81] 81 mg PO DAILY 01/11/18 02/04/18 History famotidine 20 mg PO DAILY 01/11/18 02/04/18 History montelukast 10 mg PO QPM 01/11/18 02/04/18 History potassium chloride 20 meq PO DAILY 01/11/18 02/04/18 History Active Medications: Active Medications Acetaminophen (Tylenol) 650 mg PO Q4H PRN PRN Reason: Temp > 100.4 Acyclovir (Zovirax) 800 mg PO 5 TIMES A DAY [place]H Al Hydroxide/Mg Hydroxide (Milk Of Magnesia Liq) 30 ml PO Q12H PRN PRN Reason: Mild Constipation Bisacodyl (Dulcolax Supp) 10 mg RECTAL DAILY PRN PRN Reason: SEVERE CONSITIPATION Clindamycin/Sodium Chloride (Cleocin 900 Mg/Ns Premix) 900 mg in 50 mls @ 100 mls/hr IV.SIG Q8H [place] Sodium Chloride (Ns Inj) 1,000 mls @ 100 mls/hr IV.CONT .Q10H [place] Lactulose (Lactulose Liq) 30 ml PO DAILY PRN PRN Reason: SEVERE CONSITIPATION Morphine Sulfate (Morphine Inj) 2 mg IV.PUSH Q4H PRN PRN Reason: PAIN SCALE 6 TO 10 Ondansetron HCl (Zofran Inj) 4 mg IV.PUSH Q6H PRN PRN Reason: NAUSEA OR VOMITING Senna/Docusate Sodium (Kamilah-Colace) 1 tab PO BID [facility] Sennosides (Senokot) 17.2 mg PO Q12H PRN PRN Reason: Moderate Constipation Sodium Chloride (Ns Flush) 2 ml IV.FLUSH BID [place] Sodium Chloride (Ns Flush) 2 ml IV.FLUSH PRN PRN PRN Reason: FLUSH AFTER USING IV ACCESS Physical Exam Vital signs: Last Vital Signs Temp 97.6 F 02/04/18 18:10 Pulse 77 02/04/18 18:10 Resp 20 02/04/18 18:10 BP 126/59 L 02/04/18 18:10 Pulse Ox 97 02/04/18 18:10 Intake & Output 02/02/18 02/03/18 02/04/18 02/05/18 06:59 06:59 06:59 06:59 Weight 78.471 kg Narrative: PE: GENERAL: Very pleasant elderly white male in no acute distress. SKIN: Focused skin assessment warm and dry. HEENT: PERRLA, EOMI. No scleral icterus or conjunctival pallor. No lid lag or facial droop. Right forehead vesicular rash, +right periorbital edema/erythema CARDIOVASCULAR: Regular rate and rhythm. No obvious murmurs to auscultation. No chest tenderness to palpation. RESPIRATORY: No obvious rhonchi or wheezing. Clear to auscultation. Breath sounds equal bilaterally. GASTROINTESTINAL: Abdomen soft, non-tender, nondistended. BS normal. MUSCULOSKELETAL: Extremities without clubbing, cyanosis, or edema. No obvious deformities. NEUROLOGICAL: Awake, alert and oriented x4. No focal neurologic deficits. Moving both upper and lower extremities spontaneously. PSYCHIATRIC: Appropriate mood and affect. Insight and judgment normal. Results Labs CBC & Chem 7: 02/04/18 18:50 02/04/18 18:[address] 02/04/18 18:45 CONCLUSION: 1. Negative for fracture 2. Extensive adenopathy suspicious for neoplastic process such as chronic leukemia. Caprini VTE Risk Assessment Caprini VTE Risk Assessment: No/Low Risk (score <= 1) Caprini Risk Assessment Model: Point Value = 1 Point Value = 2 Point Value = 3 Point Value = 5 Age 41-60 Minor surgery BMI > 25 kg/m2 Swollen legs Varicose veins or History of unexplained or recurrent spontaneous Oral contraceptives or hormone replacement Sepsis (< 1 month) Serious lung disease, including pneumonia (< 1 month) Abnormal pulmonary function Acute myocardial infarction Congestive heart failure (< 1 month) History of inflammatory bowel disease Medical patient at bed rest Age 61-74 Arthroscopic surgery Major open surgery (> 45 min) Laparoscopic surgery (> 45 min) Malignancy Confined to bed (> 72 hours) Immobilizing plaster cast Central venous access Age >= 75 History of VTE Family history of VTE Factor V Leiden Prothrombin [id number] Lupus anticoagulant Anticardiolipin antibodies Elevated serum homocysteine Heparin-induced thrombocytopenia Other congenital or acquired thrombophilia Stroke (< 1 month) Elective arthroplasty Hip, pelvis, or leg fracture Acute spinal cord injury (< 1 month) Prophylaxis Regimen: Total Risk Factor Score Risk Level Prophylaxis Regimen 0-1 Low Early ambulation 2 Moderate Order ONE of the following: *Sequential Compression Device (SCD) *Heparin 5000 units SQ BID 3-4 Higher Order ONE of the following medications: *Heparin 5000 units SQ TID *Enoxaparin/Lovenox 40 mg SQ daily (WT < 150 kg, CrCl > 30 mL/min) *Enoxaparin/Lovenox 30 mg SQ daily (WT < 150 kg, CrCl > 10-29 mL/min) *Enoxaparin/Lovenox 30 mg SQ BID (WT < 150 kg, CrCl > 30 mL/min) AND/OR *Sequential Compression Device (SCD) 5 or more Highest Order ONE of the following medications: *Heparin 5000 units SQ TID (Preferred with Epidurals) *Enoxaparin/Lovenox 40 mg SQ daily (WT < 150 kg, CrCl > 30 mL/min) *Enoxaparin/Lovenox 30 mg SQ daily (WT < 150 kg, CrCl > 10-29 mL/min) *Enoxaparin/Lovenox 30 mg SQ BID (WT < 150 kg, CrCl > 30 mL/min) AND *Sequential Compression Device (SCD) Assessment and Plan (1) A-fib: Code(s): I48.91 - Unspecified atrial fibrillation Status: Acute Plan A/P: 1. Periorbital Cellulitis: right facial/eye cellulitis, continue IV Clinda, CT Face w/ no acute abscess 2. Herpes Ophthalmicus: continue Acyclovir, Consult Ophthalmology for further evaluation/intervention. 3. A-fib: Chronic. Resume home Digoxin, Xarelto. 4. DVT Prophylaxis: Xarelto 5. Social work for d/c planning as needed. 6. Case discussed w/ ER physician at length, labs/records/imaging reviewed by me.
[2018-02-04] MEDS: Senna/Docusate Sodium 8.6/50 MG Tablet PO SCH (22:29)
[2018-02-05] MEDS: Sod Chloride 0.9% Inj 1,000 ML IV.CONT SCH ×3 (00:34→18:52)
[2018-02-05] MEDS: Digoxin 250 MCG Tablet PO SCH (03:53)
[2018-02-05] MEDS ORDERED: Clindamycin 900 mg/NS Premix 900 MG/50 ML PIGGYBACK IV.SIG SCH (06:00)
[2018-02-05 08:38] LABS: Baso % (Auto) 0.2 % (0.0-2.0); Eos # (Auto) 0.1 th/mm3 (0.0-0.4); Eos % (Auto) 0.4 % (0.0-4.0); Hemoglobin 12.2 gm/dL (13.0-17.0); Lymph # (Auto) 14.4 th/mm3 (1.0-4.8); Lymph % (Auto) 85.7 % (9.0-44.0); Mean Corpuscular HGB Conc 33.8 % (32.0-36.0); Mean Corpuscular Hemoglobin 32.8 pg (27.0-34.0); Mean Corpuscular Volume 97.1 fL (80.0-100.0); Mono # (Auto) 0.3 th/mm3 (0.0-0.9); Mono % (Auto) 1.5 % (0.0-8.0); Neut % (Auto) 12.2 % (16.0-70.0); Platelet Count 71 th/mm3 (150-450); Red Blood Count 3.71 mil/mm3 (4.50-5.90); Red Cell Distribution Width 16.2 % (11.6-17.2); White Blood Count 16.8 th/mm3 (4.0-11.0)
[2018-02-05 09:10] LABS: Albumin 3.3 g/dL (3.4-5.0); Anion Gap 8 meq/L (5-15); Aspartate Aminotransferase 18 U/L (15-37); Blood Urea Nitrogen 20 mg/dL (7-18); Calcium 8.5 mg/dL (8.5-10.1); Carbon Dioxide 25.6 meq/L (21.0-32.0); Chloride 105 meq/L (98-107); Glomerular Filtration Rate 48 mL/min (>89); Glucose,Random 92 mg/dL (74-106); Potassium 4.6 meq/L (3.5-5.1); Sodium 139 meq/L (136-145)
[2018-02-05 09:12] LABS: Alanine Aminotransferase 26 U/L (12-78)
[2018-02-05 09:14] LABS: Alkaline Phosphatase 90 U/L (45-117); Total Protein 6.2 g/dL (6.4-8.2)
[2018-02-05 09:19] LABS: Lymphocytes 93 % (9-44); Platelet Morphology Normal (Normal); RBC Morphology Normal (Normal); Smudge Cells Present
[2018-02-05] MEDS: Furosemide 20 MG Tablet PO SCH (10:03)
[2018-02-05] MEDS: Carvedilol 6.25 MG Tablet PO SCH (10:04)
[2018-02-05] MEDS: Senna/Docusate Sodium 8.6/50 MG Tablet PO SCH ×2 (10:04→23:18)
[2018-02-05] MEDS: Famotidine 20 MG Tablet PO SCH (10:04)
[2018-02-05] MEDS: Acyclovir 800 MG Tablet PO SCH ×3 (11:28→14:56)
--- NOTE | 2018-02-05 14:11 | P.PNIM ---
Subjective Interval history: 77-year-old gentleman noted with acute periorbital cellulitis secondary to acute herpes zoster infection. Patient seen and examined, states he is doing okay, pain is fair, does state has trouble with vision, denies nausea vomiting, no shortness of breath or fever Physical Exam Vital signs: Last Vital Signs Temp 99.0 F 02/05/18 12:00 Pulse 78 02/05/18 12:00 Resp 18 02/05/18 12:00 BP 111/55 L 02/05/18 12:00 Pulse Ox 95 02/05/18 12:00 Intake & Output 02/03/18 02/04/18 02/05/18 02/06/18 06:59 06:59 06:59 06:59 Intake Total 104 / 104 50 / 50 Balance 104 / 104 50 / 50 Weight 78.471 kg Pleasant well-developed well-nourished 77-year-old white male Awake alert, mildly forgetful Right periorbital area with edema and excoriation Heart S1-S2 regular with occasional ectopy Lungs clear no wheeze no rhonchi Abdomen soft nondistended positive bowel sounds Extremities no clubbing cyanosis no calf tenderness Results Labs CBC & Chem 7: 02/05/18 08:00 02/05/18 08:00 Imaging Imaging: Impressions Face CT 02/04/18 18:45 CONCLUSION: 1. Negative for fracture 2. Extensive adenopathy suspicious for neoplastic process such as chronic leukemia. Assessment and Plan (1) A-fib: Code(s): I48.91 - Unspecified atrial fibrillation Status: Acute Plan ACUTE HSZ R V1 TRIGEMINAL NERVE concern for Herpes zoster opthalmicus - opthamology consult, iv abx, zovirax, pain control CLL - w port, chronic, w chronic leukocytosis, and thrombocytopenia, fu w oncolology CHF chronic systolic,last EF 20%, compensated CAD w PPM - cont home meds, stable, cont asa JOHN - cpap as tolerated hs HTN - cont home meds DYSLIPIDEMIA - resume statin Hx PE - chronic xarelto CKD II-III stable dvt prophylaxis - xarelto dispo - home when ok w opthamology Progress Note: Quality VTE Deep Vein Thrombosis/Pulmonary Embolism Present on Admission: No
[2018-02-05] MEDS: Acyclovir 200 MG Capsule PO SCH ×3 (15:53→23:15)
[2018-02-05] MEDS: Montelukast 10 MG Tablet PO SCH (18:53)
[2018-02-05] MEDS: Rivaroxaban 20 MG Tablet PO SCH (18:53)
[2018-02-06] MEDS: Acyclovir 200 MG Capsule PO SCH ×3 (05:47→15:12)
[2018-02-06] MEDS: Sod Chloride 0.9% Inj 1,000 ML IV.CONT SCH ×3 (05:53→22:21)
[2018-02-06] MEDS: Furosemide 20 MG Tablet PO SCH (10:14)
[2018-02-06] MEDS: Famotidine 20 MG Tablet PO SCH (10:14)
[2018-02-06] MEDS: Carvedilol 6.25 MG Tablet PO SCH (10:14)
[2018-02-06] MEDS: Senna/Docusate Sodium 8.6/50 MG Tablet PO SCH ×2 (10:14→20:14)
--- NOTE | 2018-02-06 10:53 | P.CON ---
History of Present Illness Service: Ophthalmology Reason for Consult: herpes ophthalmicus Primary Care Provider: UNKNOWN History of Present Illness: 77-year-old male with a PMH of HTN, A. fib on Xarelto, Leukemia and CHF who presented to the ER with complaints of right eye pain and swelling x 2-3 days. States he was seen by his Public Weigher for blurry vision a few days ago and was prescribed Ofloxacin gtts w/ no improvement. Had worsening swelling around his right eye in addition to rash along right forehead and part of face. CT Face negative for fracture, extensive adenopathy suspicious for chronic leukemia. Diagnosed with herpes zoster w/ possible ocular involvement. Currently getting treated with Clinda/Acyclovir. Patient c/o blurred vision OU. No significant ocular history except for cataracts. [facility] - History History Provided By: Patient - Medical History Medical History: Medical History (Last Updated 02/04/18 @ 18:36 by Alyssa Bailey) Cataract GERD (gastroesophageal reflux disease) High cholesterol Port-A-Cath in place Sleep apnea CHF (congestive heart failure) COPD (chronic obstructive pulmonary disease) Leukemia Myocardial infarct - Family History Family History: Family History (Last Updated 01/11/18 @ 13:35 by Matthew Echavarria MD) Other Osteoarthritis - Tobacco History Second Hand Smoke Exposure: No Tobacco Use In Past 30 Days: No Smoking Status: Former smoker Tobacco Type: Cigarettes - Alcohol History How Often Do You Have a Drink Containing Alcohol: Never - Substance Use History Substance History: No History of Abuse - Travel History Recent Travel in the [place] Within the Last 8 Weeks: No Recent Travel Out of the Country Within the Last 8 Weeks: No - Immunization History Tetanus Immunization: Unsure Hx Influenza Vaccine This Season: No Medications and Allergies Active Medications: Active Medications Acetaminophen (Tylenol) 650 mg PO Q4H PRN PRN Reason: Temp > 100.4 Acyclovir (Zovirax) 800 mg PO 5 TIMES A DAY [facility] Last Admin: 02/06/18 10:44 Dose: 800 mg Al Hydroxide/Mg Hydroxide (Milk Of Magnesia Liq) 30 ml PO Q12H PRN PRN Reason: Mild Constipation Aspirin (Ecotrin) 81 mg PO DAILY [facility] Last Admin: 02/06/18 10:14 Dose: 81 mg Bisacodyl (Dulcolax Supp) 10 mg RECTAL DAILY PRN PRN Reason: SEVERE CONSITIPATION Carvedilol (Coreg) 6.25 mg PO DAILY [facility] Last Admin: 02/06/18 10:14 Dose: 6.25 mg Digoxin (Lanoxin) 250 mcg PO Q48H [facility] Last Admin: 02/05/18 03:53 Dose: 250 mcg Famotidine (Pepcid) 20 mg PO DAILY [facility] Last Admin: 02/06/18 10:14 Dose: 20 mg Furosemide (Lasix) 20 mg PO DAILY [facility] Last Admin: 02/06/18 10:14 Dose: 20 mg Sodium Chloride (Ns Inj) 1,000 mls @ 100 mls/hr IV.CONT .Q10H [facility] Last Infusion: 02/06/18 10:44 Dose: 100 mls/hr Clindamycin Phosphate 900 mg/ (Sodium Chloride) 106 mls @ 100 mls/hr IV.SIG Q8H [facility] Last Infusion: 02/06/18 06:53 Dose: Infused Lactulose (Lactulose Liq) 30 ml PO DAILY PRN PRN Reason: SEVERE CONSITIPATION Montelukast Sodium (Singulair) 10 mg PO QPM [facility] Last Admin: 02/05/18 18:53 Dose: 10 mg Morphine Sulfate (Morphine Inj) 2 mg IV.PUSH Q4H PRN PRN Reason: PAIN SCALE 6 TO 10 Ondansetron HCl (Zofran Inj) 4 mg IV.PUSH Q6H PRN PRN Reason: NAUSEA OR VOMITING Pravastatin Sodium (Pravachol) 40 mg PO DAILY@1800 [facility] Last Admin: 02/05/18 18:53 Dose: 40 mg Rivaroxaban (Xarelto) 20 mg PO QPM [facility] Last Admin: 02/05/18 18:53 Dose: 20 mg Sacubitril/Valsartan (Entresto 97 Mg/103 Mg) 1 tab PO BID [facility] Last Admin: 02/06/18 10:44 Dose: 1 tab Senna/Docusate Sodium (Kamilah-Colace) 1 tab PO BID [facility] Last Admin: 02/06/18 10:14 Dose: 1 tab Sennosides (Senokot) 17.2 mg PO Q12H PRN PRN Reason: Moderate Constipation Sodium Chloride (Ns Flush) 2 ml IV.FLUSH BID [facility] Last Admin: 02/06/18 10:14 Dose: Not Given Sodium Chloride (Ns Flush) 2 ml IV.FLUSH PRN PRN PRN Reason: FLUSH AFTER USING IV ACCESS Allergies Allergy/AdvReac Type Severity Reaction Status Date / Time No Known Allergies Allergy Verified 02/04/18 18:13 Home Medications Medication Instructions Recorded Confirmed Type aspirin [Aspir-81] 81 mg PO DAILY 01/11/18 02/04/18 History famotidine 20 mg PO DAILY 01/11/18 02/04/18 History montelukast 10 mg PO QPM 01/11/18 02/04/18 History potassium chloride 20 meq PO DAILY 01/11/18 02/04/18 History Physical Exam Vital signs: Vital Signs 02/05/18 12:00 02/05/18 20:00 02/05/18 23:53 Temperature 99.0 F 98.3 F 97.7 F Pulse Rate 78 79 86 Respiratory Rate 18 18 18 Blood Pressure 111/55 L 110/58 L 112/68 Pulse Oximetry 95 94 L 94 L 02/06/18 00:25 02/06/18 04:00 02/06/18 08:31 Temperature 97.7 F 98.2 F 97.5 F L Pulse Rate 72 113 H 98 H Respiratory Rate 18 8 L 18 Blood Pressure 110/58 L 122/69 125/57 L Pulse Oximetry 95 95 92 L Intake & Output 02/05/18 02/06/18 02/06/18 18:59 06:59 18:59 Intake Total 156 / 156 806 / 806 300 / 300 Balance 156 / 156 806 / 806 300 / 300 Intake: IV 156 / 156 806 / 806 300 / 300 NS Inj 1,000 ML @ 100 mls/hr IV 600 / 600 300 / 300 .CONT .Q10H [facility] Rx#:[id number] Cleocin 900 mg/NS Premix 900 mg 50 / 50 In 50 ml @ 100 mls/hr IV.SIG Q8H [facility] Rx#:[id number] Cleocin Inj 900 MG In NS Inj 106 / 106 206 / 206 100 ML @ 100 mls/hr IV.SIG Q8H [facility] Rx#:[id number] Other: Date of Last Bowel Movement 02/05/18 02/04/18 - Detailed Eye Exam Comments: Va cc at near OD 20/200, OS 20/200 EOM full OU, no diplopia CVF full OU Pupils 2-1 no APD OU IOP normal to palpation OU Anterior exam OD - eyelid edema and vesicles, conj injection, K clear, AC deep, pupil round, cataract OS - normal eyelid, C/S W&Q, K clear, AC deep, pupil round, cataract Dilated exam OD - ON s/p/f, ves normal, vit clear, retina flat OS - ON s/p/f, ves normal, vit clear, retina flat Results - Labs CBC & Chem 7: 02/05/18 08:00 02/05/18 08:00 Assessment and Plan - Assessment (1) Herpes zoster ophthalmicus of right eye Code(s): B02.30 - Zoster ocular disease, unspecified Status: Acute Plan: Continue Acyclovir. Start Viroptic 1 drop 5 times a day in right eye, and Prednisolone 4 times a day in right eye. Follow up in clinic - call for appointment once discharged. [phone]
--- NOTE | 2018-02-06 11:17 | P.PN ---
Subjective Interval history: Follow-up for herpes zoster ophthalmicus with overlying cellulitis. The patient is drowsy upon evaluation, oriented to self, but does not answer any further orientation questions. RN reports the patient is very unsteady on his feet, and not oriented to place or time. Patient reports pain throughout the right face and scalp. He is unable to open his right eye to assess his vision. He denies fevers or chills. Denies any other medical complaints. He frequently falls back asleep throughout examination. Physical Exam Vital signs: Vital Signs 02/05/18 12:00 02/05/18 20:00 02/05/18 23:53 Temperature 99.0 F 98.3 F 97.7 F Pulse Rate 78 79 86 Respiratory Rate 18 18 18 Blood Pressure 111/55 L 110/58 L 112/68 Pulse Oximetry 95 94 L 94 L 02/06/18 00:25 02/06/18 04:00 02/06/18 08:31 Temperature 97.7 F 98.2 F 97.5 F L Pulse Rate 72 113 H 98 H Respiratory Rate 18 8 L 18 Blood Pressure 110/58 L 122/69 125/57 L Pulse Oximetry 95 95 92 L Intake & Output 02/05/18 02/06/18 02/06/18 18:59 06:59 18:59 Intake Total 156 / 156 806 / 806 300 / 300 Balance 156 / 156 806 / 806 300 / 300 Intake: IV 156 / 156 806 / 806 300 / 300 NS Inj 1,000 ML @ 100 mls/hr IV 600 / 600 300 / 300 .CONT .Q10H [facility] Rx#:[id number] Cleocin 900 mg/NS Premix 900 mg 50 / 50 In 50 ml @ 100 mls/hr IV.SIG Q8H [facility] Rx#:[id number] Cleocin Inj 900 MG In NS Inj 106 / 106 206 / 206 100 ML @ 100 mls/hr IV.SIG Q8H [facility] Rx#:[id number] Other: Date of Last Bowel Movement 02/05/18 02/04/18 Narrative: GENERAL: Well-nourished, well-developed pleasant elderly male patient in NAD. Drowsy. SKIN: Warm and dry. Right forehead and scalp with diffuse vesicular rash and overlying erythema, with significant diffuse right periorbital edema/erythema. HEENT: Normocephalic. Atraumatic. Pupils equal and round. Mucous membranes pink and moist. CARDIOVASCULAR: Tachycardic, regular rhythm. No murmur appreciated. RESPIRATORY: No accessory muscle use. Clear to auscultation. Breath sounds equal bilaterally. GASTROINTESTINAL: Abdomen soft, non-tender, nondistended. Normoactive bowel sounds x4. MUSCULOSKELETAL: No obvious deformities. Extremities without clubbing, cyanosis , or edema. NEUROLOGICAL: Awake but drowsy, oriented to self. No obvious cranial nerve deficits. Motor grossly within normal limits. Moving all extremities spontaneously. Normal speech. Results - Labs CBC & Chem 7: 02/05/18 08:00 02/05/18 08:00 - Imaging Face CT 02/04/18 18:45 CONCLUSION: 1. Negative for fracture 2. Extensive adenopathy suspicious for neoplastic process such as chronic leukemia. Assessment and Plan - Assessment (1) A-fib Code(s): I48.91 - Unspecified atrial fibrillation Status: Acute - Plan 77-year-old male with history of leukemia, CAD, CHF, COPD, HLD, JOHN, GERD, HTN, presents with a diffuse right facial rash Sepsis with herpes zoster ophthalmicus and overlying facial cellulitis: Acute. Patient meets sepsis criteria with leukocytosis WBC 23K, tachycardia HR 113, and suspected sourceherpes zoster/cellulitis. -Continue on acyclovir 800 mg po 5 times a day -Continue on antibiotics with IV clindamycin -Consult ophthalmology, recommended starting Viroptic 1 drop 5x/day and Prednisolone 4x/day in R eye. Follow up in clinic after d/c -Consult infectious disease, appreciate assistance -Monitor CBC -Tylenol prn CHF/CAD/HTN/HLD: chronic, systolic CHF with last EF 20%, compensated -continue home meds including aspirin, coreg, digoxin, lasix, entresto, statin, xarelto -avoid fluid overload CLL: chronic, has port in place -continue outpatient f/up with oncology JOHN: chronic -can continue CPAP Hx of PE: chronic -continue patient's xarelto CKD stage III: chronic -avoid nephrotoxins -monitor BMP Weakness/Unsteady Gait: patient noted to be unsteady with ambulation, likely exacerbated by above illness -consult PT All other chronic medical conditions stable, continue home medications as appropriate. DVT Prophylaxis: on Xarelto Discharge Planning: Discharge pending further clinical improvement, ID consult, and PT consult.
[2018-02-06] MEDS: TRIFLURIDINE 1% RIGHT EYE SCH ×3 (15:32→22:21)
[2018-02-06] MEDS: OPTH RIGHT EYE SCH ×3 (15:32→22:21)
--- NOTE | 2018-02-06 17:05 | MB ---
cc: Curtis Zamudio MD DATE: 02/06/2018 REQUESTING PHYSICIAN: SURINDER Marion REASON: Herpes zoster ophthalmicus with suspected overlying cellulitis. HISTORY OF PRESENT ILLNESS: This is a 77-year-old white male who developed pain and swelling of the right eye and was having blurry vision. He saw an finishing range supervisor approximately 3 days ago, and he was prescribed ofloxacin eyedrops. He developed vesicular skin lesions over the right forehead and encompassing the right eyelid. Currently, the right eyelid is closed shut, and he is barely able to open the right eye. He was started on IV acyclovir. This consultation is requested for management. He was seen by Ophthalmology, and there were no retinal lesions seen. Viroptic eyedrops has been prescribed along with prednisolone. He is currently on oral acyclovir and clindamycin. The white count on 02/04/2018 was 23. Yesterday, the white count was 16.8. The patient denies pain in his eyes. He denies headache, nausea, vomiting, fever, or chills. He says that he feels fine otherwise and has no significant pain in the right eye. PAST MEDICAL HISTORY: He states that the right forehead region is not painful. PAST MEDICAL HISTORY: CHF, COPD, GERD, hypercholesteremia, myocardial infarction, leukemia, has Gagvwa-Q-Sspf, sleep apnea. The patient has been followed by the oncology clinic for chronic lymphocytic leukemia. ALLERGIES: NO KNOWN DRUG ALLERGIES. MEDICATIONS: 1. Acyclovir p.o. 2. Ecotrin. 3. Coreg. 4. Clindamycin 5. Lanoxin. 6. Pepcid. 7. Lasix. 8. Singulair. 9. Pravachol. 10. Xarelto. 11. Enteresto. 12. Kamilah-Colace. 13. Viroptic eyedrops. 14. Prednisolone eye drop. SOCIAL HISTORY: Former smoker. No alcohol. No illicit drugs. FAMILY HISTORY: Noncontributory. REVIEW OF SYSTEMS: All systems have been reviewed and are negative. PHYSICAL EXAMINATION: GENERAL: This is a well-developed male who is in no acute distress. He is awake and alert and oriented. VITAL SIGNS: Temperature 98.6. BP 113/56, respirations 20, heart rate 76. HEENT: The right forehead has crusted vesicular lesions, some of which have scabbed and have very dark discoloration and ecchymosis also. This encompasses the right side of the forehead and right eyelids. The eyelids are edematous. The left eye is intact. The extraocular movements of the left eye are intact. No conjunctival erythema. Oropharynx moist mucosa without lesions. NECK: Supple without adenopathy. LUNGS: Clear breath sounds. HEART: Regular S1 and S2, without murmurs. ABDOMEN: Bowel sounds present. Soft, no tenderness appreciated. RECTAL: Not performed. EXTREMITIES: No clubbing, cyanosis, or edema. SKIN: No diffuse rash. NEUROLOGIC: No gross focal findings. PSYCHIATRIC: The patient is calm and cooperative. LABORATORY DATA: WBC 16.8, platelets 71, hemoglobin 12.2. Creatinine 1.43, estimated GFR 48, sodium 139, AST 18, ALT 26. CT scan of the face shows soft tissue swelling of the right frontal bone and right extensive cervical adenopathy, including the posterior triangle, suspicious for neoplastic process such as chronic leukemia. There is soft tissue swelling across the right frontal bone and down to the bridge of the nose. IMPRESSION: 1. Herpes zoster ophthalmicus. 2. Possible superficial infection of the right face overlying the skin lesions from the herpes. 3. Chronic lymphocytic leukemia. CT scan of the face showing extensive adenopathy suspicious for neoplastic process such as chronic leukemia. The patient has been followed by oncology. 4. Renal insufficiency. RECOMMENDATIONS: 1. Change the oral acyclovir to IV in light of the patient having a history of chronic lymphocytic leukemia and hence likely being immunosuppressed. 2. Continue clindamycin for bacterial coverage for possible superimposed cellulitis. 3. Monitor kidney function. 4. Monitor clinical response. Because of the patient's renal function, the acyclovir will be adjusted and given at a dose of 5 mg/kg every 8 hours, and the kidney function will be monitored. Thank you for this consultation. I will follow the patient's progress. Curtis Zamudio MD FFPriscilla/brian , 04:27 PM , 04:38 PM
[2018-02-06] MEDS: SODIUM CHLOR 0.9% IV.SIG SCH (18:30)
[2018-02-06] MEDS: ACYCLOVIR IV.SIG SCH (18:30)
[2018-02-06] MEDS: Rivaroxaban 20 MG Tablet PO SCH (18:30)
[2018-02-06] MEDS: Montelukast 10 MG Tablet PO SCH (18:31)
[2018-02-06] MEDS: prednisoLONE Acetate 1% Opth Susp 5 ML Bottle RIGHT EYE SCH ×2 (18:31→20:16)
[2018-02-06] MEDS: Morphine Sulfate Inj 2 MG/ML Vial IV.PUSH PRN (18:37)
[2018-02-07] MEDS: ACYCLOVIR IV.SIG SCH ×3 (00:14→16:11)
[2018-02-07] MEDS: Sod Chloride 0.9% Inj 1,000 ML IV.CONT SCH ×2 (00:14→08:39)
[2018-02-07] MEDS: SODIUM CHLOR 0.9% IV.SIG SCH ×3 (00:14→16:11)
[2018-02-07] MEDS: Digoxin 250 MCG Tablet PO SCH (02:46)
[2018-02-07] MEDS: TRIFLURIDINE 1% RIGHT EYE SCH ×5 (05:49→23:31)
[2018-02-07] MEDS: OPTH RIGHT EYE SCH ×5 (05:49→23:31)
[2018-02-07 07:51] LABS: Calcium 7.9 mg/dL (8.5-10.1); Carbon Dioxide 19.5 meq/L (21.0-32.0); Potassium 4.1 meq/L (3.5-5.1)
[2018-02-07] MEDS: Famotidine 20 MG Tablet PO SCH (08:37)
[2018-02-07] MEDS: Senna/Docusate Sodium 8.6/50 MG Tablet PO SCH ×2 (08:37→21:07)
[2018-02-07] MEDS: Carvedilol 6.25 MG Tablet PO SCH (08:37)
[2018-02-07] MEDS: Furosemide 20 MG Tablet PO SCH (08:37)
[2018-02-07] MEDS: prednisoLONE Acetate 1% Opth Susp 5 ML Bottle RIGHT EYE SCH ×4 (08:39→21:08)
[2018-02-07] MEDS: Morphine Sulfate Inj 2 MG/ML Vial IV.PUSH PRN ×2 (10:36→16:17)
--- NOTE | 2018-02-07 15:01 | P.PN ---
Subjective Interval history: Nursing denies any acute changes overnight. Patient self says that his eye feels "fantastic" compared to day of admission. Denies any nausea vomiting or headaches. Physical Exam Vital signs: Vital Signs 02/06/18 16:00 02/06/18 20:00 02/06/18 20:14 Temperature 97.6 F 97.4 F L Pulse Rate 73 80 Respiratory Rate 17 22 20 Blood Pressure 101/54 L 113/54 L Pulse Oximetry 95 93 L 02/07/18 00:00 02/07/18 01:14 02/07/18 04:00 Temperature 98 F 97.4 F L Pulse Rate 111 H 81 80 Respiratory Rate 22 18 Blood Pressure 116/83 121/58 L Pulse Oximetry 96 96 02/07/18 08:00 Temperature 98.6 F Pulse Rate 85 Respiratory Rate 22 Blood Pressure 117/64 Pulse Oximetry 95 Intake & Output 02/06/18 02/07/18 02/07/18 18:59 06:59 18:59 Intake Total 506 / 506 700 / 700 1269 / 1269 Output Total 500 / 500 650 / 650 Balance 506 / 506 200 / 200 619 / 619 Weight 78.49 kg 84.2 kg Intake: IV 506 / 506 220 / 220 1269 / 1269 NS Inj 1,000 ML @ 100 mls/hr IV 400 / 400 1000 / 1000 .CONT .Q10H [facility] Rx#:[id number] Zovirax Inj 350 MG In NS Inj 50 114 / 114 57 / 57 ML @ 57 mls/hr IV.SIG Q8H [facility] Rx#:[id number] Cleocin Inj 900 MG In NS Inj 106 / 106 106 / 106 212 / 212 100 ML @ 100 mls/hr IV.SIG Q8H [facility] Rx#:[id number] Oral 480 / 480 Output: Urine 500 / 500 650 / 650 Other: # Voids 3 Date of Last Bowel Movement 02/06/18 # Bowel Movements 1 Narrative: Substantial scabbing and crusting lesions over right forehead leading down to the patient's right eyelid which is edematous, I do not see any obvious vesicles at this time Eyes: Sclera itself is very injected but patient is able to maintain intact range of motion with no pain with eye movement, left eye appears normal Denies any fevers or chills Clear lungs bilaterally, unlabored breathing Results - Labs CBC & Chem 7: 02/08/18 11:53 02/07/18 06:02 Laboratory Results - last 24 hr 02/07/18 06:02 Sodium 136 Potassium 4.1 Chloride 107 Carbon Dioxide 19.5 L Anion Gap 10 BUN 20 H Creatinine 1.16 Estimated GFR 61 L Random Glucose 89 Calcium 7.9 L Assessment and Plan - Assessment (1) A-fib Code(s): I48.91 - Unspecified atrial fibrillation Status: Acute - Plan 77-year-old male who omitted with sepsis secondary to cellulitis and herpes zoster ophthalmicus. Sepsis with herpes zoster ophthalmicus and overlying facial cellulitis/ periorbital cellulitis -Continue acyclovir and clindamycin per ID, will increase dose of acyclovir since RF has improved significantly -Continue Viroptic and prednisolone per ophthalmology CHF/CAD/HTN/HLD: chronic, systolic CHF with last EF 20%, compensated -continue home meds including aspirin, coreg, digoxin, lasix, entresto, statin, xarelto -avoid fluid overload CLL: chronic, has port in place -continue outpatient f/up with oncology JOHN: chronic -can continue CPAP Hx of PE: chronic -continue patient's xarelto Acute on CKD -improving w/ IVFs Weakness/Unsteady Gait: patient noted to be unsteady with ambulation, likely exacerbated by above illness - PT All other chronic medical conditions stable, continue home medications as appropriate. DVT Prophylaxis: on Xarelto Discharge Planning: Discharge pending further clinical improvement, ID consult, and PT consult.
[2018-02-07 16:06] LABS: Baso % (Auto) 0.1 % (0.0-2.0); Eos % (Auto) 0.2 % (0.0-4.0); Hematocrit 32.3 % (39.0-51.0); Hemoglobin 11.2 gm/dL (13.0-17.0); Lymph # (Auto) 21.3 th/mm3 (1.0-4.8); Lymph % (Auto) 86.1 % (9.0-44.0); Mean Corpuscular HGB Conc 34.7 % (32.0-36.0); Mean Corpuscular Hemoglobin 33.4 pg (27.0-34.0); Mean Corpuscular Volume 96.1 fL (80.0-100.0); Mean Platelet Volume 10.1 fL (7.0-11.0); Mono # (Auto) 0.5 th/mm3 (0.0-0.9); Mono % (Auto) 2.2 % (0.0-8.0); Neut # (Auto) 2.8 th/mm3 (1.8-7.7); Neut % (Auto) 11.4 % (16.0-70.0); Platelet Count 67 th/mm3 (150-450); Red Blood Count 3.36 mil/mm3 (4.50-5.90); Red Cell Distribution Width 16.1 % (11.6-17.2); White Blood Count 24.7 th/mm3 (4.0-11.0)
[2018-02-07 17:16] LABS: Lymphocytes 86 % (9-44); Monocytes 3 % (0-8)
[2018-02-07 17:17] LABS: Platelet Morphology Normal (Normal); RBC Morphology Normal (Normal); Smudge Cells Present
[2018-02-07] MEDS: Rivaroxaban 20 MG Tablet PO SCH (18:04)
[2018-02-07] MEDS: Montelukast 10 MG Tablet PO SCH (18:04)
[2018-02-08] MEDS: Acyclovir Inj 700 MG in Sodium Chlor 0.9% Inj 100 ML IV.SIG SCH ×2 (00:39→09:26)
[2018-02-08 04:40] VITALS: O2SAT 95
[2018-02-08] MEDS: TRIFLURIDINE 1% RIGHT EYE SCH ×2 (05:37→09:27)
[2018-02-08] MEDS: OPTH RIGHT EYE SCH ×2 (05:37→09:27)
[2018-02-08 08:53] VITALS: PULSE 80
[2018-02-08] MEDS: Furosemide 20 MG Tablet PO SCH (09:24)
[2018-02-08] MEDS: Senna/Docusate Sodium 8.6/50 MG Tablet PO SCH (09:25)
[2018-02-08] MEDS: Famotidine 20 MG Tablet PO SCH (09:25)
[2018-02-08] MEDS: prednisoLONE Acetate 1% Opth Susp 5 ML Bottle RIGHT EYE SCH ×2 (09:27→12:33)
[2018-02-08] MEDS: Carvedilol 6.25 MG Tablet PO SCH (09:31)
--- NOTE | 2018-02-08 11:52 | P.DIET ---
Nutritional Evaluation Type of nutrition evaluation: initial Nutrition consult regarding: Diet Evaluation Nutrition screening: Weight Loss > 10 lbs Screening comments: 02/08 WLS Objective - Diagnosis periorbital cellulitis, herpes zoster ophithalmatic - Objective Body Mass Index: 26.5 % IBW: 103 (IBW = 184) Body Weight Used for Calculations: Actual (86.3kg) Energy Needs - Lower Range (kCal/kg): 25 Energy Needs - Upper Range (kCal/kg): 30 Lower Limit kCal/kg (kCals): 2,158 Upper Limit kCal/kg (kCals): 2,589 Lower Limit Protein Factor (Grams per Kg): 1.1 Upper Limit Protein Factor (Grams per Kg): 1.3 Lower Protein Needs (Protein): 95 Upper Protein Needs (Protein): 112 Dietitian Reviewed in Medical Record: Current diet, Curent medications, Intake & Output, Labs, Medical history Diet Order: regular Oral Diet Intake Amount: Poor <50% Objective Comments: PMH: CHF, COPD, GERD, high cholesterol, leukemia, [place] LBM 02/06, UOP 970mL Assessment Assessment: Pt currently at nutritional risk r/t reported unplanned wt loss. Pt on a regular diet, consumed around 50% of dinner on 02/06, also refusing multiple meals. RD to recommend Ensure Enlive TID as PO supplement for additional nutrition. Continue to monitor PO and supplement intake. Labs reviewed, dietitian following. Recommendations: 1. RD to recommend Ensure Enlive TID as PO supplement for additional nutrition 2. Continue to monitor PO and supplement intake 3. Dietitian following Dietitian to Monitor: Lab values, Supplement acceptance, Intake & Output, Diet tolerance, Weight change, PO Intake, Medical course
--- NOTE | 2018-02-08 12:06 | P.PNID ---
Subjective Remarks: Says he feels okay. Denies pain or discomfort in the right eye. Denies fever or chills. Facial rash is dry and crusted at the right forehead. This is a 77-year-old white male who developed pain and swelling of the right eye and was having blurry vision. He saw an cost analyst approximately 3 days ago, and he was prescribed ofloxacin eyedrops. He developed vesicular skin lesions over the right forehead and encompassing the right eyelid. Currently, the right eyelid is closed shut, and he is barely able to open the right eye. He was started on IV acyclovir. PAST MEDICAL HISTORY: CHF, COPD, GERD, hypercholesteremia, myocardial infarction, leukemia, has Dcnxej-G-Aljn, sleep apnea. The patient has been followed by the oncology clinic for chronic lymphocytic leukemia. Allergies/Adverse Reactions: Allergies No Known Allergies Allergy (Verified 02/04/18 18:13) Objective Vital Signs 02/07/18 12:00 02/07/18 16:00 02/07/18 20:00 Temperature 97.8 F 98.2 F 98.5 F Pulse Rate 84 83 101 H Respiratory Rate 17 18 22 Blood Pressure 119/59 L 104/59 L 131/60 Pulse Oximetry 97 98 97 02/08/18 00:00 02/08/18 04:00 02/08/18 08:00 Temperature 97.7 F 97.1 F L 98.1 F Pulse Rate 103 H 122 H 80 Respiratory Rate 22 22 20 Blood Pressure 126/60 126/62 109/56 L Pulse Oximetry 98 95 95 Intake & Output 02/07/18 02/08/18 02/08/18 18:59 06:59 18:59 Intake Total 2326 / 2326 460 / 460 106 / 106 Output Total 650 / 650 320 / 320 Balance 1676 / 1676 140 / 140 106 / 106 Weight 86.3 kg Intake: IV 2326 / 2326 220 / 220 106 / 106 NS Inj 1,000 ML @ 100 mls/hr IV 1999 .CONT .Q10H [facility] Rx#:[id number] Zovirax Inj 700 MG In NS Inj 114 / 114 100 ML @ 57 mls/hr IV.SIG Q8H [facility] Rx#:[id number] Zovirax Inj 350 MG In NS Inj 50 114 / 114 ML @ 57 mls/hr IV.SIG Q8H [facility] Rx#:[id number] Cleocin Inj 900 MG In NS Inj 212 / 212 106 / 106 106 / 106 100 ML @ 100 mls/hr IV.SIG Q8H [facility] Rx#:[id number] Oral 240 / 240 Output: Urine 650 / 650 320 / 320 Other: # Voids 1 # Bowel Movements 1 Lab - Hematology Results 02/07/18 14:40 WBC 24.7 H RBC 3.36 L Hgb 11.2 L Hct 32.3 L MCV 96.1 MCH 33.4 MCHC 34.7 RDW 16.1 Plt Count 67 L MPV 10.1 Prelim Diff (Auto) Slide review pending Neut % (Auto) 11.4 L Lymph % (Auto) 86.1 H Kimble % (Auto) 2.2 Eos % (Auto) 0.2 Baso % (Auto) 0.1 Neut # (Auto) 2.8 Lymph # (Auto) 21.3 H Kimble # (Auto) 0.5 Eos # (Auto) 0.0 Baso # (Auto) 0.0 WBC Differential Manual diff final Seg Neuts % (Manual) 11 L Lymphocytes % (Manual) 86 H Monocytes % (Manual) 3 Abs Neuts (Manual) 2.7 Differential Comment . Smudge Cells Present H Platelet Estimate Low L Platelet Morphology Normal RBC Morphology Normal Lab - Chemistry Results 02/07/18 06:02 Sodium 136 Potassium 4.1 Chloride 107 Carbon Dioxide 19.5 L Anion Gap 10 BUN 20 H Creatinine 1.16 Estimated GFR 61 L Random Glucose 89 Calcium 7.9 L Imaging: ITS Impressions Face CT 02/04/18 18:45 CONCLUSION: 1. Negative for fracture 2. Extensive adenopathy suspicious for neoplastic process such as chronic leukemia. Physical Exam: PHYSICAL EXAMINATION: GENERAL: Patient in no acute distress. HEENT: The right forehead has crusted vesicular lesions which Is now dry. This encompasses the right side of the forehead and right eyelids. The right eyelids are less edematous. The left eye is intact. The extraocular movements of the left eye are intact. No conjunctival erythema. Oropharynx moist mucosa without lesions. NECK: Supple without adenopathy. LUNGS: Clear breath sounds. HEART: Regular S1 and S2, without murmurs. EXTREMITIES: No clubbing, cyanosis, or edema. SKIN: No diffuse rash. NEUROLOGIC: No gross focal findings. PSYCHIATRIC: The patient is calm and cooperative. IMPRESSION: 1. Herpes zoster ophthalmicus. Lesions are dry. No apparent complication. 2. Possible superficial infection of the right face overlying the skin lesions from the herpes. 3. Chronic lymphocytic leukemia. CT scan of the face showing extensive adenopathy suspicious for neoplastic process such as chronic leukemia. The patient has been followed by oncology. 4. Renal insufficiency. RECOMMENDATIONS: 1. May be discharged on oral acyclovir for 7 days. 2. Stop clindamycin. Discussed with . He should cover the lesions if he is going to be going outside the home. Contacts with individuals should be avoided.
[2018-02-08 12:22] VITALS: BP 101/55; RESP 16; TEMP 97.3
[2018-02-08 12:46] LABS: Baso # (Auto) 0.1 th/mm3 (0.0-0.2); Baso % (Auto) 0.2 % (0.0-2.0); Eos % (Auto) 0.1 % (0.0-4.0); Hematocrit 33.3 % (39.0-51.0); Hemoglobin 11.3 gm/dL (13.0-17.0); Lymph # (Auto) 28.5 th/mm3 (1.0-4.8); Lymph % (Auto) 88.2 % (9.0-44.0); Mean Corpuscular HGB Conc 33.9 % (32.0-36.0); Mean Corpuscular Hemoglobin 32.4 pg (27.0-34.0); Mean Corpuscular Volume 95.8 fL (80.0-100.0); Mean Platelet Volume 10.2 fL (7.0-11.0); Mono # (Auto) 0.6 th/mm3 (0.0-0.9); Mono % (Auto) 1.9 % (0.0-8.0); Neut # (Auto) 3.1 th/mm3 (1.8-7.7); Neut % (Auto) 9.6 % (16.0-70.0); Platelet Count 66 th/mm3 (150-450); Red Blood Count 3.47 mil/mm3 (4.50-5.90); Red Cell Distribution Width 15.9 % (11.6-17.2); White Blood Count 32.3 th/mm3 (4.0-11.0)
--- NOTE | 2018-02-08 13:29 | P.DS ---
Date of admission: 02/04/18 22:59 Primary care physician: UNKNOWN Brief History from admission: CT Face negative for fracture, extensive adenopathy suspicious for chronic leukemia.This is a 77-year-old male with a PMH of HTN, A. fib on Xarelto, Leukemia and CHF (EF Unknown) who presented to the ER with complaints of right eye pain and swelling x2-3 days. 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 Denies fever or chills. Today w/ worsening swelling around eye in addition to rash along forehead and part of face. On arrival, BP 126/59, HR 77, O2 sat 97% on RA, Afebrile. WBC 23.0, previously 32.4 on 01/12/2018. CT Face negative for fracture, extensive adenopathy suspicious for chronic leukemia. On exam, pt noted to have herpetic rash w/ possible ocular involvement. S/p Clinda/Acyclovir in ER. Currently without complaints. DS: Diagnosis - Discharge Diagnosis (1) A-fib Status: Acute DS: Medications - Discharge Medications Prescriptions: acyclovir 800 mg PO Q4H #35 tab gabapentin See Label Instructions .ROUTE .COMPLEX #90 cap prednisolone acetate 1 drop RIGHT EYE QID #1 vial tramadol 50 mg PO Q8H PRN #12 tab PRN Reason: pain not relieved by gabapenti trifluridine 1 drop RIGHT EYE 5 TIMES A DAY #1 vial DS: Summary Hospital Course: Patient was admitted, started on antivirals and antibiotics for shingles outbreak and possible superimposed periorbital cellulitis. Ophthalmology started the patient on intraocular antibiotics and steroids. ID has been consulted and help de-escalate antimicrobials. Patient's lesions crusted over and was able to spontaneously open his eye and maintain vision. Patient has been maximal benefit from hospitalization is clinically stable for discharge. Patient was counseled extensively on covering his skin lesions and absolutely refraining from being present around women. Warned about the teratogenic risk of varicella-zoster outbreak. - Time Spent with Patient Total time spent providing and/or coordinating discharge services: Less than 30 minutes - Quality: VTE Deep Vein Thrombosis/Pulmonary Embolism Present on Admission: No Exam Vital signs: Vital Signs 02/07/18 16:00 02/07/18 20:00 02/08/18 00:00 Temperature 98.2 F 98.5 F 97.7 F Pulse Rate 83 101 H 103 H Respiratory Rate 18 22 22 Blood Pressure 104/59 L 131/60 126/60 Pulse Oximetry 98 97 98 02/08/18 04:00 02/08/18 08:00 02/08/18 12:00 Temperature 97.1 F L 98.1 F 97.3 F L Pulse Rate 122 H 80 80 Respiratory Rate 22 20 16 Blood Pressure 126/62 109/56 L 101/55 L Pulse Oximetry 95 95 95 Intake & Output 02/07/18 02/08/18 02/08/18 18:59 06:59 18:59 Intake Total 2326 / 2326 460 / 460 220 / 220 Output Total 650 / 650 320 / 320 Balance 1676 / 1676 140 / 140 220 / 220 Weight 86.3 kg Intake: IV 2326 / 2326 220 / 220 220 / 220 NS Inj 1,000 ML @ 100 mls/hr IV 1999 / 1999 .CONT .Q10H [facility] Rx#:[id number] Zovirax Inj 700 MG In NS Inj 114 / 114 114 / 114 100 ML @ 57 mls/hr IV.SIG Q8H [facility] Rx#:[id number] Zovirax Inj 350 MG In NS Inj 50 114 / 114 ML @ 57 mls/hr IV.SIG Q8H [facility] Rx#:[id number] Cleocin Inj 900 MG In NS Inj 212 / 212 106 / 106 106 / 106 100 ML @ 100 mls/hr IV.SIG Q8H [facility] Rx#:[id number] Oral 240 / 240 Output: Urine 650 / 650 320 / 320 Other: # Voids 1 # Bowel Movements 1 Narrative: Substantial scabbing and crusting lesions over right forehead leading down to the patient's right eyelid which far less edematous today, is able to open his eyes spontaneously I do not see any obvious vesicles at this time Eyes: Sclera itself is very injected but patient is able to maintain intact range of motion with no pain with eye movement, left eye appears normal Denies any fevers or chills Clear lungs bilaterally, unlabored breathing Results Labs on day of discharge: Labs from last 24 hours 02/08/18 02/07/18 11:53 14:40 WBC 32.3 H 24.7 H RBC 3.47 L 3.36 L Hgb 11.3 L 11.2 L Hct 33.3 L 32.3 L MCV 95.8 96.1 MCH 32.4 33.4 MCHC 33.9 34.7 RDW 15.9 16.1 Plt Count 66 L 67 L MPV 10.2 10.1 Prelim Diff (Auto) Slide review pending Slide review pending Neut % (Auto) 9.6 L 11.4 L Lymph % (Auto) 88.2 H 86.1 H [place] % (Auto) 1.9 2.2 Eos % (Auto) 0.1 0.2 Baso % (Auto) 0.2 0.1 Neut # (Auto) 3.1 2.8 Lymph # (Auto) 28.5 H 21.3 H [place] # (Auto) 0.6 0.5 Eos # (Auto) 0.0 0.0 Baso # (Auto) 0.1 0.0 WBC Differential Pending Manual diff final Seg Neuts % (Manual) 11 L Lymphocytes % (Manual) 86 H Monocytes % (Manual) 3 Abs Neuts (Manual) 2.7 Differential Comment . . Smudge Cells Present H Platelet Estimate Low L Platelet Morphology Normal RBC Morphology Normal - Impressions ITS Impressions Face CT 02/04/18 18:45 CONCLUSION: 1. Negative for fracture 2. Extensive adenopathy suspicious for neoplastic process such as chronic leukemia. Discharge Plan - Discharge Disposition Patient Disposition: 01 Discharge Home - Discharge Condition Condition: Stable - Discharge Order Discharge Orders: Discharge Order (Routine); Ordered 02/08/18 Ordered By: Ye Ramos ED Use Only Admit Order (Routine); Ordered 02/04/18 Ordered By: Kerry Luna - Discharge Details Discharge Comment: DC once cleared w/ ID - Physicians Team Primary Care Provider: UNKNOWN, Attending Provider: Ye Ramos Other Providers: Cheri Rodriguez MD ; Curtis Zamudio MD
[2018-02-08 13:48] LABS: Acanthocytes Occ; Lymphocytes 87 % (9-44); Ovalocytes 1+
[2018-02-08 13:49] LABS: Platelet Morphology Normal (Normal); Smudge Cells Present
== END 2018-02-08 15:03 | disposition home or self-care (01) ==
LOC: NEDA 18:08 → NEPD 18:08 → NEDA 22:54 → NEPGCP 22:57 → NEPHCDU 02-05 15:59 → N07 02-06 17:24
PROVIDERS: ADMIT Hospitalist; ATTEND Hospitalist